=== PATIENT | male | born 1935 | race Caucasian/White ===

== ENCOUNTER 2016-04-04 16:39 | Inpatient (IN) | payer MEDICARE, OTHER ==
[2016-04-04] MEDS ORDERED: ONDANSETRON 4 MG TAB.RAPDIS PO ONE (16:47)
--- NOTE | 2016-04-04 16:47 | ER Document Report ---
ED Medical Screen (RME) - General Stated Complaint: ABDOMINAL PAIN Mode of Arrival: Ambulatory Information source: Patient Notes: 80 y/o M presents to ED c/o burning and squeezing type generalized abd pain with associated nausea over the last 4 days. I have greeted and performed a rapid initial assessment of this patient. A comprehensive ED assessment and evaluation of the patient, analysis of test results and completion of the medical decision making process will be conducted by additional ED providers. TRAVEL OUTSIDE OF THE [place] IN LAST 30 DAYS: No - Related Data Allergies/Adverse Reactions: No Known Allergies Allergy (Verified 04/04/16 16:44) Past Medical History - Past Medical History Cardiac Medical History: Denies: Hx Heart Attack, Hx Hypertension Pulmonary Medical History: Denies: Hx Asthma Neurological Medical History: Denies: Hx Cerebrovascular Accident, Hx Seizures GI Medical History: Denies: Hx Hepatitis, Hx Hiatal Hernia, Hx Ulcer Infectious Medical History: Denies: Hx Hepatitis Past Surgical History: Denies: Hx Open Heart Surgery, Hx Pacemaker Physical Exam - General General appearance: Alert In distress: None - Respiratory Respiratory status: No respiratory distress
[2016-04-04 17:31] LABS: ABSOLUTE BASOPHILS # (AUTO) 0.1 10^3/uL (0.0-0.2); ABSOLUTE MONOCYTES (AUTO) 1.2 10^3/uL (0.1-1.4); ABSOLUTE NEUT (AUTO) 15.4 10^3/uL (1.7-8.2); BASOPHILS % (AUTO) 0.5 % (0-2); EOSINOPHILS % (AUTO) 0.2 % (0-6); HEMATOCRIT 42.9 % (37.9-51.0); HGB HCT DIFFERENCE 2.1; LYMPHOCYTES % (AUTO) 5.9 % (13-45); MEAN CORPUSCULAR HEMOGLOBIN 30.9 pg (27.0-33.4); MEAN CORPUSCULAR HGB CONC 34.9 g/dL (32.0-36.0); MEAN CORPUSCULAR VOLUME 89 fl (80-97); MONOCYTES % (AUTO) 6.7 % (3-13); RED BLOOD COUNT 4.85 10^6/uL (4.35-5.55); RED CELL DISTRIBUTION WIDTH 12.9 % (11.5-14.0); SEGMENTED NEUTROPHILS % (AUTO) 86.7 % (42-78); WHITE BLOOD COUNT 17.8 10^3/uL (4.0-10.5)
[2016-04-04 17:55] LABS: ALANINE AMINOTRANSFERASE 38 U/L (21-72); ALBUMIN 3.5 g/dL (3.5-5.0); ALKALINE PHOSPHATASE 91 U/L (38-126); ANION GAP 12 (5-19); ASPARTATE AMINO TRANSFERASE 35 U/L (17-59); BILIRUBIN,TOTAL 0.8 mg/dL (0.2-1.3); BLOOD UREA NITROGEN 23 mg/dL (7-20); CALCIUM 9.1 mg/dL (8.4-10.2); CARBON DIOXIDE 24 mmol/L (22-30); CHLORIDE 100 mmol/L (98-107); CREATININE RESULT 0.78 mg/dL (0.52-1.25); GLUCOSE 97 mg/dL (75-110); LIPASE 231.4 U/L (23-300); SODIUM 135.8 mmol/L (137-145)
[2016-04-04] MEDS ORDERED: ONDANSETRON HCL INJ/PF 4 MG/2 ML SDV IV ONE (20:38)
[2016-04-04] MEDS ORDERED: NORMAL SALINE 1000 ML 1,000 ML IV ONE (20:38)
[2016-04-04] MEDS ORDERED: MORPHINE SULFATE 10 MG/ML INJ IV ONE (20:38)
--- NOTE | 2016-04-04 20:41 | ER Document Report ---
ED GI/ - General Chief Complaint: Abdominal Pain Stated Complaint: ABDOMINAL PAIN Time seen by provider: 20:30 Mode of Arrival: Ambulatory Notes: Patient is an 80-year-old male that comes emergency department for chief complaint of pain in his abdomen, over almost the entire abdomen, symptoms started almost 4 days ago and have been worsening, he states he has been having difficulty eating today and the pain became unbearable tonight. Patient denies fever. Patient denies abnormal bowel movements, denies vomiting but states he has developed nausea today. Patient denies any daily medications, reports past medical history of orthopedic surgeries on his shoulder and knees, denies any abdominal surgeries. TRAVEL OUTSIDE OF THE [place] IN LAST 30 DAYS: No - Related Data Allergies/Adverse Reactions: No Known Allergies Allergy (Verified 04/04/16 16:44) Past Medical History - General Information source: Patient - Social History Smoking Status: Never Smoker Chew tobacco use (# tins/day): No Frequency of alcohol use: None Drug Abuse: None Lives with: Family Family History: Reviewed & Not Pertinent Patient has suicidal ideation: No Patient has homicidal ideation: No - Past Medical History Cardiac Medical History: Reports: Hx Atrial Fibrillation Denies: Hx Hypertension Pulmonary Medical History: Denies: Hx Asthma Neurological Medical History: Denies: Hx Cerebrovascular Accident, Hx Seizures Renal/ Medical History: Denies: Hx Peritoneal Dialysis GI Medical History: Reports: Hx Gastroesophageal Reflux Disease. Denies: Hx Hepatitis, Hx Hiatal Hernia, Hx Ulcer Infectious Medical History: Denies: Hx Hepatitis Past Surgical History: Reports: Hx Orthopedic Surgery. Denies: Hx Open Heart Surgery, Hx Pacemaker - Immunizations Hx Diphtheria, Pertussis, Tetanus Vaccination: Yes Review of Systems - Review of Systems Constitutional: No symptoms reported EENT: No symptoms reported Cardiovascular: No symptoms reported Respiratory: No symptoms reported Gastrointestinal: See HPI Genitourinary: No symptoms reported Male Genitourinary: No symptoms reported Musculoskeletal: No symptoms reported Skin: No symptoms reported Hematologic/Lymphatic: No symptoms reported Neurological/Psychological: No symptoms reported Physical Exam - Vital signs Vitals: Temp Pulse Resp BP Pulse Ox 100.4 F 86 24 H 143/62 H 96 04/04/16 16:45 04/04/16 16:45 04/04/16 16:45 04/04/16 16:45 04/04/16 16:45 Interpretation: Normal - General General appearance: Appears well In distress: None - Patient does not appear to be in any distress - HEENT Head: Normocephalic, Atraumatic Eyes: Normal Pupils: PERRL - Respiratory Respiratory status: No respiratory distress Chest status: Nontender Breath sounds: Normal. No: Decreased air movement, Wheezing Chest palpation: Normal - Cardiovascular Rhythm: Regular. No: Irregularly irregular, Tachycardia Heart sounds: Normal auscultation, S1 appreciated, S2 appreciated Murmur: No - Abdominal Inspection: Normal Distension: No distension Bowel sounds: Normal Tenderness: Tender - Patient is tender with significant tenderness in the mid right to upper right abdomen; remaining abdomen is soft and benign - Back Back: Normal, Nontender. No: Tender - Extremities General upper extremity: Normal inspection, Nontender, Normal strength, Normal temperature General lower extremity: Normal inspection, Nontender, Normal strength, Normal temperature - Neurological Neuro grossly intact: Yes Cognition: Normal Orientation: AAOx4 [place] Coma Scale Eye Opening: Spontaneous [place] Coma Scale Verbal: Oriented [place] Coma Scale Motor: Obeys Commands [place] Coma Scale Total: 15 Speech: Normal Motor strength normal: LUE, RUE, LLE, RLE Sensory: Normal - Psychological Associated symptoms: Normal affect, Normal mood - Skin Skin Temperature: Warm Skin Moisture: Dry Skin Color: Normal Course - Re-evaluation Re-evalutation: Patient with significant tenderness on examination of the mid and upper right abdomen. Low-grade fever. Leukocytosis at 17,000 with no vomiting or other obvious explanation. Concern for acute abdomen. Acute abdominal series does not show any abnormalities, performing CAT scan. CAT scan suggestive of possible cholecystitis, no other acute abnormalities. Ultrasound will be performed to further evaluate the patient. Patient was discussed with Dr. Hernandez per [facility] guidelines. Patient will be given Invanz antibiotics broad- spectrum coverage. Is being given IV fluids. Patient was given Tylenol for fever. 04/05/16 02:30 Spoke with visitor services information assistant, Dr. Morrow, patient will be admitted for suspected cholecystitis and possible sepsis. Repeated vitals again, repeat vitals show no fever but now patient has tachycardia, moving to a different room. Patient placed on monitor, patient was found to be in atrial fibrillation with RVR, I asked patient if he had a history of A. fib and he states he does, he states that he takes Eliquis and heart rate medication at home. Patient also takes Nexium. I reminded him that he told me he took no daily medications and had no other medical history other than orthopedic surgeries, he states that he forgot. Initial nurse also states patient denied any daily medications. Patient states he has not taken Eliquis for 1 week. Given Cardizem bolus, will place on Cardizem drip. Patient still denies any chest pain, denies shortness of breath. Discussed with Dr. Hernandez again, recommends heparin instead of Lovenox because of upcoming suspected surgery. Called Dr. Morrow back for an update, recommends admit to medicine with surgical consult. Patient's heart rate improved on Cardizem bolus and drip, on heparin drip, patient with no current complaints. Discussed with Dr. Grover, internal medicine, patient will be admitted to the ICU. - Vital Signs Vital signs: Temp Pulse Resp BP Pulse Ox 98.6 F 123 H 24 H 119/75 94 04/05/16 02:18 04/05/16 02:18 04/04/16 16:45 04/05/16 02:18 04/05/16 02:18 - Laboratory Result Diagrams: 04/04/16 17:12 04/04/16 17:12 Laboratory results interpreted by me: 04/04/16 04/04/16 04/04/16 17:12 17:12 21:20 WBC 17.8 H Seg Neutrophils % 86.7 H Lymphocytes % 5.9 L Absolute Neutrophils 15.4 H APTT Sodium 135.8 L BUN 23 H Urine Protein 100 H Urine Ketones TRACE H 04/05/16 04:00 WBC Seg Neutrophils % Lymphocytes % Absolute Neutrophils APTT 40.7 H Sodium BUN Urine Protein Urine Ketones Critical Care Note - Critical Care Note Total time excluding time spent on procedures (mins): 50 - acute cholelithiasis , fever, atrial fibrillation with RVR Comments: Please allow 50 minutes of critical care time for evaluation and treatment of patient with acute cholecystitis and fever with pain medication, IV fluids, antibiotics. Treatment of atrial fibrillation with rapid ventricular response with Cardizem bolus, drip, heparin bolus, heparin drip. Consultation with surgery, consultation with hospitalist, multiple re-evaluations, admission to the ICU. Discharge - Discharge Clinical Impression: Cholecystitis, Atrial fibrillation with rapid ventricular response Abdominal pain Qualifiers: Abdominal location: generalized Qualified Code(s): R10.84 - Generalized abdominal pain Leukocytosis Qualifiers: Leukocytosis type: unspecified Qualified Code(s): D72.829 - Elevated white blood cell count, unspecified Fever Qualifiers: Fever type: unspecified Qualified Code(s): R50.9 - Fever, unspecified Condition: Stable Disposition: ADMITTED INPATIENT Admitting Provider: Hospitalist - Dr. Grover Unit Admitted: ICU
[2016-04-04] MEDS ORDERED: ACETAMINOPHEN 325 MG TABLET PO ONE (20:58)
[2016-04-04 21:44] LABS: APPEARANCE,URINE CLEAR; BILIRUBIN,URINE NEGATIVE (NEGATIVE); GLUCOSE, URINE NEGATIVE (NEGATIVE); KETONES,URINE TRACE mg/dL (NEGATIVE); LEUKOCYTE ESTERASE,URINE NEGATIVE (NEGATIVE); NITRITE,URINE NEGATIVE (NEGATIVE); PROTEIN,URINE 100 mg/dL (NEGATIVE); URINE SPECIFIC GRAVITY 1.027; UROBILINOGEN,URINE NEGATIVE mg/dL (<2.0)
[2016-04-05] MEDS ORDERED: ERTAPENEM SODIUM INJ 1 GM VIAL IV ONE (00:20)
[2016-04-05] MEDS ORDERED: NORMAL SALINE 1000 ML 1,000 ML IV PRN ×2 (02:18→14:32)
[2016-04-05] MEDS ORDERED: NORMAL SALINE 1000 ML 1,000 ML IV ONE (02:24)
[2016-04-05] MEDS ORDERED: DILTIAZEM HCL INJ 25 MG/5 ML VIAL IV ONE (03:14)
[2016-04-05] MEDS ORDERED: DILTIAZEM HCL/D5W 125 ML IV PRN ×3 (03:33→14:35)
[2016-04-05] MEDS ORDERED: HEPARIN SOD (PORCINE) 1,000 UNIT/ML 10 ML VIAL IV ONE (03:34)
[2016-04-05] MEDS ORDERED: HEPARIN SOD (PORCINE) 1,000 UNIT/ML 10 ML VIAL IV PRN ×2 (03:34→07:28)
[2016-04-05] MEDS ORDERED: HEPARIN SODIUM,PORCINE/D5W 250 ML IV PRN ×2 (03:34→07:28)
[2016-04-05 04:15] LABS: PROTHROMBIN TIME 15.1 SEC (11.4-15.4)
[2016-04-05 04:16] LABS: PARTIAL THROMBOPLASTIN TIME 40.7 SEC (23.5-35.8)
[2016-04-05] MEDS ORDERED: ACETAMINOPHEN 325 MG TABLET PO PRN (07:39)
[2016-04-05] MEDS ORDERED: MAGNESIUM HYDROXIDE SUSP 30 ML UDCUP PO PRN (07:39)
[2016-04-05] MEDS ORDERED: DEXTROSE 5%-NORMAL SALINE 1,000 ML IV PRN (07:40)
[2016-04-05] MEDS ORDERED: MORPHINE SULFATE 10 MG/ML INJ IV PRN ×2 (07:43→12:24)
--- NOTE | 2016-04-05 08:24 | PDOC H&P ---
History of Present Illness Admission Date/PCP: 04/05/16 04:39 Dr. Garcia Patient complains of: Abdominal pain History of Present Illness: ESTER CARTER JR is a 80 year old male with underlying chronic atrial fibrillation, on Eliquis for same, along with mild reflux and arthritis who presents to the emergency room for evaluation of a four-day history of slowly progressive mostly upper abdominal combination cramping and sharp pain with associated nausea and nonbloody non-coffee ground emesis. Nothing in particular made the pain worse, just simply gradually increased with time. Patient states he's felt so bad over the last several days that he basically has taken no medication whatsoever, including his Eliquis, along with other medications. No prior such episodes of pain. No specific fatty food intolerance. No previous known gallbladder problems. No dysuria, and only one episode of diarrhea. No fever or chills. No history of peptic ulcer disease. Patient has been discussed with emergency room nurse practitioner who evaluated the patient. Prior to my being contacted, the nurse practitioner did discuss the patient more than once with the on-call surgicalist. Request made to admit to hospitalist service with surgery consult, due to multiple ongoing significant problems.. Patient was noted to be in atrial fibrillation with rapid ventricular response and was started on Cardizem drip by the emergency room staff. When it was realized that patient had been off Eliquis for a number of days, he was also started on heparin drip, also by the emergency room staff. Laboratory results are listed in [employer] and are reviewed. X-ray summary results are listed below, with full report(s) reviewed. . EKG reviewed. No old EKG available for comparison. Social history/personal habits: . Lives alone. Retired. 2 sons. No tobacco use for 30+ years. Rare alcohol use. No illicit drug use. Allergies/adverse reactions NKDA. Home medications Home medications initially autopopulated into [employer] may not accurately reflect patient's true medications, dosages, and/or frequencies. Unfortunately, patient uncertain of medications/dosages/frequencies. Order has been entered for staff to contact family, outpatient physician, and/or pharmacy to more accurately determine medications, dosages, and frequencies and to contact physician when that has been accomplished. REVIEW OF SYSTEMS: Constitutional: No fever or chills. Eyes: Wears glasses. ENT: No swallowing problems or complaints. Partial hearing loss. Pulmonary: No current complaints. Cardiovascular: No current complaints, including chest pain. Gastrointestinal: See history and present illness. Skin: No current complaints, including rashes. Hematologic: No unusual easy bruising or bleeding. Neurologic: No current complaints, including numbness or tingling. Musculoskeletal: Joint pain from arthritis. Psychiatric: No current complaints, including anxiety or depression. [ Endocrine: No current complaints, including polyuria. Genitourinary: No current complaints, including dysuria. PHYSICAL EXAMINATION: 5 feet 6 inches tall. 112 kg. BMI 39.9 kg/m. Blood pressure 134/73. Pulse 118 and slightly irregular. 93% saturation on room air. Respirations are 27 and unlabored. Temperature 98.6; 100.4 upon arrival in the emergency room. Obese but also somewhat stocky, somewhat chronically ill-appearing elderly male, who nevertheless appears a bit younger than his stated age. Pleasant awake alert and cooperative. Appears to be perhaps slightly fatigued, and to feel perhaps a bit under the weather, so to speak. Skin is warm and dry. No grossly obvious evidence of rash in areas of skin examined. No subcutaneous nodules palpated. ENT: Mildly hard of hearing to normal conversation. Tongue midline on protrusion pink and slightly tacky. Eyes: No scleral icterus. Pupils equal and reactive to light at 4 mm. [place] conjunctivae. Neck is supple and nontender to gentle active range of motion and palpation. Midline trachea. No palpable thyroid nodule mass enlargement or tenderness. Lymphatic: No palpable cervical or clavicular nodes. Neck and lymphatic exams limited by patient body habitus. Psychiatric: Fair to reasonable insight into acute and chronic medical issues. Oriented to time location and why here. Rather talkative gentleman. Lungs: Auscultation reveals clear and equal breath sounds bilaterally. No use of accessory respiratory muscles. Cardiovascular: Heart regular rate and rhythm, without gallop murmur or rub. No carotid or abdominal aortic bruits. No ankle or pedal edema. Faintly palpable dorsalis pedis pulses. Abdomen: soft, obese, slightly distended nontender, other than quite scant right upper quadrant tenderness to palpation, with positive bowel sounds. Unable to adequately evaluate abdomen for masses or organomegaly due to body habitus and distention. Extremities: Feet are warm and dry. No calf tenderness to compression. No grossly obvious visual evidence of calf swelling. Gentle manipulation of lower extremities fails to reveal any obvious evidence of injury or instability to knees hips or ankles. Neurologic: Moves upper extremities grossly normally. Patellar reflexes absent. Absent Babinski. Light touch is intact at feet. Dorsiflexion and plantarflexion of feet 5 / 5 and symmetric. Past Medical History Cardiac Medical History: Reports: Atrial Fibrillation Denies: DVT, Myocardial Infarction, Hyperlipidema, Hypertension, Pulmonary Embolism Pulmonary Medical History: Denies: Asthma, Chronic Obstructive Pulmonary Disease (COPD) EENT Medical History: Reports: Eyes - Glasses, Ears - Partial hearing loss Denies: Throat Neurological Medical History: Denies: Hemorrhagic CVA, Ischemic CVA, Seizures Endocrine Medical History: Denies: Diabetes Mellitus Type 1, Diabetes Mellitus Type 2, Hyperthyroidism, Hypothyroidism Renal/ Medical History: Reports: None GI Medical History: Reports: Gastroesophageal Reflux Disease Denies: Cirrhosis, Hepatitis, Hiatal Hernia, Peptic Ulcer Disease Musculoskeltal Medical History: Reports: Arthritis Skin Medical History: Reports: None Psychiatric Medical History: Denies: Alcohol Dependency, Depression, General Anxiety Disorder, Substance Abuse, Tobacco Dependency Hematology: Denies: Anemia Infectious Medical History: Denies: Hepatitis B, Hepatitis C Past Surgical History Past Surgical History: Reports: Orthopedic Surgery - Bilateral total knee replacement. Right shoulder surgery. Social History Information Source: Patient, Emergency Med Personnel, [facility] Records Lives with: Alone Smoking Status: Former Smoker Frequency of Alcohol Use: Rare Drugs: None - Advance Directive Resuscitation Status: Full Code Surrogate healthcare decision maker:: His son Cornelius. Family History Family History: Reviewed & Not Pertinent Parental Family History Reviewed: Yes Children Family History Reviewed: Yes Sibling(s) Family History Reviewed.: Yes Medication/Allergy Home Medications: Apixaban [Eliquis 5 mg Tablet] 5 mg PO BID 04/05/16 Esomeprazole Magnesium [Nexium] 40 mg PO DAILY 04/05/16 Acidoph/L.bulg/Bif.b/S.thermop [Bacid Caplet] 1 each PO BID #20 tablet 04/09/16 Amox Tr/Potassium Clavulanate [Augmentin "500" Tablet] 1 tab PO Q8 #15 tablet 04/09/16 Furosemide [Lasix] 20 mg PO QAM #0 04/09/16 Metoprolol Succinate [Toprol Xl 25 mg Tab.sr] 25 mg PO DAILY #30 tab.sr.24h Tamsulosin HCl [Flomax 0.4 mg Cap.sr] 0.4 mg PO DAILY #30 cap.sr.24h 04/09/16 Allergies/Adverse Reactions: No Known Allergies Allergy (Verified 04/04/16 16:44) Physical Exam Vital Signs: Temp Pulse Resp BP Pulse Ox 98.6 F 123 H 24 H 119/75 94 04/05/16 02:18 04/05/16 02:18 04/04/16 16:45 04/05/16 02:18 04/05/16 02:18 Results Impressions: Abdomen/Pelvis CT 04/04/16 00:00 IMPRESSION: 1. QUESTIONABLE FAINT INFLAMMATION ADJACENT TO THE GALLBLADDER, POSSIBLE CHOLECYSTITIS. NO DEFINITE CALCIFIED STONES IDENTIFIED, ALTHOUGH CT CAN HAVE A LOW SENSITIVITY FOR SMALL CALCULI. 2. FATTY LESION IN THE RIGHT ADRENAL GLAND, POSSIBLE ADENOMA OR MYELOLIPOMA. 3. SMALL CORTICAL CYSTS IN THE LEFT KIDNEY. 4. NO OTHER SIGNIFICANT FINDING. Acute Abdomen Series 04/04/16 16:45 IMPRESSION: NO RADIOGRAPHIC EVIDENCE FOR ACUTE ABDOMINAL DISEASE. Abdomen Ultrasound 04/05/16 00:28 IMPRESSION: SLUDGE IN THE GALLBLADDER. MILD GALLBLADDER WALL THICKENING AND TRACE PERICHOLECYSTIC FLUID. POSSIBLE CHOLECYSTITIS. Assessment & Plan - Diagnosis (1) Atrial fibrillation with rapid ventricular response Is this a current diagnosis for this admission?: YesPlan: Currently on Cardizem drip. Wean as tolerated.Resume home medications as appropriate once these have been determined and reviewed. (2) Cholecystitis Is this a current diagnosis for this admission?: YesPlan: Surgery consult. Preop cardiology consult. Antibiotics will consist of Zosyn along with intravenous Flagyl. I have strongly encouraged patient not to get out of bed without notifying staff , to avoid a fall with injury. Knee high SCDs for DVT prophylaxis; with patient systemically anticoagulated, no need for Lovenox or subcutaneous heparin.]Resume home medications as appropriate once these have been determined and reviewed. Impression and plans were discussed with patient, who concurs. Time spent in evaluation and management of patient: 74 minutes. (3) Noncompliance Is this a current diagnosis for this admission?: Yes (4) Anticoagulated Is this a current diagnosis for this admission?: YesPlan: Resume home medications as appropriate once these have been determined and reviewed. - Inpatient Certification Based on my medical assessment, after consideration of the patient's comorbidities, presenting symptoms, or acuity I expect that the services needed warrant INPATIENT care.: Yes I certify that my determination is in accordance with my understanding of Medicare's requirements for reasonable and necessary INPATIENT services [42 CFR 412.3e].: Yes Medical Necessity: Need Close Monitoring Due to Risk of Patient Decompensation, Need For IV Fluids, Need For Continuous Telemetry Monitoring, Need for IV Antibiotics, Need for Surgery, Risk of Diagnosis Which Will Require Inpatient Eval/Care/Monitoring Post Hospital Care: D/C or Transfer Summary
[2016-04-05] MEDS ORDERED: PIPERACILLIN SODIUM/TAZOBACTAM 4.5 GM in NORMAL SALINE 100 ML IV ONE (08:30)
[2016-04-05] MEDS ORDERED: METRONIDAZOLE 500 MG/NS RTU 100 ML IV ONE (08:30)
[2016-04-05] MEDS ORDERED: BUPIVACAINE HCL 0.25 % INJ/PF (2.5 MG/1 ML) 30 ML VIAL ONE (08:46)
[2016-04-05 08:59] LABS: ABSOLUTE BASOPHILS # (AUTO) 0.1 10^3/uL (0.0-0.2); ABSOLUTE EOSINOPHILS # (AUTO) 0.1 10^3/uL (0.0-0.6); ABSOLUTE NEUT (AUTO) 13.1 10^3/uL (1.7-8.2); BASOPHILS % (AUTO) 0.8 % (0-2); EOSINOPHILS % (AUTO) 0.5 % (0-6); HEMATOCRIT 43.1 % (37.9-51.0); HGB HCT DIFFERENCE 1.9; LYMPHOCYTES % (AUTO) 6.3 % (13-45); MEAN CORPUSCULAR HEMOGLOBIN 31.1 pg (27.0-33.4); MEAN CORPUSCULAR HGB CONC 34.9 g/dL (32.0-36.0); MEAN CORPUSCULAR VOLUME 89 fl (80-97); MONOCYTES % (AUTO) 6.5 % (3-13); RED BLOOD COUNT 4.83 10^6/uL (4.35-5.55); RED CELL DISTRIBUTION WIDTH 12.9 % (11.5-14.0); SEGMENTED NEUTROPHILS % (AUTO) 85.9 % (42-78); WHITE BLOOD COUNT 15.3 10^3/uL (4.0-10.5)
--- NOTE | 2016-04-05 09:13 | CONSULTATION REPORT E ---
Consultation Report NAME: ESTER CARTER : 1935 AGE: 80Y DATE: *------* ED10 A TO: ALBINA HOLLAND M.D. FROM: ENRIQUE ROBERTS M.D. Requesting Physician REQUESTING PHYSICIAN: The patient seen at the request of the Emergency Department. HISTORY OF PRESENT ILLNESS: The patient is an 80-year-old white male, who comes by ground rescue to [facility] Emergency [facility], complaining of acute onset abdominal pain, primarily in the right upper quadrant and epigastric region. This was associated with difficulty eating and some radiation to the back. The symptoms started 4 days ago, but escalated in intensity. He denies vomiting but had some nausea. Bowel movements have been normal otherwise. He has no history of gastrointestinal problems. He was seen in the emergency department, where he was worked up and found to have significant right upper quadrant tenderness, a leukocytosis and ultrasonographic findings consistent with cholecystitis. A CT scan of the abdomen and pelvis performed earlier showed no other pathologic findings. The patient was admitted to the hospitalist service after being found to be in rapid atrial fibrillation. Furthermore, the patient was found to be on Eliquis but had not taken this medicine in approximately 1 week. PAST MEDICAL HISTORY: Significant for: 1. Atrial fibrillation. 2. Osteoarthritis. PAST SURGICAL HISTORY: Significant for: 1. Acute appendicitis with rupture as a child with appendectomy. 2. Bilateral knee replacements. MEDICATIONS: Include Eliquis. SOCIAL HISTORY: The patient does not drink or smoke; he is originally from [place]. He lives in [facility]. REVIEW OF SYSTEMS: CONSTITUTIONAL: The patient denies. CARDIOVASCULAR: As per HPI. GASTROINTESTINAL: As per HPI. MUSCULOSKELETAL: The patient denies. PHYSICAL EXAMINATION: The patient is examined in the emergency department. He is in mild distress. GENERAL: VITAL SIGNS: Heart rate 95, atrial fibrillation. Blood pressure 110/70. GENERAL: In no acute distress. PSYCH: Alert and oriented x4. HEAD: Eyes without icterus. NECK: No adenopathy. LUNGS: Diminished at the bases bilaterally. HEART: Without murmur. ABDOMEN: Exquisitely tenderness in right upper quadrant with guarding. EXTREMITIES: Upper and lower extremities without gross deformity. No edema. LABORATORY PROFILE: White blood cell count 17,000, hemoglobin 15. Coags show a PTT of 40. Sodium 135, BUN 23. Urinalysis unremarkable. Serologies unremarkable. CT scan of the abdomen and pelvis performed with IV and oral contrast show inflammation around the gallbladder and fatty mass involving the right adrenal gland and small cortical cysts. Gallbladder ultrasonography shows sludge in the gallbladder, pericholecystic fluid, and thickened gallbladder wall. IMPRESSION: 1. Acute cholecystitis/cholelithiasis. 2. Atrial fibrillation with rapid ventricular response. 3. History of chronic A-fib. 4. History of obesity. 5. History of arthritis. RECOMMENDATIONS: 1. Agree with plans for admission to hospitalist service. 2. Keep n.p.o. on IV fluids and heparin drip. 3. Agree with cardiology consult, perioperative clearance in anticipation for subsequent laparoscopic cholecystectomy, possible open. 4. Dr. Price, surgicalist for the weekend, will be following up with the patient. DICTATING PHYSICIAN: ALBINA HOLLAND M.D. [id number] PHY#: [id number] ID: [id number] JOB#: [id number] ACCT: [id number] cc:ALBINA HOLLAND M.D. >
[2016-04-05 09:17] LABS: ANION GAP 11 (5-19); BLOOD UREA NITROGEN 18 mg/dL (7-20); CALCIUM 8.8 mg/dL (8.4-10.2); CARBON DIOXIDE 23 mmol/L (22-30); CHLORIDE 103 mmol/L (98-107); CREATINE KINASE 98 U/L (55-170); CREATININE RESULT 0.73 mg/dL (0.52-1.25); GLUCOSE 94 mg/dL (75-110); POTASSIUM 3.6 mmol/L (3.6-5.0); SODIUM 137.2 mmol/L (137-145)
[2016-04-05 09:29] LABS: CREATINE KINASE MB 1.69 ng/mL (<4.55)
[2016-04-05] MEDS ORDERED: FENTANYL CITRATE INJ/PF 250 MCG/5 ML AMPULE ONE (09:29)
[2016-04-05] MEDS ORDERED: MIDAZOLAM 2 MG/2 ML INJ ONE (09:29)
[2016-04-05 09:30] LABS: TROPONIN I < 0.012 ng/mL
[2016-04-05] MEDS ORDERED: ACETAMINOPHEN 100 ML IV ONE (09:30)
[2016-04-05] MEDS ORDERED: DEXMEDETOMIDINE INJ 80 MCG/20 ML VIAL IV ONE (09:30)
[2016-04-05] MEDS ORDERED: PROPOFOL INJ 200 MG/20 ML VIAL IV ONE (09:30)
[2016-04-05] MEDS ORDERED: ROCURONIUM BROMIDE INJ 50 MG/5 ML VIAL IV ONE (09:33)
[2016-04-05] MEDS ORDERED: METOCLOPRAMIDE HCL INJ/PF 10 MG/2 ML SDV ONE (09:33)
[2016-04-05] MEDS ORDERED: GLYCOPYRROLATE INJ 0.4 MG/2 ML VIAL ONE (09:33)
[2016-04-05] MEDS ORDERED: LIDOCAINE 2% INJ-PF (20 MG/ML) 10 ML AMPUL ONE (09:33)
[2016-04-05] MEDS ORDERED: ONDANSETRON HCL INJ/PF 4 MG/2 ML SDV ONE (09:33)
[2016-04-05] MEDS ORDERED: NEOSTIGMINE METHYLSULFATE 10 MG/10 ML VIAL ONE (09:33)
[2016-04-05] MEDS ORDERED: PHENYLEPHRINE HCL INJ/PF 10 MG/1 ML SDV ONE (09:33)
[2016-04-05] MEDS ORDERED: SUCCINYLCHOLINE CHLORIDE INJ 200 MG/10 ML VIAL ONE (09:33)
[2016-04-05] MEDS ORDERED: DEXAMETHASONE SOD PHOSPHATE INJ 4 MG/1 ML VIAL ONE (09:33)
[2016-04-05] MEDS ORDERED: DOCUSATE SODIUM 100 MG/10 ML UDC PO SCH (10:00)
--- NOTE | 2016-04-05 11:52 | XCELERA REPORT ---
[address] [address] Transthoracic Echocardiogram Report Name: ESTER CARTER JR Age: 80 yrs Gender: Male : 1935 Patient Status: Inpatient Patient Location: \S\10\S\A Study Date: 04/05/2016 09:04 AM Height: 66 in Weight: 246 lb BSA: 2.2 m2 Procedure: A complete two-dimensional transthoracic echocardiogram was performed (2D, M-mode, spectral and color flow Doppler). The study was technically adequate with some images being suboptimal in quality. Reason For Study: afib with rvr Ordering Physician: LEXIE RAMOS Performed By: Snow Lebron Interpretation Summary The left ventricular ejection fraction is normal. There is borderline concentric left ventricular hypertrophy. The left ventricle is grossly normal size. Wall motion cannot be accurately commented on, but no definite regional wall motion abnormalities noted. The right ventricle is mildly dilated. The right ventricular systolic function is normal. The right atrium is mildly dilated. The left atrium is mildly dilated. There is no mitral valve stenosis. There is a trace to mild amount of mitral regurgitation There is no aortic valve stenosis No aortic regurgitation is present. There is a trace or physiologic amount of tricuspid regurgitation Tricuspid regurgitation jet envelope not well defined to measure RV systolic pressure accurately. The aortic root is not well visualized. The inferior vena cava was not visualized There is no pericardial effusion. MMode/2D Measurements \T\ Calculations RVDd: 3.3 cm LVIDd: 4.2 cm FS: 33.7 % Ao root diam: 3.1 cm IVSd: 0.98 cm LVIDs: 2.8 cm EDV(Teich): 77.8 ml LVPWd: 0.99 cm ESV(Teich): 28.8 ml Ao root area: 7.4 cm2 EF(Teich): 62.9 % LA dimension: 4.2 cm Doppler Measurements \T\ Calculations MV E max vignesh: MV P1/2t max vignesh: Ao V2 max: LV V1 max P.3 cm/sec 92.8 cm/sec 127.0 cm/sec 3.3 mmHg MV P1/2t: 70.9 msec Ao max PG: LV V1 max: 6.5 mmHg 91.3 cm/sec MVA(P1/2t): 3.1 cm2 MV dec slope: 383.4 cm/sec2 MV dec time: 0.25 sec PA V2 max: TR max vignesh: 96.7 cm/sec 230.0 cm/sec PA max PG: TR max P.2 mmHg 3.7 mmHg Left Ventricle The left ventricle is grossly normal size. There is borderline concentric left ventricular hypertrophy. The left ventricular ejection fraction is normal. LV diastolic function could not be adequately assessed due to atrial fibrilation. Wall motion cannot be accurately commented on, but no definite regional wall motion abnormalities noted. Right Ventricle The right ventricle is mildly dilated. There is normal right ventricular wall thickness. The right ventricular systolic function is normal. Atria The right atrium is mildly dilated. The left atrium is mildly dilated. Interarterial septum not well visualized and not well dopplered. Cannot comment on ASD/PFO presence. Mitral Valve The mitral valve is grossly normal. There is no mitral valve stenosis. There is a trace to mild amount of mitral regurgitation. Aortic Valve The aortic valve is not well visualized secondary to technical limitations. There is no aortic valve stenosis. No aortic regurgitation is present. Tricuspid Valve The tricuspid valve is not well visualized, but is grossly normal. There is no tricuspid stenosis. There is a trace or physiologic amount of tricuspid regurgitation. Tricuspid regurgitation jet envelope not well defined to measure RV systolic pressure accurately. Pulmonic Valve The pulmonic valve is not well visualized. Great Vessels The aortic root is not well visualized. The inferior vena cava was not visualized. Effusions There is no pericardial effusion. : LEXIE RAMOS > Jules Tejeda
[2016-04-05] MEDS ORDERED: PIPERACILLIN SODIUM/TAZOBACTAM 4.5 GM in NORMAL SALINE 100 ML IV SCH (12:00)
--- NOTE | 2016-04-05 12:23 | PDOC CONSULTATION ---
Consultation Consult Date: 04/05/16 Attending physician:: ENRIQUE ROBERTS Consult reason:: Preop clearance, atrial fibrillation History of Present Illness Admission Date/PCP: 04/05/16 07:33 RACHEL BRUCE MD Patient complains of: Abdominal pain History of Present Illness: ESTER CARTER JR is a 80 year old male with underlying chronic atrial fibrillation, on Eliquis for same, along with mild reflux and arthritis who presents to the emergency room for evaluation of a four-day history of slowly progressive mostly upper abdominal combination cramping and sharp pain with associated nausea and nonbloody non-coffee ground emesis. Nothing in particular made the pain worse, just simply gradually increased with time. Patient states he's felt so bad over the last several days that he basically has taken no medication whatsoever, including his Eliquis, along with other medications. No prior such episodes of pain. No specific fatty food intolerance. No previous known gallbladder problems. No dysuria, and only one episode of diarrhea. No fever or chills. No history of peptic ulcer disease. On questioning patient denied any chest pain, shortness of breath. Patient claims he is physically active and is able to dress himself and shop for himself. Past Medical History Cardiac Medical History: Reports: Atrial Fibrillation Denies: DVT, Myocardial Infarction, Hyperlipidema, Hypertension, Pulmonary Embolism Pulmonary Medical History: Denies: Asthma, Chronic Obstructive Pulmonary Disease (COPD) EENT Medical History: Reports: Eyes - Glasses, Ears - Partial hearing loss Denies: Throat Neurological Medical History: Denies: Hemorrhagic CVA, Ischemic CVA, Seizures Endocrine Medical History: Denies: Diabetes Mellitus Type 1, Diabetes Mellitus Type 2, Hyperthyroidism, Hypothyroidism Renal/ Medical History: Reports: None GI Medical History: Reports: Gastroesophageal Reflux Disease Denies: Cirrhosis, Hepatitis, Hiatal Hernia, Peptic Ulcer Disease Musculoskeltal Medical History: Reports: Arthritis Skin Medical History: Reports: None Psychiatric Medical History: Denies: Alcohol Dependency, Depression, General Anxiety Disorder, Substance Abuse, Tobacco Dependency Hematology: Denies: Anemia, Sickle Cell Disease Infectious Medical History: Denies: Hepatitis B, Hepatitis C Past Surgical History Past Surgical History: Reports: Orthopedic Surgery - Bilateral total knee replacement. Right shoulder surgery. Denies: Pacemaker Social History Information Source: Patient Lives with: Alone Smoking Status: Former Smoker Frequency of Alcohol Use: Rare Drugs: None - Advance Directive Resuscitation Status: Full Code Surrogate healthcare decision maker:: Patient to [place] the surrogate decision maker Family History Family History: Reviewed & Not Pertinent Parental Family History Reviewed: Yes Children Family History Reviewed: Yes Sibling(s) Family History Reviewed.: Yes - Negative for premature coronary artery disease or sudden cardiac in the family amongst first degree relatives. Medication/Allergy Home Medications: Apixaban [Eliquis 5 mg Tablet] 5 mg PO BID 04/05/16 Esomeprazole Magnesium [Nexium] 40 mg PO DAILY 04/05/16 Furosemide [Lasix] 40 mg PO QAM 04/05/16 Allergies/Adverse Reactions: No Known Allergies Allergy (Verified 04/04/16 16:44) Review of Systems Review of Systems: Please see history of present illness and past medical history as wall. Constitutional: No fever or chills reported. Head : No recent chronic headaches, recent head injury. Eyes: No recent eye pain, diplopia, redness, discharge, acute visual changes. Ears: No recent chronic ear pain, acute hearing loss, ear discharge. Oral cavity: No recent ulcerations, bleeding, oral cavity discomfort. Neck: No recent acute neck pain reported. Hematologic: No recent easy bruising or bleeding or hematologic malignancy reported. Lymphatic: No recent lymphatic malignancy, chronic lymphadenopathy reported yet Cardiovascular system review: See history of present illness. Respiratory system review: No recent chronic cough, hemoptysis, blood clots in the lungs reported. Mild Shortness of breath on exertion Gastrointestinal system review: Recent abdominal pain associated with nausea and vomiting but no recent hematemesis, melena, recent change in bowel habits. Genitourinary system review: No recent acute or chronic hematuria, flank pain, UTI etc. reported. Skin system review: Negative for any recent abnormal bruising, no rash, no pruritus reported. Neurologic: No prior history of strokes, mini strokes, seizure disorder. Psychologic: No history of major psychosis or depression reported. Musculoskeletal: Minor aches and pains reported. No acute joint swelling reported. Endocrine: No recent polyuria, polydipsia, recent heat or cold intolerance. Physical Exam Vital Signs: Temp Pulse Resp BP Pulse Ox 99.7 F 123 H 11 L 135/75 H 96 04/05/16 08:30 04/05/16 02:18 04/05/16 09:01 04/05/16 09:01 04/05/16 09:01 Intake & Output 04/04/16 04/05/16 04/06/16 06:59 06:59 06:59 Intake Total 1200 Output Total 1450 Balance -250 Exam: GENERAL: well-nourished and in no acute distress. Alert and oriented x3 HEAD: Atraumatic, normocephalic. EYES: Pupils equal round and reactive to light, extraocular movements intact, sclera anicteric, conjunctiva are normal. ENT: TMs normal, nares patent, oropharynx clear without exudates. Moist mucous membranes. No oral ulcerations or bleeding gums noted NECK: supple without lymphadenopathy. Trachea is central. No cervical or axillary lymphadenopathy noted. Carotids are 2+, JVD WNL LUNGS: Respiration seems nonlabored, no significant accessory muscle action noted. Breath sounds clear to auscultation bilaterally and equal noted. No wheezes rales or rhonchi noted. No significant dullness noted on percussion. CHEST: Palpation of the chest wall shows no significant chest wall tenderness. No other significant abnormalities noted. HEART: [place] [employer], No PSH, 1/6 TAMIKO aortic area, 1/6 johnson systolic murmur mitral area, no rubs, no gallops. ABDOMEN: Soft, right upper quadrant and epigastric tenderness appreciated, normoactive bowel sounds. No guarding, no rebound. No rigidity noted . No masses appreciated. EXTREMITIES: Pedal pulses are 1-2+, no calf tenderness noted. No clubbing or cyanosis.trace to 1+ pedal edema noted NEUROLOGICAL: Focused neurological exam showed no significant neurologic deficit. Normal speech, no focal weakness appreciated. PSYCH: Normal mood, normal affect. Judgment and insight within normal limits. SKIN: No significant ecchymosis, rash, ulcerations or signs of pruritus noted. MUSCULOSKELETAL EXAM: No significant joint swelling noted. Results Laboratory Results: 04/05/16 08:41 04/05/16 08:41 04/05/16 04/05/16 08:41 08:41 WBC 15.3 H RBC 4.83 Hgb 15.0 Hct 43.1 MCV 89 MCH 31.1 MCHC 34.9 RDW 12.9 Plt Count 196 Seg Neutrophils % 85.9 H Lymphocytes % 6.3 L Monocytes % 6.5 Eosinophils % 0.5 Basophils % 0.8 Absolute Neutrophils 13.1 H Absolute Lymphocytes 1.0 Absolute Monocytes 1.0 Absolute Eosinophils 0.1 Absolute Basophils 0.1 Sodium 137.2 Potassium 3.6 Chloride 103 Carbon Dioxide 23 Anion Gap 11 BUN 18 Creatinine 0.73 Est GFR ( Amer) > 60 Est GFR (Non-Af Amer) > 60 Glucose 94 Calcium 8.8 04/05/16 04/05/16 08:41 08:41 Creatine Kinase 98 CK-MB (CK-2) 1.69 Troponin I < 0.012 EKG Comments: Atrial fibrillation with rapid ventricular response but no acute ST-T wave changes noted Impressions: Abdomen/Pelvis CT 04/04/16 00:00 IMPRESSION: 1. QUESTIONABLE FAINT INFLAMMATION ADJACENT TO THE GALLBLADDER, POSSIBLE CHOLECYSTITIS. NO DEFINITE CALCIFIED STONES IDENTIFIED, ALTHOUGH CT CAN HAVE A LOW SENSITIVITY FOR SMALL CALCULI. 2. FATTY LESION IN THE RIGHT ADRENAL GLAND, POSSIBLE ADENOMA OR MYELOLIPOMA. 3. SMALL CORTICAL CYSTS IN THE LEFT KIDNEY. 4. NO OTHER SIGNIFICANT FINDING. Acute Abdomen Series 04/04/16 16:45 IMPRESSION: NO RADIOGRAPHIC EVIDENCE FOR ACUTE ABDOMINAL DISEASE. Abdomen Ultrasound 04/05/16 00:28 IMPRESSION: SLUDGE IN THE GALLBLADDER. MILD GALLBLADDER WALL THICKENING AND TRACE PERICHOLECYSTIC FLUID. POSSIBLE CHOLECYSTITIS. Assessment & Plan - Diagnosis (1) Atrial fibrillation with rapid ventricular response Is this a current diagnosis for this admission?: Yes (2) Cholecystitis Is this a current diagnosis for this admission?: Yes (3) Preop cardiovascular exam Is this a current diagnosis for this admission?: Yes (4) Obesity Is this a current diagnosis for this admission?: Yes (5) Abnormal echocardiogram Is this a current diagnosis for this admission?: Yes (6) Sleep disorder breathing Is this a current diagnosis for this admission?: Yes - Notes Notes: Atrial fibrillation with rapid ventricular response: Recommend Cardizem drip or IV beta karie or esmolol drip for rate control. Would hold off on chronic anticoagulation while awaiting for surgery. It will need to be resumed once cleared by surgeon. Acute cholecystitis: Continue current management plans with IV antibiotics. Surgeons following. Preop cardiovascular examination: Patient without any chest pain. He does not seem to be in any CHF. 2-D echo was reviewed. It showed normal LVEF. Patient claims to be physically active. Patient cleared for surgery with acceptable risk. Obesity: Patient will benefit from weight loss but this could be arranged as an outpatient. Right ventricular enlargement: Patient may have underlying sleep apnea syndrome. This could be evaluated as an outpatient. Sleep disordered breathing: This is strongly suspected based on patient's significant obesity, atrial fibrillation, oropharyngeal exam and body habitus. Discussed that he might consider a sleep study as an outpatient since he is in relatively otherwise good health. - Time Time Spent: 30 to 50 Minutes - CODE STATUS was discussed, patient remains full code. Surrogate decision-maker patient's son. Multiple medical problems were addressed.More than 50% of the time spent coordinating care, discussing management plans with involved caregivers. Management plans discussed with involved personnels. Medical decision making was of moderate complexity. Medications reviewed and adjusted accordingly: Yes
[2016-04-05] MEDS ORDERED: PROMETHAZINE HCL INJ 25 MG/1 ML VIAL IV PRN ×2 (12:24)
[2016-04-05] MEDS ORDERED: FENTANYL CITRATE INJ/PF 100 MCG/2 ML AMPUL IV PRN ×3 (12:24)
[2016-04-05] MEDS ORDERED: ONDANSETRON HCL INJ/PF 4 MG/2 ML SDV IV PRN ×2 (12:24→12:45)
[2016-04-05] MEDS ORDERED: DIPHENHYDRAMINE HCL 50 MG/ML VIAL IV PRN (12:24)
[2016-04-05] MEDS ORDERED: MEPERIDINE HCL/PF INJ 25 MG/1 ML DISP.SYRIN IV PRN (12:24)
[2016-04-05] MEDS ORDERED: DILTIAZEM HCL/D5W 125 MG/125 ML RTUINJ IV ONE (12:31)
[2016-04-05] MEDS ORDERED: LORAZEPAM INJ 2 MG/1 ML VIAL ONE (12:36)
[2016-04-05] MEDS ORDERED: HYDROMORPHONE HCL INJ/PF 2 MG/ML AMPULE IV PRN (12:44)
[2016-04-05] MEDS ORDERED: FENTANYL CITRATE INJ/PF 100 MCG/2 ML AMPUL ONE (12:56)
[2016-04-05] MEDS ORDERED: DEXTROSE 5%-NORMAL SALINE 1,000 ML IV ONE (15:00)
[2016-04-05] MEDS: LORAZEPAM INJ 2 MG/1 ML VIAL IV PRN ×3 (15:25→22:03)
[2016-04-05] MEDS: METRONIDAZOLE 500 MG/NS RTU 100 ML IV SCH ×2 (15:26→22:04)
[2016-04-05] MEDS: PIPERACILLIN SODIUM/TAZOBACTAM 3.375 GM in NORMAL SALINE 100 ML IV SCH ×2 (16:27→22:05)
--- NOTE | 2016-04-05 16:55 | EKG REPORT ---
SEVERITY:- ABNORMAL ECG - ATRIAL FIBRILLATION BORDERLINE T ABNORMALITIES, DIFFUSE LEADS : Confirmed by: Oneida Reece MD 05-Apr-2016 16:54:33
--- NOTE | 2016-04-05 17:10 | PDOC PROGRESS REPORT ---
Subjective Progress Note for:: 04/05/16 Subjective:: Reason for visit: Follow-up acute cholecystitis in atrial fibrillation with RVR. 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 Nothing in particular made the pain worse, just simply gradually increased with time. Patient states he's felt so bad over the last several days that he basically has taken no medication whatsoever, including his Eliquis, along with other medications. No prior such episodes of pain. No specific fatty food intolerance. No previous known gallbladder problems. No dysuria, and only one episode of diarrhea. No fever or chills. No history of peptic ulcer disease. Patient has been discussed with emergency room nurse practitioner who evaluated the patient. Prior to my being contacted, the nurse practitioner did discuss the patient more than once with the on-call surgicalist. Request made to admit to hospitalist service with surgery consult, due to multiple ongoing significant problems.. Patient was noted to be in atrial fibrillation with rapid ventricular response and was started on Cardizem drip by the emergency room staff. When it was realized that patient had been off Eliquis for a number of days, he was also started on heparin drip, also by the emergency room staff." Patient was admitted and given broad-spectrum antibiotics, continued on a Cardizem drip, he was seen by general surgery, heparin drip was held and he was taken to the OR for laparoscopic cholecystectomy which he seemed to tolerate without difficulty. Operative note is not yet available. He is having some postoperative confusion requiring soft wrist restraints and this is entirely out of character according to the family gathered at the bedside. Subjective: The patient is too confused at present to provide a reliable review of systems her medical history. ROS: Unobtainable due to mental state. Physical Exam Vital Signs: Temp Pulse Resp BP Pulse Ox 98.7 F 77 22 H 126/60 H 97 04/05/16 15:58 04/05/16 15:58 04/05/16 15:58 04/05/16 14:00 02/24/17 15:58 Intake & Output 04/04/16 04/05/16 04/06/16 06:59 06:59 06:59 Intake Total 2520 Output Total 1420 Balance 1100 Weight 128.1 kg EXAM GENERAL: Mild emotional; well developed, well nourished; morbid obese; confused HEENT: normocephalic, atraumatic; no conjunctival injection, no scleral icterus ; oral mucosa moist; RESPIRATORY: no accessory muscle use, no increased WOB, good air entry bilaterally; no wheezes, rales, rhonchi; no inspiratory crackles CARDIO: no JVD; irregularly irregular; soft holo-systolic murmur; no tachycardia at present GI: soft; rotund; diminished bowel sounds; diffuse tenderness localizes to the right upper quadrant VASCULAR: no carotid bruit; no abdominal bruit; no pallor; 2+ radial, DP pulse ; normal capillary refill EXTREMITIES: no calf tender; no palpable cords in calf; no clubbing, cyanosis , pedal edema PSYCH: Confused SKIN: warm; moist; no petechiae; no telengectasias; no jaundice; no rash Results Laboratory Results: 04/05/16 08:41 04/05/16 08:41 04/05/16 04/05/16 08:41 08:41 WBC 15.3 H RBC 4.83 Hgb 15.0 Hct 43.1 MCV 89 MCH 31.1 MCHC 34.9 RDW 12.9 Plt Count 196 Seg Neutrophils % 85.9 H Lymphocytes % 6.3 L Monocytes % 6.5 Eosinophils % 0.5 Basophils % 0.8 Absolute Neutrophils 13.1 H Absolute Lymphocytes 1.0 Absolute Monocytes 1.0 Absolute Eosinophils 0.1 Absolute Basophils 0.1 Sodium 137.2 Potassium 3.6 Chloride 103 Carbon Dioxide 23 Anion Gap 11 BUN 18 Creatinine 0.73 Est GFR ( Amer) > 60 Est GFR (Non-Af Amer) > 60 Glucose 94 Calcium 8.8 04/05/16 04/05/16 08:41 08:41 Creatine Kinase 98 CK-MB (CK-2) 1.69 Troponin I < 0.012 Labs reviewed, leukocytosis, serum chemistries unremarkable, LFTs okay, influenza negative Impressions: Abdomen/Pelvis CT 04/04/16 00:00 IMPRESSION: 1. QUESTIONABLE FAINT INFLAMMATION ADJACENT TO THE GALLBLADDER, POSSIBLE CHOLECYSTITIS. NO DEFINITE CALCIFIED STONES IDENTIFIED, ALTHOUGH CT CAN HAVE A LOW SENSITIVITY FOR SMALL CALCULI. 2. FATTY LESION IN THE RIGHT ADRENAL GLAND, POSSIBLE ADENOMA OR MYELOLIPOMA. 3. SMALL CORTICAL CYSTS IN THE LEFT KIDNEY. 4. NO OTHER SIGNIFICANT FINDING. Acute Abdomen Series 04/04/16 16:45 IMPRESSION: NO RADIOGRAPHIC EVIDENCE FOR ACUTE ABDOMINAL DISEASE. Abdomen Ultrasound 04/05/16 00:28 IMPRESSION: SLUDGE IN THE GALLBLADDER. MILD GALLBLADDER WALL THICKENING AND TRACE PERICHOLECYSTIC FLUID. POSSIBLE CHOLECYSTITIS. Status: Imported from PACS - Reports reviewed Assessment & Plan - Diagnosis (1) Cholecystitis Is this a current diagnosis for this admission?: YesPlan: Status post Lepper scopic cholecystectomy; continue broad-spectrum antibiotics and aggressive IV fluid resuscitation. [place] diet per general surgery. (2) Sepsis Is this a current diagnosis for this admission?: YesPlan: Evidenced by leukocytosis, tachycardia presentation and unknown source. Continue treatment as noted above. (3) Atrial fibrillation with rapid ventricular response Is this a current diagnosis for this admission?: YesPlan: Continue Cardizem drip and titrate to heart rate less than 110, changed to oral regimen when able. (4) Obesity Is this a current diagnosis for this admission?: YesPlan: Likely complicate his recovery. - Time Time Spent with patient: 25-34 minutes Medications reviewed and adjusted accordingly: Yes Within: within 72 hours
[2016-04-05] MEDS ORDERED: HALOPERIDOL LACTATE INJ 5 MG/1 ML VIAL IV PRN (17:32)
[2016-04-05] MEDS ORDERED: HALOPERIDOL LACTATE INJ 5 MG/1 ML VIAL IV ONE (18:30)
[2016-04-05] MEDS: DOCUSATE SODIUM 100 MG CAPSULE PO SCH (18:50)
[2016-04-06] MEDS: METRONIDAZOLE 500 MG/NS RTU 100 ML IV SCH ×2 (05:08→14:37)
[2016-04-06] MEDS: PIPERACILLIN SODIUM/TAZOBACTAM 3.375 GM in NORMAL SALINE 100 ML IV SCH ×3 (06:40→23:06)
[2016-04-06 07:27] LABS: HEMATOCRIT 37.7 % (37.9-51.0); HEMOGLOBIN 13.4 g/dL (13.5-17.0); HGB HCT DIFFERENCE 2.5; MEAN CORPUSCULAR HEMOGLOBIN 31.5 pg (27.0-33.4); MEAN CORPUSCULAR HGB CONC 35.5 g/dL (32.0-36.0); MEAN CORPUSCULAR VOLUME 89 fl (80-97); RED BLOOD COUNT 4.24 10^6/uL (4.35-5.55); RED CELL DISTRIBUTION WIDTH 13.1 % (11.5-14.0); WHITE BLOOD COUNT 10.7 10^3/uL (4.0-10.5)
[2016-04-06 07:46] LABS: ANION GAP 11 (5-19); BAND NEUTROPHILS % (MANUAL) 1 % (3-5); BASOPHILS % (MANUAL) 0 % (0-2); BLOOD UREA NITROGEN 20 mg/dL (7-20); CALCIUM 8.3 mg/dL (8.4-10.2); CARBON DIOXIDE 21 mmol/L (22-30); CHLORIDE 107 mmol/L (98-107); EOSINOPHILS % (MANUAL) 0 % (0-6); GLUCOSE 105 mg/dL (75-110); LYMPHOCYTES % (MANUAL) 7 % (13-45); MAGNESIUM 2.1 mg/dL (1.6-2.3); PHOSPHORUS 3.5 mg/dL (2.5-4.5); POTASSIUM 3.8 mmol/L (3.6-5.0); SODIUM 138.9 mmol/L (137-145); TOTAL CELLS COUNTED 100
[2016-04-06 07:47] LABS: RBC MORPHOLOGY COMMENT NORMO-CYTIC/CHROMIC
[2016-04-06] MEDS: DOCUSATE SODIUM 100 MG CAPSULE PO SCH ×2 (09:51→17:39)
[2016-04-06] MEDS ORDERED: METOPROLOL SUCCINATE 25 MG TAB.SR.24H PO ONE (11:00)
[2016-04-06] MEDS ORDERED: APIXABAN 5 MG TABLET PO ONE (11:00)
[2016-04-06] MEDS: OXYCODONE-ACETAMINOPHEN 5-325 MG TABLET PO PRN (12:11)
--- NOTE | 2016-04-06 12:47 | PDOC PROGRESS REPORT ---
Subjective Progress Note for:: 04/06/16 Subjective:: Patient status post cholecystectomy. He was noted to be confused and agitated last night. Therefore was in restraints. Today he is feeling better. Also he was noted to have converted to sinus rhythm. Physical Exam Vital Signs: Temp Pulse Resp BP Pulse Ox 98.7 F 73 18 127/58 H 98 04/06/16 07:32 04/06/16 07:32 04/06/16 07:32 04/06/16 07:32 04/06/16 07:32 Intake & Output 04/05/16 04/06/16 04/07/16 06:59 06:59 06:59 Intake Total 6426 Output Total 2450 20 Balance 3976 -20 Weight 137.1 kg Exam: GENERAL: well-nourished and in no acute distress. Alert and oriented x3 HEAD: Atraumatic, normocephalic. EYES: Pupils equal round and reactive to light, extraocular movements intact, sclera anicteric, conjunctiva are normal. ENT: TMs normal, nares patent, oropharynx clear without exudates. Moist mucous membranes. No oral ulcerations or bleeding gums noted NECK: supple without lymphadenopathy. Trachea is central. No cervical or axillary lymphadenopathy noted. Carotids are 2+, JVD WNL LUNGS: Respiration seems nonlabored, no significant accessory muscle action noted. Breath sounds clear to auscultation bilaterally and equal noted. No wheezes rales or rhonchi noted. No significant dullness noted on percussion. CHEST: Palpation of the chest wall shows no significant chest wall tenderness. No other significant abnormalities noted. HEART: [place] [employer], No PSH, 1/6 TAMIKO aortic area, 1/6 johnson systolic murmur mitral area, no rubs, no gallops. ABDOMEN: Soft, mild post surgical right upper quadrant tenderness appreciated, normoactive bowel sounds. No guarding, no rebound. No rigidity noted . No masses appreciated. EXTREMITIES: Pedal pulses are 1-2+, no calf tenderness noted. No clubbing or cyanosis.1+ pedal edema noted. Mild bilateral varicose veins noted in the lower extremities. NEUROLOGICAL: Focused neurological exam showed no significant neurologic deficit. Normal speech, no focal weakness appreciated. PSYCH: Normal mood, normal affect. Judgment and insight within normal limits. SKIN: No significant ecchymosis, rash, ulcerations or signs of pruritus noted. MUSCULOSKELETAL EXAM: No significant joint swelling noted. Results Laboratory Results: 04/06/16 06:29 04/06/16 06:29 04/06/16 04/06/16 06:29 06:29 WBC 10.7 H RBC 4.24 L Hgb 13.4 L Hct 37.7 L MCV 89 MCH 31.5 MCHC 35.5 RDW 13.1 Plt Count 185 Seg Neutrophils % Not Reportable Lymphocytes % Not Reportable Monocytes % Not Reportable Eosinophils % Not Reportable Basophils % Not Reportable Absolute Neutrophils Not Reportable Absolute Lymphocytes Not Reportable Absolute Monocytes Not Reportable Absolute Eosinophils Not Reportable Absolute Basophils Not Reportable Sodium 138.9 Potassium 3.8 Chloride 107 Carbon Dioxide 21 L Anion Gap 11 BUN 20 Creatinine 0.80 Est GFR ( Amer) > 60 Est GFR (Non-Af Amer) > 60 Glucose 105 Calcium 8.3 L Phosphorus 3.5 Magnesium 2.1 04/05/16 04/05/16 08:41 08:41 Creatine Kinase 98 CK-MB (CK-2) 1.69 Troponin I < 0.012 Impressions: Abdomen/Pelvis CT 04/04/16 00:00 IMPRESSION: 1. QUESTIONABLE FAINT INFLAMMATION ADJACENT TO THE GALLBLADDER, POSSIBLE CHOLECYSTITIS. NO DEFINITE CALCIFIED STONES IDENTIFIED, ALTHOUGH CT CAN HAVE A LOW SENSITIVITY FOR SMALL CALCULI. 2. FATTY LESION IN THE RIGHT ADRENAL GLAND, POSSIBLE ADENOMA OR MYELOLIPOMA. 3. SMALL CORTICAL CYSTS IN THE LEFT KIDNEY. 4. NO OTHER SIGNIFICANT FINDING. Acute Abdomen Series 04/04/16 16:45 IMPRESSION: NO RADIOGRAPHIC EVIDENCE FOR ACUTE ABDOMINAL DISEASE. Abdomen Ultrasound 04/05/16 00:28 IMPRESSION: SLUDGE IN THE GALLBLADDER. MILD GALLBLADDER WALL THICKENING AND TRACE PERICHOLECYSTIC FLUID. POSSIBLE CHOLECYSTITIS. Assessment & Plan - Diagnosis (1) Atrial fibrillation with rapid ventricular response Is this a current diagnosis for this admission?: Yes (2) Cholecystitis Is this a current diagnosis for this admission?: Yes (3) Preop cardiovascular exam Is this a current diagnosis for this admission?: Yes (4) Obesity Is this a current diagnosis for this admission?: Yes (5) Abnormal echocardiogram Is this a current diagnosis for this admission?: Yes (6) Sleep disorder breathing Is this a current diagnosis for this admission?: Yes - Notes Notes: Atrial fibrillation, now paroxysmal: Recommend rate control. Resume chronic anticoagulation once cleared by surgeon. Have advised patient to undergo a sleep study as treatment of sleep apnea may help maintain sinus rhythm. Acute cholecystitis: Patient is status post surgery. Patient has done well. Preop cardiovascular examination: Patient did well with surgery. Currently postoperative day one. Obesity: Patient will benefit from weight loss but this could be arranged as an outpatient. Right ventricular enlargement: Patient may have underlying sleep apnea syndrome. This could be evaluated as an outpatient. Sleep disordered breathing: This is strongly suspected based on patient's significant obesity, atrial fibrillation, oropharyngeal exam and body habitus. Discussed that he might consider a sleep study as an outpatient since he is in relatively otherwise good health. - Time Time with patient: 15-25 minutes - CODE STATUS was discussed, patient remains full code. Surrogate decision-maker unchanged. Multiple medical problems were addressed.More than 50% of the time spent coordinating care, discussing management plans with involved caregivers. Management plans discussed with involved personnels. Medical decision making was of moderate complexity.
--- NOTE | 2016-04-06 13:07 | PDOC PROGRESS REPORT ---
Subjective Progress Note for:: 04/06/16 Subjective:: feeling better Physical Exam Vital Signs: Temp Pulse Resp BP Pulse Ox 98.7 F 73 18 127/58 H 98 04/06/16 07:32 04/06/16 07:32 04/06/16 07:32 04/06/16 07:32 04/06/16 07:32 Intake & Output 04/05/16 04/06/16 04/07/16 06:59 06:59 06:59 Intake Total 6426 Output Total 2450 20 Balance 3976 -20 Weight 137.1 kg GI/Abdominal exam: PRESENT: other - soft abdomen brandan serous Results Laboratory Results: 04/06/16 06:29 04/06/16 06:29 04/06/16 04/06/16 06:29 06:29 WBC 10.7 H RBC 4.24 L Hgb 13.4 L Hct 37.7 L MCV 89 MCH 31.5 MCHC 35.5 RDW 13.1 Plt Count 185 Seg Neutrophils % Not Reportable Lymphocytes % Not Reportable Monocytes % Not Reportable Eosinophils % Not Reportable Basophils % Not Reportable Absolute Neutrophils Not Reportable Absolute Lymphocytes Not Reportable Absolute Monocytes Not Reportable Absolute Eosinophils Not Reportable Absolute Basophils Not Reportable Sodium 138.9 Potassium 3.8 Chloride 107 Carbon Dioxide 21 L Anion Gap 11 BUN 20 Creatinine 0.80 Est GFR ( Amer) > 60 Est GFR (Non-Af Amer) > 60 Glucose 105 Calcium 8.3 L Phosphorus 3.5 Magnesium 2.1 04/05/16 04/05/16 08:41 08:41 Creatine Kinase 98 CK-MB (CK-2) 1.69 Troponin I < 0.012 Impressions: Abdomen/Pelvis CT 04/04/16 00:00 IMPRESSION: 1. QUESTIONABLE FAINT INFLAMMATION ADJACENT TO THE GALLBLADDER, POSSIBLE CHOLECYSTITIS. NO DEFINITE CALCIFIED STONES IDENTIFIED, ALTHOUGH CT CAN HAVE A LOW SENSITIVITY FOR SMALL CALCULI. 2. FATTY LESION IN THE RIGHT ADRENAL GLAND, POSSIBLE ADENOMA OR MYELOLIPOMA. 3. SMALL CORTICAL CYSTS IN THE LEFT KIDNEY. 4. NO OTHER SIGNIFICANT FINDING. Acute Abdomen Series 04/04/16 16:45 IMPRESSION: NO RADIOGRAPHIC EVIDENCE FOR ACUTE ABDOMINAL DISEASE. Abdomen Ultrasound 04/05/16 00:28 IMPRESSION: SLUDGE IN THE GALLBLADDER. MILD GALLBLADDER WALL THICKENING AND TRACE PERICHOLECYSTIC FLUID. POSSIBLE CHOLECYSTITIS. Assessment & Plan - Plan Summary Plan Summary: gangrenous cholecystititis Doing better DC Braden Ambulate Diet as tolerated.
--- NOTE | 2016-04-06 13:31 | PDOC PROGRESS REPORT ---
Subjective Progress Note for:: 04/06/16 Subjective:: Reason for visit: Follow-up acute cholecystitis in atrial fibrillation with RVR. 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 Nothing in particular made the pain worse, just simply gradually increased with time. Patient states he's felt so bad over the last several days that he basically has taken no medication whatsoever, including his Eliquis, along with other medications. No prior such episodes of pain. No specific fatty food intolerance. No previous known gallbladder problems. No dysuria, and only one episode of diarrhea. No fever or chills. No history of peptic ulcer disease. Patient has been discussed with emergency room nurse practitioner who evaluated the patient. Prior to my being contacted, the nurse practitioner did discuss the patient more than once with the on-call surgicalist. Request made to admit to hospitalist service with surgery consult, due to multiple ongoing significant problems.. Patient was noted to be in atrial fibrillation with rapid ventricular response and was started on Cardizem drip by the emergency room staff. When it was realized that patient had been off Eliquis for a number of days, he was also started on heparin drip, also by the emergency room staff." Patient was admitted and given broad-spectrum antibiotics, continued on a Cardizem drip, he was seen by general surgery, heparin drip was held and he was taken to the OR for laparoscopic cholecystectomy which he seemed to tolerate without difficulty. Operative note is not yet available. He suffered some postoperative confusion requiring soft wrist restraints which was entirely out of character according to the family gathered at the bedside. This seems to have cleared somewhat overnight and with the use of atypical antipsychotics. Subjective: He remains a bit confused for me when I saw him this morning and largely uncooperative with this exam telling me to "stop that" and would not participate. ROS: Unobtainable due to mental state. Physical Exam Vital Signs: Temp Pulse Resp BP Pulse Ox 98.1 F 73 18 139/60 H 98 04/06/16 12:49 04/06/16 12:49 04/06/16 12:49 04/06/16 12:49 04/06/16 12:49 Intake & Output 04/05/16 04/06/16 04/07/16 06:59 06:59 06:59 Intake Total 6426 0 Output Total 2450 320 Balance 3976 -320 Weight 137.1 kg EXAM GENERAL: Easily agitated; well developed, well nourished; morbid obese; confused HEENT: normocephalic, atraumatic; no conjunctival injection, no scleral icterus ; oral mucosa moist; RESPIRATORY: no accessory muscle use, no increased WOB, good air entry bilaterally; no wheezes, rales, rhonchi; no inspiratory crackles CARDIO: no JVD; RRR; soft holo-systolic murmur; no tachycardia at present, converted to normal sinus rhythm overnight GI: soft; rotund; diminished bowel sounds; diffuse tenderness, EBONI drain in the right upper quadrant with serosanguineous fluid VASCULAR: no pallor; 2+ radial, DP pulse; normal capillary refill EXTREMITIES: no calf tender; no palpable cords in calf; no clubbing, cyanosis , pedal edema PSYCH: Confused SKIN: warm; moist; no petechiae; no telengectasias; no jaundice; no rash Results Laboratory Results: 04/06/16 06:29 04/06/16 06:29 04/06/16 04/06/16 06:29 06:29 WBC 10.7 H RBC 4.24 L Hgb 13.4 L Hct 37.7 L MCV 89 MCH 31.5 MCHC 35.5 RDW 13.1 Plt Count 185 Seg Neutrophils % Not Reportable Lymphocytes % Not Reportable Monocytes % Not Reportable Eosinophils % Not Reportable Basophils % Not Reportable Absolute Neutrophils Not Reportable Absolute Lymphocytes Not Reportable Absolute Monocytes Not Reportable Absolute Eosinophils Not Reportable Absolute Basophils Not Reportable Sodium 138.9 Potassium 3.8 Chloride 107 Carbon Dioxide 21 L Anion Gap 11 BUN 20 Creatinine 0.80 Est GFR ( Amer) > 60 Est GFR (Non-Af Amer) > 60 Glucose 105 Calcium 8.3 L Phosphorus 3.5 Magnesium 2.1 04/05/16 04/05/16 08:41 08:41 Creatine Kinase 98 CK-MB (CK-2) 1.69 Troponin I < 0.012 Labs reviewed in trend is encouraging. Assessment & Plan - Diagnosis (1) Cholecystitis Is this a current diagnosis for this admission?: YesPlan: Gangrenous gallbladder removed, Status post laparoscopic cholecystectomy; continue broad-spectrum antibiotics and aggressive IV fluid resuscitation. advance diet per general surgery. (2) Sepsis Is this a current diagnosis for this admission?: YesPlan: Evidenced by leukocytosis, tachycardia presentation and unknown source. Continue treatment as noted above. (3) Acute metabolic encephalopathy Is this a current diagnosis for this admission?: YesPlan: Likely secondary to the above, continue as needed atypical antipsychotics and anxiolytics. seems improved. (4) Atrial fibrillation with rapid ventricular response Is this a current diagnosis for this admission?: YesPlan: Rapid ventricular response likely secondary to the sepsis. Paroxysmal in nature as he has now converted to normal sinus rhythm, changed to oral Toprol- XL for rate control and resume home eliquis. (5) Obesity Is this a current diagnosis for this admission?: Yes - Time Time Spent with patient: 25-34 minutes Medications reviewed and adjusted accordingly: Yes Anticipated discharge: Home Within: within 48 hours
[2016-04-06] MEDS ORDERED: TAMSULOSIN HCL 0.4 MG CAP.SR.24H PO ONE (15:00)
[2016-04-06] MEDS: APIXABAN 5 MG TABLET PO SCH (17:40)
--- NOTE | 2016-04-06 19:29 | EKG REPORT ---
SEVERITY:- ABNORMAL ECG - SINUS RHYTHM FIRST DEGREE AV BLOCK : Confirmed by: Oneida Reece MD 06-Apr-2016 19:28:27
[2016-04-07] MEDS: METRONIDAZOLE 500 MG/NS RTU 100 ML IV SCH ×4 (00:32→22:11)
[2016-04-07 04:34] LABS: HEMATOCRIT 36.7 % (37.9-51.0); HEMOGLOBIN 12.9 g/dL (13.5-17.0); MEAN CORPUSCULAR HGB CONC 35.1 g/dL (32.0-36.0); MEAN CORPUSCULAR VOLUME 89 fl (80-97); RED BLOOD COUNT 4.15 10^6/uL (4.35-5.55); WHITE BLOOD COUNT 11.6 10^3/uL (4.0-10.5)
[2016-04-07 04:52] LABS: ALANINE AMINOTRANSFERASE 48 U/L (21-72); ALBUMIN 2.5 g/dL (3.5-5.0); ALKALINE PHOSPHATASE 60 U/L (38-126); ANION GAP 9 (5-19); ASPARTATE AMINO TRANSFERASE 18 U/L (17-59); BILIRUBIN,TOTAL 0.5 mg/dL (0.2-1.3); BLOOD UREA NITROGEN 18 mg/dL (7-20); CALCIUM 8.3 mg/dL (8.4-10.2); CARBON DIOXIDE 22 mmol/L (22-30); CHLORIDE 107 mmol/L (98-107); CREATININE RESULT 0.79 mg/dL (0.52-1.25); GLUCOSE 89 mg/dL (75-110); POTASSIUM 3.6 mmol/L (3.6-5.0); SODIUM 137.8 mmol/L (137-145); TOTAL PROTEIN 4.8 g/dL (6.3-8.2)
[2016-04-07] MEDS: PIPERACILLIN SODIUM/TAZOBACTAM 3.375 GM in NORMAL SALINE 100 ML IV SCH ×2 (06:59→15:08)
[2016-04-07] MEDS: METOPROLOL SUCCINATE 25 MG TAB.SR.24H PO SCH (09:13)
[2016-04-07] MEDS: APIXABAN 5 MG TABLET PO SCH ×2 (09:13→17:15)
[2016-04-07] MEDS: TAMSULOSIN HCL 0.4 MG CAP.SR.24H PO SCH (09:13)
[2016-04-07] MEDS: DOCUSATE SODIUM 100 MG CAPSULE PO SCH (09:14)
--- NOTE | 2016-04-07 10:28 | PDOC PROGRESS REPORT ---
Subjective Progress Note for:: 04/07/16 Subjective:: Reason for visit: Follow-up acute cholecystitis in atrial fibrillation with RVR. 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 Nothing in particular made the pain worse, just simply gradually increased with time. Patient states he's felt so bad over the last several days that he basically has taken no medication whatsoever, including his Eliquis, along with other medications. No prior such episodes of pain. No specific fatty food intolerance. No previous known gallbladder problems. No dysuria, and only one episode of diarrhea. No fever or chills. No history of peptic ulcer disease. Patient has been discussed with emergency room nurse practitioner who evaluated the patient. Prior to my being contacted, the nurse practitioner did discuss the patient more than once with the on-call surgicalist. Request made to admit to hospitalist service with surgery consult, due to multiple ongoing significant problems.. Patient was noted to be in atrial fibrillation with rapid ventricular response and was started on Cardizem drip by the emergency room staff. When it was realized that patient had been off Eliquis for a number of days, he was also started on heparin drip, also by the emergency room staff." Patient was admitted and given broad-spectrum antibiotics, continued on a Cardizem drip, he was seen by general surgery, heparin drip was held and he was taken to the OR for laparoscopic cholecystectomy which he seemed to tolerate without difficulty. He suffered some postoperative confusion requiring soft wrist restraints which was entirely out of character according to the family gathered at the bedside. This seems to have cleared somewhat overnight and with the use of atypical antipsychotics such that he is back to baseline, at least for me. Nursing reports intermittent confusion but is transient and he seems to recognize when it happens. Subjective: Nursing reports he is incontinent of urine and stool, because he is too weak to get up for toileting on his own and often doesn't call out until it' s too late which frustrates him mightily as he is usually quite independent. He complains the clear liquid diet is killing him and he wants real food. He states his pain is mild and well-controlled. He denies chest pain, palpitations , fevers or chills. He converted to normal sinus rhythm and remains in same within 24 hours ago. ROS: per HPI plus a total of 10 systems reviewed, pertinent positives and negatives noted above, remaining systems negative. Physical Exam Vital Signs: Temp Pulse Resp BP Pulse Ox 98.7 F 73 20 143/63 H 93 04/07/16 07:21 04/07/16 07:21 04/07/16 07:21 04/07/16 07:21 04/07/16 07:21 Intake & Output 04/06/16 04/07/16 04/08/16 06:59 06:59 06:59 Intake Total 6426 1582 Output Total 2450 910 Balance 3976 672 Weight 137.1 kg EXAM GENERAL: NAD; well developed, well nourished; morbid obese; alert and oriented to person place and situation HEENT: normocephalic, atraumatic; no conjunctival injection, no scleral icterus ; oral mucosa moist; RESPIRATORY: no accessory muscle use, no increased WOB, good air entry bilaterally; no wheezes, rales, rhonchi; no inspiratory crackles CARDIO: no JVD; RRR, seems to be in sinus rhythm at the bedside; soft holo- systolic murmur; no tachycardia GI: soft; rotund; diminished bowel sounds; mild and improved diffuse tenderness VASCULAR: no pallor; 2+ radial, DP pulse; normal capillary refill EXTREMITIES: no calf tender; no palpable cords in calf; no clubbing, cyanosis , pedal edema PSYCH: Normal mood, normal affect SKIN: warm; moist; no petechiae; no telengectasias; no jaundice; no rash Results Laboratory Results: 04/07/16 03:50 04/07/16 03:50 04/07/16 04/07/16 03:50 03:50 WBC 11.6 H RBC 4.15 L Hgb 12.9 L Hct 36.7 L MCV 89 MCH 31.0 MCHC 35.1 RDW 13.0 Plt Count 224 Sodium 137.8 Potassium 3.6 Chloride 107 Carbon Dioxide 22 Anion Gap 9 BUN 18 Creatinine 0.79 Est GFR ( Amer) > 60 Est GFR (Non-Af Amer) > 60 Glucose 89 Calcium 8.3 L Total Bilirubin 0.5 AST 18 ALT 48 Alkaline Phosphatase 60 Total Protein 4.8 L Albumin 2.5 L 04/05/16 04/05/16 08:41 08:41 Creatine Kinase 98 CK-MB (CK-2) 1.69 Troponin I < 0.012 Labs reviewed in very reassuring Assessment & Plan - Diagnosis (1) Cholecystitis Is this a current diagnosis for this admission?: YesPlan: Gangrenous gallbladder removed, Status post laparoscopic cholecystectomy; continue broad-spectrum antibiotics. Advance diet to regular. (2) Sepsis Is this a current diagnosis for this admission?: YesPlan: Improved. Evidenced by leukocytosis, tachycardia presentation and unknown source. Continue treatment as noted above. (3) Acute metabolic encephalopathy Is this a current diagnosis for this admission?: YesPlan: Transient and improving. Likely secondary to the above, continue as needed atypical antipsychotics and anxiolytics. Soft wrist restraints removed more than 24 hours ago. (4) Atrial fibrillation with rapid ventricular response Is this a current diagnosis for this admission?: YesPlan: Rapid ventricular response likely secondary to the sepsis. Paroxysmal in nature as he has now converted to normal sinus rhythm, changed to oral Toprol- XL for rate control and resumed home eliquis. (5) Obesity Is this a current diagnosis for this admission?: Yes - Time Time Spent with patient: 15-24 minutes Medications reviewed and adjusted accordingly: Yes Anticipated discharge: Home Within: within 48 hours
--- NOTE | 2016-04-07 13:51 | PDOC PROGRESS REPORT ---
Subjective Progress Note for:: 04/07/16 Subjective:: feeling better Had BM Tolrating diet Physical Exam Vital Signs: Temp Pulse Resp BP Pulse Ox 98.5 F 83 20 137/60 H 96 04/07/16 12:45 04/07/16 12:45 04/07/16 12:45 04/07/16 12:45 04/07/16 12:45 Intake & Output 04/06/16 04/07/16 04/08/16 06:59 06:59 06:59 Intake Total 6426 1582 222 Output Total 2450 910 Balance 3976 672 222 Weight 137.1 kg GI/Abdominal exam: PRESENT: other - Abdomen soft, nontender Results Laboratory Results: 04/07/16 03:50 04/07/16 03:50 04/07/16 04/07/16 03:50 03:50 WBC 11.6 H RBC 4.15 L Hgb 12.9 L Hct 36.7 L MCV 89 MCH 31.0 MCHC 35.1 RDW 13.0 Plt Count 224 Sodium 137.8 Potassium 3.6 Chloride 107 Carbon Dioxide 22 Anion Gap 9 BUN 18 Creatinine 0.79 Est GFR ( Amer) > 60 Est GFR (Non-Af Amer) > 60 Glucose 89 Calcium 8.3 L Total Bilirubin 0.5 AST 18 ALT 48 Alkaline Phosphatase 60 Total Protein 4.8 L Albumin 2.5 L 04/05/16 04/05/16 08:41 08:41 Creatine Kinase 98 CK-MB (CK-2) 1.69 Troponin I < 0.012 Impressions: Abdomen/Pelvis CT 04/04/16 00:00 IMPRESSION: 1. QUESTIONABLE FAINT INFLAMMATION ADJACENT TO THE GALLBLADDER, POSSIBLE CHOLECYSTITIS. NO DEFINITE CALCIFIED STONES IDENTIFIED, ALTHOUGH CT CAN HAVE A LOW SENSITIVITY FOR SMALL CALCULI. 2. FATTY LESION IN THE RIGHT ADRENAL GLAND, POSSIBLE ADENOMA OR MYELOLIPOMA. 3. SMALL CORTICAL CYSTS IN THE LEFT KIDNEY. 4. NO OTHER SIGNIFICANT FINDING. Acute Abdomen Series 04/04/16 16:45 IMPRESSION: NO RADIOGRAPHIC EVIDENCE FOR ACUTE ABDOMINAL DISEASE. Abdomen Ultrasound 04/05/16 00:28 IMPRESSION: SLUDGE IN THE GALLBLADDER. MILD GALLBLADDER WALL THICKENING AND TRACE PERICHOLECYSTIC FLUID. POSSIBLE CHOLECYSTITIS. Assessment & Plan - Plan Summary Plan Summary: doing better Ambulate My DC home tomorrow.
--- NOTE | 2016-04-07 14:59 | PDOC PROGRESS REPORT ---
Subjective Progress Note for:: 04/07/16 Subjective:: Patient status post cholecystectomy. Patient now alert and oriented 3. Today he is feeling better. Also he was noted to have converted to sinus rhythm and has since then been maintaining sinus rhythm. Patient denying any chest pain or shortness of breath. Physical Exam Vital Signs: Temp Pulse Resp BP Pulse Ox 98.5 F 83 20 137/60 H 96 04/07/16 12:45 04/07/16 12:45 04/07/16 12:45 04/07/16 12:45 04/07/16 12:45 Intake & Output 04/06/16 04/07/16 04/08/16 06:59 06:59 06:59 Intake Total 6426 1582 222 Output Total 2450 910 Balance 3976 672 222 Weight 137.1 kg Exam: GENERAL: well-nourished and in no acute distress. Alert and oriented x3 HEAD: Atraumatic, normocephalic. EYES: Pupils equal round and reactive to light, extraocular movements intact, sclera anicteric, conjunctiva are normal. ENT: TMs normal, nares patent, oropharynx clear without exudates. Moist mucous membranes. No oral ulcerations or bleeding gums noted NECK: supple without lymphadenopathy. Trachea is central. No cervical or axillary lymphadenopathy noted. Carotids are 2+, JVD WNL LUNGS: Respiration seems nonlabored, no significant accessory muscle action noted. Breath sounds clear to auscultation bilaterally and equal noted. No wheezes rales or rhonchi noted. No significant dullness noted on percussion. CHEST: Palpation of the chest wall shows no significant chest wall tenderness. No other significant abnormalities noted. 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 ABDOMEN: Soft, minimal right upper quadrant tenderness appreciated, normoactive bowel sounds. No guarding, no rebound. No rigidity noted . No masses appreciated. EXTREMITIES: Pedal pulses are 1-2+, no calf tenderness noted. No clubbing or cyanosis.trace to 1+ pedal edema noted NEUROLOGICAL: Focused neurological exam showed no significant neurologic deficit. Normal speech, no focal weakness appreciated. PSYCH: Normal mood, normal affect. Judgment and insight within normal limits. SKIN: No significant ecchymosis, rash, ulcerations or signs of pruritus noted. MUSCULOSKELETAL EXAM: No significant joint swelling noted. Results Laboratory Results: 04/07/16 03:50 04/07/16 03:50 04/07/16 04/07/16 03:50 03:50 WBC 11.6 H RBC 4.15 L Hgb 12.9 L Hct 36.7 L MCV 89 MCH 31.0 MCHC 35.1 RDW 13.0 Plt Count 224 Sodium 137.8 Potassium 3.6 Chloride 107 Carbon Dioxide 22 Anion Gap 9 BUN 18 Creatinine 0.79 Est GFR ( Amer) > 60 Est GFR (Non-Af Amer) > 60 Glucose 89 Calcium 8.3 L Total Bilirubin 0.5 AST 18 ALT 48 Alkaline Phosphatase 60 Total Protein 4.8 L Albumin 2.5 L 04/05/16 04/05/16 08:41 08:41 Creatine Kinase 98 CK-MB (CK-2) 1.69 Troponin I < 0.012 Impressions: Abdomen/Pelvis CT 04/04/16 00:00 IMPRESSION: 1. QUESTIONABLE FAINT INFLAMMATION ADJACENT TO THE GALLBLADDER, POSSIBLE CHOLECYSTITIS. NO DEFINITE CALCIFIED STONES IDENTIFIED, ALTHOUGH CT CAN HAVE A LOW SENSITIVITY FOR SMALL CALCULI. 2. FATTY LESION IN THE RIGHT ADRENAL GLAND, POSSIBLE ADENOMA OR MYELOLIPOMA. 3. SMALL CORTICAL CYSTS IN THE LEFT KIDNEY. 4. NO OTHER SIGNIFICANT FINDING. Acute Abdomen Series 04/04/16 16:45 IMPRESSION: NO RADIOGRAPHIC EVIDENCE FOR ACUTE ABDOMINAL DISEASE. Abdomen Ultrasound 04/05/16 00:28 IMPRESSION: SLUDGE IN THE GALLBLADDER. MILD GALLBLADDER WALL THICKENING AND TRACE PERICHOLECYSTIC FLUID. POSSIBLE CHOLECYSTITIS. Assessment & Plan - Diagnosis (1) Atrial fibrillation with rapid ventricular response Is this a current diagnosis for this admission?: Yes (2) Cholecystitis Is this a current diagnosis for this admission?: Yes (3) Preop cardiovascular exam Is this a current diagnosis for this admission?: Yes (4) Obesity Is this a current diagnosis for this admission?: Yes (5) Abnormal echocardiogram Is this a current diagnosis for this admission?: Yes (6) Sleep disorder breathing Is this a current diagnosis for this admission?: Yes - Notes Notes: Atrial fibrillation, now paroxysmal: Recommend rate control. Chronic anti- coagulation resumed. Have advised patient to undergo a sleep study as treatment of sleep apnea may help maintain sinus rhythm. Acute cholecystitis: Patient is status post surgery. Patient has done well. Preop cardiovascular examination: Patient did well with surgery. Currently postoperative second day. Obesity: Patient will benefit from weight loss but this could be arranged as an outpatient. Right ventricular enlargement: Patient may have underlying sleep apnea syndrome. This could be evaluated as an outpatient. Sleep disordered breathing: This is strongly suspected based on patient's significant obesity, atrial fibrillation, oropharyngeal exam and body habitus. Discussed that he might consider a sleep study as an outpatient since he is in relatively otherwise good health. Discussed overall prognosis with the patient and his son. - Time Time with patient: 15-25 minutes - CODE STATUS was discussed, patient remains full code. Surrogate decision-maker unchanged. Multiple medical problems were addressed.More than 50% of the time spent coordinating care, discussing management plans with involved caregivers. Management plans discussed with involved personnels. Medical decision making was of moderate complexity.
[2016-04-07] MEDS: OXYCODONE-ACETAMINOPHEN 5-325 MG TABLET PO PRN (22:12)
[2016-04-08] MEDS: PIPERACILLIN SODIUM/TAZOBACTAM 3.375 GM in NORMAL SALINE 100 ML IV SCH ×3 (00:21→13:18)
[2016-04-08 06:03] LABS: HEMATOCRIT 37.9 % (37.9-51.0); HEMOGLOBIN 13.1 g/dL (13.5-17.0); HGB HCT DIFFERENCE 1.4; MEAN CORPUSCULAR HEMOGLOBIN 30.9 pg (27.0-33.4); MEAN CORPUSCULAR HGB CONC 34.5 g/dL (32.0-36.0); MEAN CORPUSCULAR VOLUME 90 fl (80-97); RED BLOOD COUNT 4.23 10^6/uL (4.35-5.55); RED CELL DISTRIBUTION WIDTH 13.1 % (11.5-14.0)
[2016-04-08] MEDS: METRONIDAZOLE 500 MG/NS RTU 100 ML IV SCH ×2 (06:14→13:17)
[2016-04-08 06:18] LABS: APPEARANCE,URINE CLEAR; BILIRUBIN,URINE NEGATIVE (NEGATIVE); GLUCOSE, URINE NEGATIVE (NEGATIVE); KETONES,URINE NEGATIVE (NEGATIVE); LEUKOCYTE ESTERASE,URINE NEGATIVE (NEGATIVE); NITRITE,URINE NEGATIVE (NEGATIVE); PROTEIN,URINE NEGATIVE (NEGATIVE); URINE SPECIFIC GRAVITY 1.014; UROBILINOGEN,URINE NEGATIVE mg/dL (<2.0)
[2016-04-08] MEDS: TAMSULOSIN HCL 0.4 MG CAP.SR.24H PO SCH (09:04)
[2016-04-08] MEDS: APIXABAN 5 MG TABLET PO SCH ×2 (09:04→17:18)
[2016-04-08] MEDS: METOPROLOL SUCCINATE 25 MG TAB.SR.24H PO SCH (09:05)
--- NOTE | 2016-04-08 09:50 | OPERATIVE REPORT E ---
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 POSTOPERATIVE DIAGNOSES: Acute gangrenous cholecystitis with subhepatic pericholecystic abscess with history of atrial fibrillation. OPERATION: 1. Laparoscopic cholecystectomy. 2. Laparoscopic draining of the subhepatic abscess along with peritoneal washout. SURGEON: CAREN NGUYEN M.D. ANESTHESIA: General. BLOOD LOSS: Less than 30 mL. SPECIMENS: Gallbladder with contents. HISTORY AND INDICATIONS: Patient came to the emergency room with worsening pain for the past 2 weeks. On admittance examination, he had acute, tender abdomen and basically known cardiac arrhythmia with history of ablation. Because of tenderness, gallbladder gangrenous, intervention. DESCRIPTION OF OPERATION: After induction of general anesthesia and placement of SCD boots, abdomen was cleaned and draped in a sterile field. He was given an antibiotic dosing. Initial access 5 mm trocar and then he had to have 3 other 5 mm trocars, one in the epigastrium and two in the right upper quadrant trinity. Findings, gallbladder was omentum and gallbladder. After separation of the gallbladder, the rest of the findings revealed pericholecystic, perihepatic abscess with copious amount of fluid, greenish purulent fluid, probably leaking ruptured gallbladder which all this fluid was drained out. The area was irrigated copiously. After the gallbladder was reviewed again, revealed gangrenous gallbladder. It was dissected carefully at the gallbladder neck and then gallbladder was dissected out from down to gallbladder neck area. At the gallbladder neck, cystic duct, common bile duct area extremely erythematous and inflamed. For this reason, no further dissection was attempted at this point. The gallbladder neck area was securely ligated with 2 applications of Endoloop which is Vicryl Endoloop and then gallbladder was divided right on top of the gallbladder neck to stay away from the common bile duct area. Because of extension there and any further dissection would lead only to trauma or bile duct injury. For that reason, stayed well away from the common bile duct area and gallbladder neck area was securely ligated with 2 application of Endoloop Vicryl and then gallbladder neck was divided sharply and the specimen was returned to the EndoCatch bag. After that, abdominal cavity, , pericolic gutters were copiously irrigated with warm saline until effluent was very clear. Then gallbladder bed was examined and no leaks. No bleeding. No bile leaks. After that confirmation, EBONI drain was placed in the subhepatic gallbladder area prior to the final trocar in the right upper area. Closed with 0 Vicryl for fascia, for the skin. The patient was stable throughout the procedure recommendation We will put him in ICU because of his cardiac problem in the past. DICTATING PHYSICIAN: CAREN NGUYEN M.D. [id number] PHY#: [id number] ID: [id number] JOB#: [id number] ACCT: [id number] cc:CAREN NGUYEN M.D. >
--- NOTE | 2016-04-08 15:01 | PDOC PROGRESS REPORT ---
Subjective Progress Note for:: 04/08/16 Subjective:: Reason for visit: Follow-up acute cholecystitis in atrial fibrillation with RVR. 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 Nothing in particular made the pain worse, just simply gradually increased with time. Patient states he's felt so bad over the last several days that he basically has taken no medication whatsoever, including his Eliquis, along with other medications. No prior such episodes of pain. No specific fatty food intolerance. No previous known gallbladder problems. No dysuria, and only one episode of diarrhea. No fever or chills. No history of peptic ulcer disease. Patient has been discussed with emergency room nurse practitioner who evaluated the patient. Prior to my being contacted, the nurse practitioner did discuss the patient more than once with the on-call surgicalist. Request made to admit to hospitalist service with surgery consult, due to multiple ongoing significant problems.. Patient was noted to be in atrial fibrillation with rapid ventricular response and was started on Cardizem drip by the emergency room staff. When it was realized that patient had been off Eliquis for a number of days, he was also started on heparin drip, also by the emergency room staff." Patient was admitted and given broad-spectrum antibiotics, continued on a Cardizem drip, he was seen by general surgery, heparin drip was held and he was taken to the OR for laparoscopic cholecystectomy which he seemed to tolerate without difficulty. He suffered some postoperative confusion requiring soft wrist restraints which was entirely out of character according to the family gathered at the bedside. This seems to have cleared such that he is back to baseline per family. Subjective: He reports that he is too weak to go home, he walks several feet with physical therapy but by the time he got back to the bed he felt like his legs were going to get out and he was breathless and a bit nauseous. He denies chest pain, palpitations, fevers or chills. He converted to normal sinus rhythm and remains in for the last 48 hours or so. ROS: per HPI plus a total of 10 systems reviewed, pertinent positives and negatives noted above, remaining systems negative. Physical Exam Vital Signs: Temp Pulse Resp BP Pulse Ox 98.2 F 75 20 145/66 H 97 04/08/16 12:39 04/08/16 14:00 04/08/16 12:39 04/08/16 12:39 04/08/16 12:39 Intake & Output 04/07/16 04/08/16 04/09/16 06:59 06:59 06:59 Intake Total 1582 1630 525 Output Total 910 500 475 Balance 672 1130 50 Weight 136.5 kg EXAM GENERAL: NAD; well developed, well nourished; morbid obese; alert and oriented to person place and situation HEENT: normocephalic, atraumatic; no conjunctival injection, no scleral icterus ; oral mucosa moist; RESPIRATORY: no accessory muscle use, no increased WOB, good air entry bilaterally; no wheezes, rales, rhonchi; no inspiratory crackles CARDIO: no JVD; RRR, seems to be in sinus rhythm at the bedside; soft holo- systolic murmur as before; no tachycardia GI: soft; rotund; diminished bowel sounds; mild and improved mostly right upper quadrant tenderness; surgical wounds clean dry and intact VASCULAR: no pallor; 2+ radial, DP pulse; normal capillary refill EXTREMITIES: no calf tender; no palpable cords in calf; no clubbing, cyanosis , pedal edema PSYCH: Normal mood, normal affect SKIN: warm; moist; no petechiae; no telengectasias; no jaundice; no rash Results Laboratory Results: 04/08/16 05:34 04/07/16 03:50 04/08/16 04/08/16 04/08/16 05:20 05:34 10:50 WBC 7.0 RBC 4.23 L Hgb 13.1 L Hct 37.9 MCV 90 MCH 30.9 MCHC 34.5 RDW 13.1 Plt Count 219 Urine Color YELLOW Urine Appearance CLEAR Urine pH 6.0 Ur Specific [place] 1.014 Urine Protein NEGATIVE Urine Glucose (UA) NEGATIVE Urine Ketones NEGATIVE Urine Blood NEGATIVE Urine Nitrite NEGATIVE Ur Leukocyte Esterase NEGATIVE Urine WBC (Auto) 2 Urine RBC (Auto) 1 Stool Occult Blood POSITIVE 04/05/16 04/05/16 08:41 08:41 Creatine Kinase 98 CK-MB (CK-2) 1.69 Troponin I < 0.012 Assessment & Plan - Diagnosis (1) Cholecystitis Is this a current diagnosis for this admission?: YesPlan: Gangrenous gallbladder removed, Status post laparoscopic cholecystectomy; changed to oral Augmentin. Tolerating Advancement in diet to regular. (2) Sepsis Is this a current diagnosis for this admission?: YesPlan: Resolved. Evidenced by leukocytosis, tachycardia presentation and unknown source. Continue treatment as noted above. (3) Acute metabolic encephalopathy Is this a current diagnosis for this admission?: YesPlan: Transient and resolved. Likely secondary to the above. (4) Atrial fibrillation with rapid ventricular response Is this a current diagnosis for this admission?: YesPlan: Resolved. Rapid ventricular response likely secondary to the sepsis. Paroxysmal in nature as he has now converted to normal sinus rhythm, changed to oral Toprol-XL for rate control and resumed home eliquis. (5) Obesity Is this a current diagnosis for this admission?: Yes - Time Time Spent with patient: 35 or more minutes Anticipated discharge: Home with Homehealth, Acute Rehab Within: within 24 hours
--- NOTE | 2016-04-08 20:32 | PDOC PROGRESS REPORT ---
Subjective Progress Note for:: 04/08/16 Subjective:: Patient status post cholecystectomy. Patient has not had any episodes of atrial flutter fibrillation.. Today he is feeling better. Also he was noted to have converted to sinus rhythm earlier this admission and has since then been maintaining sinus rhythm. Patient denying any chest pain or shortness of breath. Physical Exam Vital Signs: Temp Pulse Resp BP Pulse Ox 98.4 F 71 18 138/62 H 94 04/08/16 16:23 04/08/16 16:23 04/08/16 16:23 04/08/16 16:23 04/08/16 16:23 Intake & Output 04/07/16 04/08/16 04/09/16 06:59 06:59 06:59 Intake Total 1582 1630 954 Output Total 910 500 475 Balance 672 1130 479 Weight 136.5 kg Exam: GENERAL: well-nourished and in no acute distress. Alert and oriented x3 HEAD: Atraumatic, normocephalic. EYES: Pupils equal round and reactive to light, extraocular movements intact, sclera anicteric, conjunctiva are normal. ENT: TMs normal, nares patent, oropharynx clear without exudates. Moist mucous membranes. No oral ulcerations or bleeding gums noted NECK: supple without lymphadenopathy. Trachea is central. No cervical or axillary lymphadenopathy noted. Carotids are 2+, JVD WNL LUNGS: Respiration seems nonlabored, no significant accessory muscle action noted. Breath sounds clear to auscultation bilaterally and equal noted. No wheezes rales or rhonchi noted. No significant dullness noted on percussion. CHEST: Palpation of the chest wall shows no significant chest wall tenderness. No other significant abnormalities noted. 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 ABDOMEN: Soft, no significant tenderness appreciated, normoactive bowel sounds. No guarding, no rebound. No rigidity noted . No masses appreciated. EXTREMITIES: Pedal pulses are 1-2+, no calf tenderness noted. No clubbing or cyanosis.trace to 1+ pedal edema noted NEUROLOGICAL: Focused neurological exam showed no significant neurologic deficit. Normal speech, no focal weakness appreciated. PSYCH: Normal mood, normal affect. Judgment and insight within normal limits. SKIN: No significant ecchymosis, rash, ulcerations or signs of pruritus noted. MUSCULOSKELETAL EXAM: No significant joint swelling noted. Results Laboratory Results: 04/08/16 05:34 04/07/16 03:50 04/08/16 04/08/16 04/08/16 05:20 05:34 10:50 WBC 7.0 RBC 4.23 L Hgb 13.1 L Hct 37.9 MCV 90 MCH 30.9 MCHC 34.5 RDW 13.1 Plt Count 219 Urine Color YELLOW Urine Appearance CLEAR Urine pH 6.0 Ur Specific [place] 1.014 Urine Protein NEGATIVE Urine Glucose (UA) NEGATIVE Urine Ketones NEGATIVE Urine Blood NEGATIVE Urine Nitrite NEGATIVE Ur Leukocyte Esterase NEGATIVE Urine WBC (Auto) 2 Urine RBC (Auto) 1 Stool Occult Blood POSITIVE 04/05/16 04/05/16 08:41 08:41 Creatine Kinase 98 CK-MB (CK-2) 1.69 Troponin I < 0.012 Impressions: Abdomen/Pelvis CT 04/04/16 00:00 IMPRESSION: 1. QUESTIONABLE FAINT INFLAMMATION ADJACENT TO THE GALLBLADDER, POSSIBLE CHOLECYSTITIS. NO DEFINITE CALCIFIED STONES IDENTIFIED, ALTHOUGH CT CAN HAVE A LOW SENSITIVITY FOR SMALL CALCULI. 2. FATTY LESION IN THE RIGHT ADRENAL GLAND, POSSIBLE ADENOMA OR MYELOLIPOMA. 3. SMALL CORTICAL CYSTS IN THE LEFT KIDNEY. 4. NO OTHER SIGNIFICANT FINDING. Acute Abdomen Series 04/04/16 16:45 IMPRESSION: NO RADIOGRAPHIC EVIDENCE FOR ACUTE ABDOMINAL DISEASE. Abdomen Ultrasound 04/05/16 00:28 IMPRESSION: SLUDGE IN THE GALLBLADDER. MILD GALLBLADDER WALL THICKENING AND TRACE PERICHOLECYSTIC FLUID. POSSIBLE CHOLECYSTITIS. Assessment & Plan - Diagnosis (1) Atrial fibrillation with rapid ventricular response Is this a current diagnosis for this admission?: Yes (2) Cholecystitis Is this a current diagnosis for this admission?: Yes (3) Preop cardiovascular exam Is this a current diagnosis for this admission?: Yes (4) Obesity Is this a current diagnosis for this admission?: Yes (5) Abnormal echocardiogram Is this a current diagnosis for this admission?: Yes (6) Sleep disorder breathing Is this a current diagnosis for this admission?: Yes - Notes Notes: Atrial fibrillation, now paroxysmal: Recommend rate control. Chronic anti- coagulation resumed. Have advised patient to undergo a sleep study as treatment of sleep apnea may help maintain sinus rhythm. Acute cholecystitis: Patient is status post surgery. Patient has done well. Patient is SPECT taking discharge today. Preop cardiovascular examination: Patient did well with surgery. Will sign off. Obesity: Patient will benefit from weight loss but this could be arranged as an outpatient. Right ventricular enlargement: Patient may have underlying sleep apnea syndrome. This could be evaluated as an outpatient. Sleep disordered breathing: This is strongly suspected based on patient's significant obesity, atrial fibrillation, oropharyngeal exam and body habitus. Discussed that he might consider a sleep study as an outpatient since he is in relatively otherwise good health. Discussed overall prognosis with the patient and his son. Will sign off. Patient has been stable cardiac-bird for several days. - Time Time with patient: 15-25 minutes - CODE STATUS was discussed, patient remains full code. Surrogate decision-maker unchanged. Multiple medical problems were addressed.More than 50% of the time spent coordinating care, discussing management plans with involved caregivers. Management plans discussed with involved personnels. Medical decision making was of moderate complexity.
[2016-04-08] MEDS: OXYCODONE-ACETAMINOPHEN 5-325 MG TABLET PO PRN (21:22)
[2016-04-08] MEDS: AMOXICILLIN TR/POT CLAVULANATE 500-125 MG TAB PO SCH (21:23)
[2016-04-09 05:19] LABS: HEMATOCRIT 37.7 % (37.9-51.0); HEMOGLOBIN 13.3 g/dL (13.5-17.0); HGB HCT DIFFERENCE 2.2; MEAN CORPUSCULAR HEMOGLOBIN 31.1 pg (27.0-33.4); MEAN CORPUSCULAR HGB CONC 35.4 g/dL (32.0-36.0); MEAN CORPUSCULAR VOLUME 88 fl (80-97); RED BLOOD COUNT 4.28 10^6/uL (4.35-5.55); RED CELL DISTRIBUTION WIDTH 12.7 % (11.5-14.0); WHITE BLOOD COUNT 7.7 10^3/uL (4.0-10.5)
[2016-04-09 05:41] LABS: ALANINE AMINOTRANSFERASE 55 U/L (21-72); ALBUMIN 2.5 g/dL (3.5-5.0); ALKALINE PHOSPHATASE 65 U/L (38-126); ANION GAP 9 (5-19); ASPARTATE AMINO TRANSFERASE 40 U/L (17-59); BILIRUBIN,TOTAL 0.3 mg/dL (0.2-1.3); BLOOD UREA NITROGEN 14 mg/dL (7-20); CALCIUM 8.2 mg/dL (8.4-10.2); CARBON DIOXIDE 24 mmol/L (22-30); CHLORIDE 106 mmol/L (98-107); CREATININE RESULT 0.72 mg/dL (0.52-1.25); GLUCOSE 86 mg/dL (75-110); POTASSIUM 3.9 mmol/L (3.6-5.0); SODIUM 139.4 mmol/L (137-145); TOTAL PROTEIN 4.5 g/dL (6.3-8.2)
[2016-04-09] MEDS: AMOXICILLIN TR/POT CLAVULANATE 500-125 MG TAB PO SCH ×3 (05:42→22:55)
--- NOTE | 2016-04-09 08:03 | PDOC PROGRESS REPORT ---
Subjective Progress Note for:: 04/09/16 Subjective:: Late note. Rounding for 04/08/2016. Tolerating diet. No nausea or vomiting. Passing flatus. Still unsteady on feet. Limited ambulation. Physical Exam Vital Signs: Temp Pulse Resp BP Pulse Ox 98.5 F 61 20 139/56 H 95 04/09/16 04:27 04/09/16 06:32 04/09/16 04:27 04/09/16 04:27 04/09/16 04:27 Intake & Output 04/08/16 04/09/16 04/10/16 06:59 06:59 06:59 Intake Total 1630 1304 Output Total 500 925 Balance 1130 379 Weight 136.5 kg 139.2 kg General appearance: PRESENT: no acute distress Head exam: PRESENT: normocephalic GI/Abdominal exam: PRESENT: soft, other - Incisions healing nicely. ABSENT: distended, tenderness Neurological exam: PRESENT: alert, oriented to situation Results Laboratory Results: 04/09/16 04:25 04/09/16 04:25 04/08/16 04/09/16 04/09/16 10:50 04:25 04:25 WBC 7.7 RBC 4.28 L Hgb 13.3 L Hct 37.7 L MCV 88 MCH 31.1 MCHC 35.4 RDW 12.7 Plt Count 245 Sodium 139.4 Potassium 3.9 Chloride 106 Carbon Dioxide 24 Anion Gap 9 BUN 14 Creatinine 0.72 Est GFR ( Amer) > 60 Est GFR (Non-Af Amer) > 60 Glucose 86 Calcium 8.2 L Total Bilirubin 0.3 AST 40 ALT 55 Alkaline Phosphatase 65 Total Protein 4.5 L Albumin 2.5 L Stool Occult Blood POSITIVE 04/05/16 04/05/16 08:41 08:41 Creatine Kinase 98 CK-MB (CK-2) 1.69 Troponin I < 0.012 Impressions: Abdomen/Pelvis CT 04/04/16 00:00 IMPRESSION: 1. QUESTIONABLE FAINT INFLAMMATION ADJACENT TO THE GALLBLADDER, POSSIBLE CHOLECYSTITIS. NO DEFINITE CALCIFIED STONES IDENTIFIED, ALTHOUGH CT CAN HAVE A LOW SENSITIVITY FOR SMALL CALCULI. 2. FATTY LESION IN THE RIGHT ADRENAL GLAND, POSSIBLE ADENOMA OR MYELOLIPOMA. 3. SMALL CORTICAL CYSTS IN THE LEFT KIDNEY. 4. NO OTHER SIGNIFICANT FINDING. Acute Abdomen Series 04/04/16 16:45 IMPRESSION: NO RADIOGRAPHIC EVIDENCE FOR ACUTE ABDOMINAL DISEASE. Abdomen Ultrasound 04/05/16 00:28 IMPRESSION: SLUDGE IN THE GALLBLADDER. MILD GALLBLADDER WALL THICKENING AND TRACE PERICHOLECYSTIC FLUID. POSSIBLE CHOLECYSTITIS. Assessment & Plan - Diagnosis (1) Acute gangrenous cholecystitis Is this a current diagnosis for this admission?: YesPlan: Late note. Rounding for 04/08/2016. Doing well from a surgery perspective. Discontinue IV antibiotics at time of discharge. Discontinue EBONI drain at time of discharge. May need to be discharged to rehabilitation versus to home, will defer to medicine.
[2016-04-09] MEDS: TAMSULOSIN HCL 0.4 MG CAP.SR.24H PO SCH (09:03)
[2016-04-09] MEDS: APIXABAN 5 MG TABLET PO SCH ×2 (09:03→17:04)
[2016-04-09] MEDS: METOPROLOL SUCCINATE 25 MG TAB.SR.24H PO SCH (09:03)
--- NOTE | 2016-04-09 11:38 | PROGRESS NOTE E ---
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 He is doing quite well, and from surgical standpoint, seems ready for discharge. He is up and ambulatory. His surgical wounds are clean and healing well. He is tolerating a regular diet and having bowel movements. PLAN: I spoke with his hospitalist and arrangements are being made for discharge. From the standpoint of Surgery, his Ubaldo-Baker drain has been removed. He is tolerating a regular diet. His wounds are clear. His abdomen is soft and nontender, and he should be ready for discharge with followup with the Surgery Service in approximately 1 week. DICTATING PHYSICIAN: ARSH RUTHERFORD M.D. [id number] PHY#: [id number] ID: [id number] JOB#: [id number] ACCT: [id number] cc: >
--- NOTE | 2016-04-09 11:41 | PDOC DISCHARGE SUMMARY ---
General - Admit/Disc Date/PCP Admission Date/Primary Care Provider: 04/05/16 07:33 RACHEL BRUCE MD Discharge Date: 04/09/16 - Discharge Diagnosis (1) BETHANY (obstructive sleep apnea) Is this a current diagnosis for this admission?: YesSummary: Patient likely has obstructive sleep apnea and obesity hypoventilation syndrome An echocardiogram showed dilated right ventricle Patient should follow up with Dr. Tejeda for sleep studies (2) Acute gangrenous cholecystitis Is this a current diagnosis for this admission?: YesSummary: Patient was admitted with sepsis and acute cholecystitis he underwent surgery on 04/05/2016 surgery was uncomplicated Patient was discharged on 5 days of Augmentin by mouth He is to follow-up with Dr. Morrow as an outpatient (3) Acute metabolic encephalopathy Is this a current diagnosis for this admission?: YesSummary: Secondary to sepsis has resolved (4) Atrial fibrillation with rapid ventricular response Is this a current diagnosis for this admission?: YesSummary: Chronic atrial fibrillation patient was chronically anticoagulated prior to his admission He is to continue Eliquis and Toprol-XL (5) Anticoagulated Is this a current diagnosis for this admission?: YesSummary: Continue Eliquis - Additional Information Resuscitation Status: Full Code Discharge Diet: Cardiac Discharge Activity: Activity As Tolerated Home Medications: Apixaban [Eliquis 5 mg Tablet] 5 mg PO BID 04/05/16 Esomeprazole Magnesium [Nexium] 40 mg PO DAILY 04/05/16 Acidoph/L.bulg/Bif.b/S.thermop [Bacid Caplet] 1 each PO BID #20 tablet 04/09/16 Amox Tr/Potassium Clavulanate [Augmentin "500" Tablet] 1 tab PO Q8 #15 tablet 04/09/16 Furosemide [Lasix] 20 mg PO QAM #0 04/09/16 Metoprolol Succinate [Toprol Xl 25 mg Tab.sr] 25 mg PO DAILY #30 tab.sr.24h Tamsulosin HCl [Flomax 0.4 mg Cap.sr] 0.4 mg PO DAILY #30 cap.sr.24h 04/09/16 History of Present Illness Patient complains of: abdominal pain History of Present Illness: 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 Nothing in particular made the pain worse, just simply gradually increased with time. Patient states he's felt so bad over the last several days that he basically has taken no medication whatsoever, including his Eliquis, along with other medications. No prior such episodes of pain. No specific fatty food intolerance. No previous known gallbladder problems. No dysuria, and only one episode of diarrhea. No fever or chills. No history of peptic ulcer disease. Patient has been discussed with emergency room nurse practitioner who evaluated the patient. Prior to my being contacted, the nurse practitioner did discuss the patient more than once with the on-call surgicalist. Request made to admit to hospitalist service with surgery consult, due to multiple ongoing significant problems.. Patient was noted to be in atrial fibrillation with rapid ventricular response and was started on Cardizem drip by the emergency room staff. When it was realized that patient had been off Eliquis for a number of days, he was also started on heparin drip, also by the emergency room staff Hospital Course Hospital Course: See above Physical Exam Vital Signs: Temp Pulse Resp BP Pulse Ox 99.0 F 64 20 141/60 H 97 04/09/16 08:00 04/09/16 10:00 04/09/16 08:00 04/09/16 08:00 04/09/16 08:00 Intake & Output 04/08/16 04/09/16 04/10/16 00:59 00:59 00:59 Intake Total 1982 1661 123 Output Total 500 1175 Balance 1482 486 123 Weight 136.5 kg 139.2 kg General appearance: PRESENT: no acute distress, well-developed, well-nourished Head exam: PRESENT: atraumatic, normocephalic Eye exam: PRESENT: conjunctiva pink, EOMI, PERRLA. ABSENT: scleral icterus Ear exam: PRESENT: normal external ear exam Mouth exam: PRESENT: moist, tongue midline Neck exam: ABSENT: carotid bruit, JVD, lymphadenopathy, thyromegaly Respiratory exam: PRESENT: clear to auscultation genny. ABSENT: rales, rhonchi, wheezes Cardiovascular exam: PRESENT: RRR. ABSENT: diastolic murmur, rubs, systolic murmur Pulses: PRESENT: normal dorsalis pedis pul Vascular exam: PRESENT: normal capillary refill GI/Abdominal exam: PRESENT: normal bowel sounds, soft. ABSENT: distended, guarding, mass, organolmegaly, rebound, tenderness Rectal exam: PRESENT: deferred Extremities exam: PRESENT: full ROM. ABSENT: calf tenderness, clubbing, pedal edema Neurological exam: PRESENT: alert, awake, oriented to person, oriented to place , oriented to time, oriented to situation, CN II-XII grossly intact. ABSENT: motor sensory deficit Psychiatric exam: PRESENT: appropriate affect, normal mood. ABSENT: homicidal ideation, suicidal ideation Skin exam: PRESENT: dry, intact, warm. ABSENT: cyanosis, rash Results Laboratory Results: 04/09/16 04:25 04/09/16 04:25 04/08/16 04/09/16 04/09/16 10:50 04:25 04:25 WBC 7.7 RBC 4.28 L Hgb 13.3 L Hct 37.7 L MCV 88 MCH 31.1 MCHC 35.4 RDW 12.7 Plt Count 245 Sodium 139.4 Potassium 3.9 Chloride 106 Carbon Dioxide 24 Anion Gap 9 BUN 14 Creatinine 0.72 Est GFR ( Amer) > 60 Est GFR (Non-Af Amer) > 60 Glucose 86 Calcium 8.2 L Total Bilirubin 0.3 AST 40 ALT 55 Alkaline Phosphatase 65 Total Protein 4.5 L Albumin 2.5 L Stool Occult Blood POSITIVE 04/05/16 04/05/16 08:41 08:41 Creatine Kinase 98 CK-MB (CK-2) 1.69 Troponin I < 0.012 Impressions: Abdomen/Pelvis CT 04/04/16 00:00 IMPRESSION: 1. QUESTIONABLE FAINT INFLAMMATION ADJACENT TO THE GALLBLADDER, POSSIBLE CHOLECYSTITIS. NO DEFINITE CALCIFIED STONES IDENTIFIED, ALTHOUGH CT CAN HAVE A LOW SENSITIVITY FOR SMALL CALCULI. 2. FATTY LESION IN THE RIGHT ADRENAL GLAND, POSSIBLE ADENOMA OR MYELOLIPOMA. 3. SMALL CORTICAL CYSTS IN THE LEFT KIDNEY. 4. NO OTHER SIGNIFICANT FINDING. Acute Abdomen Series 04/04/16 16:45 IMPRESSION: NO RADIOGRAPHIC EVIDENCE FOR ACUTE ABDOMINAL DISEASE. Abdomen Ultrasound 04/05/16 00:28 IMPRESSION: SLUDGE IN THE GALLBLADDER. MILD GALLBLADDER WALL THICKENING AND TRACE PERICHOLECYSTIC FLUID. POSSIBLE CHOLECYSTITIS. Plan Discharge Plan: Patient will be discharged home with outpatient physical therapy Follow-up with his primary care physician and surgical attending
--- NOTE | 2016-04-09 14:35 | Progress Note ---
Provider Note Provider Note: Patient at this time wishes to be discharged to short-term rehabilitation patient lives alone; process planner is sending referrals to local longterm facilities
[2016-04-09] MEDS: OXYCODONE-ACETAMINOPHEN 5-325 MG TABLET PO PRN (22:55)
[2016-04-10] MEDS: AMOXICILLIN TR/POT CLAVULANATE 500-125 MG TAB PO SCH ×2 (05:31→14:41)
[2016-04-10 06:44] LABS: HEMATOCRIT 39.9 % (37.9-51.0); HEMOGLOBIN 13.9 g/dL (13.5-17.0); HGB HCT DIFFERENCE 1.8; MEAN CORPUSCULAR HGB CONC 34.9 g/dL (32.0-36.0); MEAN CORPUSCULAR VOLUME 89 fl (80-97); RED CELL DISTRIBUTION WIDTH 12.9 % (11.5-14.0); WHITE BLOOD COUNT 7.8 10^3/uL (4.0-10.5)
[2016-04-10] MEDS: APIXABAN 5 MG TABLET PO SCH (09:08)
[2016-04-10] MEDS: TAMSULOSIN HCL 0.4 MG CAP.SR.24H PO SCH (09:08)
[2016-04-10] MEDS: METOPROLOL SUCCINATE 25 MG TAB.SR.24H PO SCH (09:09)
--- NOTE | 2016-04-10 10:37 | Progress Note ---
Provider Note Provider Note: 04/10/16 Patient is transferred to short-term rehabilitation Please see transfer note dictated yesterday There is no change in clinical status
[2016-04-10 12:11] VITALS: BP 137/59
== END 2016-04-10 15:55 | DRG 417 ==
LOC: ER 16:39 → EH 04-05 04:39 → UNDOADMIN 04-05 04:39 → EH 04-05 07:33 → 3S 04-05 13:43
PROVIDERS: ADMIT Family Medicine; ATTEND Family Medicine
PROC: 0W9F0ZZ Drainage of Abdominal Wall, Open Approach (ICD-10-PCS; 2016-04-05)
PROC: 0FT44ZZ Resection of Gallbladder, Percutaneous Endoscopic Approach (ICD-10-PCS; principal; 2016-04-05 10:00)
DX: K81.0 Acute cholecystitis (principal); G93.41 Metabolic encephalopathy; E66.2 Morbid (severe) obesity with alveolar hypoventilation; Z68.42 Body mass index [BMI] 45.0-49.9, adult; Q61.02 Congenital multiple renal cysts; I48.2 Chronic atrial fibrillation; I48.91 Unspecified atrial fibrillation; M19.90 Unspecified osteoarthritis, unspecified site; K21.9 Gastro-esophageal reflux disease without esophagitis; Z78.1 Physical restraint status; Z96.653 Presence of artificial knee joint, bilateral; Z87.891 Personal history of nicotine dependence; Z60.2 Problems related to living alone; Z79.01 Long term (current) use of anticoagulants; Z79.899 Other long term (current) drug therapy
CPT/HCPCS: 00790; 36415; 74022; 74177; 76705; 80048; 80053; 80076; 81001; 82272; 82550; 82553; 82962; 83690; 83735; 84100; 84484; 85025; 85027; 85610; 85730; 87040; 87804; 88304; 93005; 93010; 93306; 96361; 96374; 96375; 99291; G8978-GP; G8979-GP; J0131; J0330; J1100; J1170; J1644; J2060; J2250; J2270; J2370; J2405; J2543; J2704; J2765; J3010; J3490; J7030; S0119

== ENCOUNTER 2019-08-25 18:13 | Inpatient (IN) | payer MEDICARE ==
[2019-08-25 18:53] LABS: HEMATOCRIT 47.8 % (37.9-51.0); HEMOGLOBIN 16.8 g/dL (13.5-17.0); MEAN CORPUSCULAR HEMOGLOBIN 31.8 pg (27.0-33.4); MEAN CORPUSCULAR HGB CONC 35.2 g/dL (32.0-36.0); MEAN CORPUSCULAR VOLUME 90 fl (80-97); PLATELET COUNT 259 10^3/uL (150-450); RED CELL DISTRIBUTION WIDTH 13.1 % (11.5-14.0); WHITE BLOOD COUNT 16.1 10^3/uL (4.0-10.5)
[2019-08-25 18:58] LABS: INTERNATIONAL RATION (INR) 1.25; PROTHROMBIN TIME 15.7 SEC (11.4-15.4)
--- NOTE | 2019-08-25 19:07 | RADIOLOGY REPORT (SQ) ---
EXAM DESCRIPTION: CT HEAD WITHOUT IMAGES COMPLETED DATE/TIME: 08/25/2019 6:53 pm REASON FOR STUDY: ams COMPARISON: None. TECHNIQUE: Axial images acquired through the brain without intravenous contrast. Images reviewed wi th bone, brain and subdural windows. Additional sagittal and coronal reconstructions were generated. Images stored on PACS. All CT scanners at this facility use dose modulation, iterative reconstruction, and/or weight based d osing when appropriate to reduce radiation dose to as low as reasonably achievable (ALARA). [facility]: Dose Right [facility]: CareDose [facility]: Dose Right [facility]: Teradose 4D [facility]: PixelFish RADIATION DOSE: CT Rad equipment meets quality standard of care and radiation dose reduction techniq ues were employed. CTDIvol: 53.2 mGy. DLP: 1203 mGy-cm. mGy. LIMITATIONS: None. FINDINGS: VENTRICLES: Prominent ventricles secondary to involutional atrophy. CEREBRUM: No masses. No hemorrhage. No midline shift. No evidence for acute infarction. Normal gra y/white matter differentiation. No areas of low density in the white matter. CEREBELLUM: No masses. No hemorrhage. No alteration of density. No evidence for acute infarction. EXTRAAXIAL SPACES: No fluid collections. No masses. ORBITS AND GLOBE: No intra- or extraconal masses. Normal contour of globe without masses. CALVARIUM: No fracture. PARANASAL SINUSES: No fluid or mucosal thickening. SOFT TISSUES: No mass or hematoma. OTHER: No other significant finding. IMPRESSION: Mild involutional changes with no acute intracranial imaging findings. EVIDENCE OF ACUTE STROKE: NO. COMMENT: Quality ID # [id number]: Final reports with documentation of one or more dose reduction techniques (e.g., Automated exposure control, adjustment of the mA and/or kV according to patient size, use of iterative reconstruction technique) TECHNICAL DOCUMENTATION: JOB ID: [id number] 2010 [employer] All Rights Reserved Reading location - IP/workstation name: [email or web address]
[2019-08-25 19:10] LABS: ALBUMIN 4.2 g/dL (3.5-5.0); ALKALINE PHOSPHATASE 88 U/L (38-126); ANION GAP 6 (5-19); ASPARTATE AMINO TRANSFERASE 154 U/L (17-59); BILIRUBIN,TOTAL 1.3 mg/dL (0.2-1.3); BLOOD UREA NITROGEN 27 mg/dL (7-20); CALCIUM 9.3 mg/dL (8.4-10.2); CARBON DIOXIDE 30 mmol/L (22-30); CHLORIDE 101 mmol/L (98-107); GLUCOSE 128 mg/dL (75-110); POTASSIUM 3.7 mmol/L (3.6-5.0); TOTAL PROTEIN 7.3 g/dL (6.3-8.2)
[2019-08-25 19:17] LABS: ABSOLUTE LYMPHOCYTES# (MANUAL) 0.3 10^3/uL (0.5-4.7); ABSOLUTE MONOCYTES # (MANUAL) 0.8 10^3/uL (0.1-1.4); BASOPHILS % (MANUAL) 0 % (0-2); EOSINOPHILS % (MANUAL) 0 % (0-6); LYMPHOCYTES % (MANUAL) 2 % (13-45); MONOCYTES % (MANUAL) 5 % (3-13); SEGMENTED NEUTROPHILS % (MAN) 93 % (42-78); TOTAL CELLS COUNTED 100
[2019-08-25 19:18] LABS: PLATELET COMMENT ADEQUATE; RBC MORPHOLOGY COMMENT NORMO-CYTIC/CHROMIC
[2019-08-25 19:30] LABS: AMORPHOUS SEDIMENT,URINE TRACE /HPF; APPEARANCE,URINE SLIGHTLY-CLOUDY; BILIRUBIN,URINE NEGATIVE (NEGATIVE); COLOR,URINE AMBER; GLUCOSE, URINE NEGATIVE (NEGATIVE); KETONES,URINE TRACE mg/dL (NEGATIVE); LEUKOCYTE ESTERASE,URINE NEGATIVE (NEGATIVE); NITRITE,URINE NEGATIVE (NEGATIVE); PROTEIN,URINE 100 mg/dL (NEGATIVE); URINE SPECIFIC GRAVITY 1.025; UROBILINOGEN,URINE NEGATIVE mg/dL (<2.0)
--- NOTE | 2019-08-25 19:34 | ER Document Report ---
ED General - General Chief Complaint: Altered Mental Status Stated Complaint: ALTERED MENTAL STAUS Time Seen by Provider: 08/25/19 18:28 Primary Care Provider: VIRAL HIGHTOWER MD [Primary Care Provider] - Follow up as needed Mode of Arrival: Medic Information source: Patient TRAVEL OUTSIDE OF THE [place] IN LAST 30 DAYS: No - HPI Notes: Patient is brought in by ambulance after being found down on the floor by a neighbor. The neighbor states he last saw the patient normal about noon when he went over at approximately 6 PM patient was lying on the ground and confused. Patient is unable to tell me why he was lying on the ground. He does not know of any recent vomiting or diarrhea that he has had. He states he has had no known covert virus exposures. He states he has not had a cough or cold. He does states he tried calling on his knees to get up but was unable to get off of the ground. The pain in his knees is mild. It is intermittent. It is worse if touched and better if left alone. They do radiate up both legs. He states he also feels weak. Patient also complains of some right shoulder pain - Related Data Allergies/Adverse Reactions: No Known Allergies Allergy (Verified 12/05/16 11:41) Home Medications: tramadol, spironolactone, bumrtandine, docusate Past Medical History - General Information source: Patient - Social History Smoking Status: Former Smoker Frequency of alcohol use: Occasional Drug Abuse: None Family History: Reviewed & Not Pertinent - Past Medical History Cardiac Medical History: Reports: Hx Atrial Fibrillation Denies: Hx DVT, Hx Heart Attack, Hx Hypercholesterolemia, Hx Hypertension, Hx Pulmonary Embolism Pulmonary Medical History: Denies: Hx Asthma, Hx COPD Neurological Medical History: Denies: Hx Cerebrovascular Accident, Hx Seizures Endocrine Medical History: Denies: Hx Diabetes Mellitus Type 1, Hx Diabetes Mellitus Type 2, Hx Hyperthyroidism, Hx Hypothyroidism Renal/ Medical History: Denies: Hx Peritoneal Dialysis GI Medical History: Reports: Hx Gastroesophageal Reflux Disease. Denies: Hx Cirrhosis, Hx Hepatitis, Hx Hiatal Hernia, Hx Ulcer Musculoskeletal Medical History: Reports Hx Arthritis Psychiatric Medical History: Denies: Hx Depression Infectious Medical History: Denies: Hx Hepatitis Past Surgical History: Reports: Hx Orthopedic Surgery - Bilateral total knee replacement. Right shoulder surgery.. Denies: Hx Open Heart Surgery, Hx Pacemaker - Immunizations Hx Diphtheria, Pertussis, Tetanus Vaccination: Yes Review of Systems - Review of Systems Constitutional: Malaise, Weakness Cardiovascular: denies: Chest pain, Palpitations Respiratory: denies: Cough, Short of breath -: Yes All other systems reviewed and negative Physical Exam - Vital signs Vitals: Temp Pulse Resp BP Pulse Ox 100.9 F H 78 21 H 146/72 H 96 08/25/19 18:48 08/25/19 18:48 08/25/19 18:48 08/25/19 18:48 08/25/19 18:48 Interpretation: Hypertensive, Febrile - General General appearance: Alert In distress: None - HEENT Head: Normocephalic, Atraumatic Eyes: Normal Pupils: PERRL - Respiratory Respiratory status: No respiratory distress Chest status: Nontender Breath sounds: Normal Chest palpation: Normal - Cardiovascular Rhythm: Regular Heart sounds: Normal auscultation Murmur: No - Abdominal Inspection: Normal Distension: No distension Bowel sounds: Normal Tenderness: Nontender Organomegaly: No organomegaly - Back Back: Normal, Nontender - Extremities General upper extremity: Normal inspection, Normal color, Normal temperature, Other - Right shoulder is diffusely tender to palpation and has limited range of motion General lower extremity: Normal temperature, Other - Patient has bilateral erythema and abrasions to both knees. I do not appreciate a significant effusion to either knee. The right knee was mildly tender to palpation but is not an exam that would be consistent with acute infection.. No: Clarisse's sign - Neurological Neuro grossly intact: Yes Cognition: Normal Orientation: Disoriented to time Elsa Coma Scale Eye Opening: Spontaneous [place] Coma Scale Verbal: Confused [place] Coma Scale Motor: Obeys Commands Elsa Coma Scale Total: 14 Speech: Normal Sensory: Normal - Psychological Associated symptoms: Normal affect, Normal mood - Skin Skin Temperature: Warm Skin Moisture: Dry Skin Color: Normal - Except as noted Course - Re-evaluation Re-evalutation: 08/25/19 19:34 Patient was brought in confused after being found on the ground. He is febrile. No obvious source for the fever can be found at this time. He also appears to be on the ground longer than stated as he has already developed significant rhabdo myelitis. Head CT shows no evidence of acute intracranial process however patient is still confused. A COVID test is pending. Patient has some redness to his knees bilaterally but I do not believe he has had joint infection of either knee. He does admit he was crawling across the floor trying to get up and I believe that is why they are erythematous and mildly tender. He also has some diffuse right shoulder pain with limited range of motion. At this time an x-ray of this area is pending but I would find this an unlikely source of an infection as well. Patient has been covered empirically with antibiotics. I have discussed the case with the hospitalist. 08/25/19 20:21 08/25/19 20:31 - Vital Signs Vital signs: Temp Pulse Resp BP Pulse Ox 100.9 F H 78 21 H 146/72 H 96 08/25/19 18:48 08/25/19 18:48 08/25/19 18:48 08/25/19 18:48 08/25/19 18:48 - Laboratory Result Diagrams: 08/25/19 18:30 08/25/19 18:30 Laboratory results interpreted by me: 08/25/19 08/25/19 08/25/19 18:30 18:30 18:30 WBC 16.1 H Seg Neuts % (Manual) 93 H Lymphocytes % (Manual) 2 L Abs Neuts (Manual) 15.0 H Abs Lymphs (Manual) 0.3 L PT 15.7 H BUN 27 H Glucose 128 H AST 154 H ALT 51 H Creatine Kinase 7276 H Urine Protein Urine Ketones Urine Blood 08/25/19 18:30 WBC Seg Neuts % (Manual) Lymphocytes % (Manual) Abs Neuts (Manual) Abs Lymphs (Manual) PT BUN Glucose AST ALT Creatine Kinase Urine Protein 100 H Urine Ketones TRACE H Urine Blood LARGE H - Diagnostic Test Radiology reviewed: Image reviewed, Reports reviewed - EKG Interpretation by Me EKG shows normal: Sinus rhythm Rate: Normal - 77 Rhythm: NSR [place]/QRS: No: Right axis deviation, Left axis deviation Discharge - Discharge Clinical Impression: Confusion Fever Qualifiers: Fever type: unspecified Qualified Code(s): R50.9 - Fever, unspecified Rhabdomyolysis Qualifiers: Rhabdomyolysis type: traumatic Encounter type: initial encounter Qualified Code(s): T79.6XXA - Traumatic ischemia of muscle, initial encounter Condition: Serious Disposition: ADMITTED INPATIENT Admitting Provider: Vianney (Hospitalist) Referrals: VIRAL HIGHTOWER MD [Primary Care Provider] - Follow up as needed
[2019-08-25 19:36] LABS: URINE AMPHETAMINES SCREEN NEGATIVE; URINE BARBITURATES SCREEN NEGATIVE; URINE BENZODIAZEPINES SCREEN NEGATIVE; URINE COCAINE SCREEN NEGATIVE; URINE MARIJUANA (THC) SCREEN NEGATIVE; URINE METHADONE SCREEN NEGATIVE; URINE PHENCYCLIDINE SCREEN NEGATIVE
--- NOTE | 2019-08-25 19:47 | RADIOLOGY REPORT (SQ) ---
EXAM DESCRIPTION: CHEST SINGLE VIEW IMAGES COMPLETED DATE/TIME: 08/25/2019 7:38 pm REASON FOR STUDY: ams COMPARISON: 03/02/2008 EXAM PARAMETERS: NUMBER OF VIEWS: One view. TECHNIQUE: Single frontal radiographic view of the chest acquired. RADIATION DOSE: NA LIMITATIONS: None. FINDINGS: LUNGS AND PLEURA: No opacities, masses or pneumothorax. No pleural effusion. MEDIASTINUM AND HILAR STRUCTURES: No masses. Contour normal. HEART AND VASCULAR STRUCTURES: Heart normal in size. Normal vasculature. BONES: No acute findings. HARDWARE: None in the chest. OTHER: No other significant finding. IMPRESSION: NO ACUTE RADIOGRAPHIC FINDING IN THE CHEST. TECHNICAL DOCUMENTATION: JOB ID: [id number] 2010 [employer]- All Rights Reserved Reading location - IP/workstation name: [email or web address]
[2019-08-25 20:02] LABS: ALCOHOL < 10 mg/dL (NONE DETECTED); CREATINE KINASE 7276 U/L (55-170)
[2019-08-25] MEDS ORDERED: NORMAL SALINE 1000 ML 1,000 ML IV ONE ×2 (20:14)
[2019-08-25] MEDS ORDERED: ACETAMINOPHEN 325 MG TABLET PO ONE (20:15)
[2019-08-25] MEDS ORDERED: VANCOMYCIN HCL INJ 1000 MG VIAL IV ONE (20:30)
[2019-08-25] MEDS ORDERED: CEFTRIAXONE 2 GM/D5W RTU 2 GM/50 ML RTUPB IV ONE ×2 (20:30→23:00)
[2019-08-25] MEDS ORDERED: ACETAMINOPHEN 325 MG TABLET PO PRN (21:09)
[2019-08-25] MEDS ORDERED: ONDANSETRON HCL INJ/PF 4 MG/2 ML SDV IV PRN (21:09)
--- NOTE | 2019-08-25 21:17 | RADIOLOGY REPORT (SQ) ---
EXAM DESCRIPTION: XR SHOULDER 2 OR MORE VIEWS COMPLETED DATE/TME: 08/25/2019 20:15 CLINICAL HISTORY: 84 years, Male, pain COMPARISON: Prior chest radiograph from earlier the same day NUMBER OF VIEWS: 3 TECHNIQUE: Internal/external and transscapular Y projections were obtained LIMITATIONS: None. FINDINGS: Postsurgical changes of right shoulder arthroplasty. Orthopedic hardware appears overall well seated and intact. Underlying moderate AC joint arthrosis is noted, designated by joint space narrowing. No acute fracture or dislocation is evident. Visualized portions of the right lung are clear. IMPRESSION: Postsurgical changes, as above. No underlying acute osseous anomaly. copyright 2010 [employer]- All Rights Reserved
--- NOTE | 2019-08-25 21:28 | PDOC H&P ---
History of Present Illness Admission Date/PCP: VIRAL HIGHTOWER MD History of Present Illness: ESTER CARTER JR is a 84 year old male who was found down on the floor in his home by a neighbor who said they had not seen him in a while. Patient was found down on the floor and EMS said he smelled like urine and there was a little bit of blood on him as well. He had some skin tears on his upper extremity and bruise over his right scapula. Patient is unable to answer questions appropri ately. He does know his name and where he is but he thought I was his jeweler. He had a fever whenever he first came in but he has no obvious source of infection. He was given a dose of vancomycin and Rocephin in the ER but no blood cultures were obtained prior to administration of the antibiotic. Chest x-ray was clear. Head CT was unremarkable. He did have a leukocytosis and an elevated CPK but otherwise had no substantial lab abnormalities. Past Medical History Cardiac Medical History: Reports: Atrial Fibrillation Denies: DVT, Myocardial Infarction, Hyperlipidema, Hypertension, Pulmonary Embolism Pulmonary Medical History: Denies: Asthma, Chronic Obstructive Pulmonary Disease (COPD) Neurological Medical History: Denies: Seizures Endocrine Medical History: Denies: Diabetes Mellitus Type 1, Diabetes Mellitus Type 2, Hyperthyroidism, Hypothyroidism GI Medical History: Reports: Gastroesophageal Reflux Disease Denies: Cirrhosis, Hepatitis, Hiatal Hernia Musculoskeltal Medical History: Reports: Arthritis Psychiatric Medical History: Denies: Depression Hematology: Denies: Anemia, Sickle Cell Disease Past Surgical History Past Surgical History: Reports: Orthopedic Surgery - Bilateral total knee replacement. Right shoulder surgery. Denies: Pacemaker Social History Smoking Status: Former Smoker Frequency of Alcohol Use: Rare Hx Recreational Drug Use: No Drugs: None Hx Prescription Drug Abuse: No Family History Family History: Reviewed & Not Pertinent Parental Family History Reviewed: No - Unable to obtain Children Family History Reviewed: No - Unable to obtain Sibling(s) Family History Reviewed.: No - Unable to obtain Medication/Allergy Home Medications: Apixaban [Eliquis 5 mg Tablet] 5 mg PO BID 04/05/16 Tamsulosin HCl [Flomax 0.4 mg Cap.sr] 0.4 mg PO DAILY #30 cap.sr.24h 04/09/16 Carvedilol 3.125 mg PO BID 12/05/16 Furosemide [Lasix] 60 mg PO BID 12/05/16 Potassium Chloride [K-Tab ER] 40 meq PO DAILY #6 tablet.er 12/05/16 Allergies/Adverse Reactions: No Known Allergies Allergy (Verified 12/05/16 11:41) Review of Systems ROS unobtainable: Due to mental status Physical Exam Vital Signs: Temp Pulse Resp BP Pulse Ox 100.9 F H 78 21 H 146/72 H 96 08/25/19 18:48 08/25/19 18:48 08/25/19 18:48 08/25/19 18:48 08/25/19 18:48 Intake & Output 08/24/19 08/25/19 08/26/19 06:59 06:59 06:59 Weight 106.4 kg General appearance: PRESENT: disheveled, mild distress, morbidly obese, other - He appeared to have some mild chills Head exam: PRESENT: atraumatic, normocephalic Eye exam: PRESENT: EOMI, PERRLA. ABSENT: conjunctival injection, nystagmus, sc leral icterus Ear exam: PRESENT: normal external ear exam Mouth exam: PRESENT: dry mucosa, neck supple Teeth exam: PRESENT: poor dentation Throat exam: ABSENT: post pharyngeal erythema Neck exam: PRESENT: full ROM. ABSENT: carotid bruit, JVD, lymphadenopathy, meningismus, tenderness, thyromegaly Respiratory exam: PRESENT: clear to auscultation genny, symmetrical, unlabored. ABSENT: accessory muscle use, chest wall tenderness, crackles, prolonged expiratory phas, rhonchi, tachypnea, wheezes Cardiovascular exam: PRESENT: RRR, +S1, +S2 Pulses: PRESENT: normal carotid pulses Vascular exam: PRESENT: normal capillary refill GI/Abdominal exam: PRESENT: normal bowel sounds, soft. ABSENT: distended, guarding, rebound, tenderness Extremities exam: ABSENT: clubbing, pedal edema Musculoskeletal exam: PRESENT: normal inspection, other - Had an old surgical scar over the right knee and right shoulder. ABSENT: deformity Neurological exam: PRESENT: awake, oriented to person, oriented to place, CN II- XII grossly intact. ABSENT: oriented to situation, motor sensory deficit Psychiatric exam: PRESENT: agitated Skin exam: PRESENT: dry, warm Results Laboratory Results: 08/25/19 18:30 08/25/19 18:30 08/25/19 08/25/1908/24/20 18:30 18:30 18:30 WBC 16.1 H RBC 5.30 Hgb 16.8 Hct 47.8 MCV 90 MCH 31.8 MCHC 35.2 RDW 13.1 Plt Count 259 Seg Neutrophils % Not Reportable Sodium 137.2 Potassium 3.7 Chloride 101 Carbon Dioxide 30 Anion Gap 6 BUN 27 H Creatinine 0.98 Est GFR ( Amer) > 60 Glucose 128 H Lactic Acid 1.8 Calcium 9.3 Magnesium 2.2 Total Bilirubin 1.3 AST 154 H Alkaline Phosphatase 88 Total Protein 7.3 Albumin 4.2 Urine Color Urine Appearance Urine pH Ur Specific [place] Urine Protein Urine Glucose (UA) Urine Ketones Urine Blood Urine Nitrite Ur Leukocyte Esterase Urine WBC (Auto) Urine RBC (Auto) 08/25/19 18:30 WBC RBC Hgb Hct MCV MCH MCHC RDW Plt Count Seg Neutrophils % Sodium Potassium Chloride Carbon Dioxide Anion Gap BUN Creatinine Est GFR ( Amer) Glucose Lactic Acid Calcium Magnesium Total Bilirubin AST Alkaline Phosphatase Total Protein Albumin Urine Color MARIA ELENA Urine Appearance SLIGHTLY-CLOUDY Urine pH 5.0 Ur Specific [place] 1.025 Urine Protein 100 H Urine Glucose (UA) NEGATIVE Urine Ketones TRACE H Urine Blood LARGE H Urine Nitrite NEGATIVE Ur Leukocyte Esterase NEGATIVE Urine WBC (Auto) 2 Urine RBC (Auto) 2 08/25/19 08/25/19 18:30 18:30 Creatine Kinase 7276 H Troponin I 0.013 Impressions: Head CT 08/25/19 18:34 IMPRESSION: Mild involutional changes with no acute intracranial imaging findings. EVIDENCE OF ACUTE STROKE: NO. Chest X-Ray 08/25/19 19:18 IMPRESSION: NO ACUTE RADIOGRAPHIC FINDING IN THE CHEST. Assessment and Plan - Diagnosis (1) Fever of unknown origin (FUO) Is this a current diagnosis for this admission?: Yes Plan: I went ahead and ordered some blood cultures but they had ordered antibiotics on him before we can get the blood culture sent and if anything is going to show up or not. He has no evidence of a skin infection. He does have a couple of small skin tears on his upper extremities but they do not look infected he does not have a pressure ulcer anywhere that I could see. He is not complaining of any cough or shortness of breath and his chest x-ray was clear. He is not complaining of any abdominal pain and had a benign abdominal exam. Urinalysis was unremarkable. This could be from his rhabdomyolysis. I am going to hold off on giving him any further antibiotics and see how he responds to hydration. If he has a worsening of his fever I will initiate empiric antibiotics while we look for a source. (2) Rhabdomyolysis Qualifiers: Rhabdomyolysis type: traumatic Encounter type: initial encounter Qualified Code(s): T79.6XXA - Traumatic ischemia of muscle, initial encounter Is this a current diagnosis for this admission?: Yes Plan: Likely from a crush injury from prolonged downtime. Renal function is intact. We will give him IV fluids and monitor his urine output and electrolytes and the follow the trend in his CPK. (3) BPH (benign prostatic hyperplasia) Qualifiers: Lower urinary tract symptom presence: unspecified whether lower urinary tract symptoms present Qualified Code(s): N40.0 - Benign prostatic hyperplasia wi thout lower urinary tract symptoms Is this a current diagnosis for this admission?: Yes Plan: He is on Flomax at home which we will continue (4) Acute metabolic encephalopathy Is this a current diagnosis for this admission?: Yes Plan: Secondary to his prolonged downtime with rhabdomyolysis and fever of unknown origin. I do not know what his baseline mental status is but we will monitor for any changes. (5) Anticoagulated Is this a current diagnosis for this admission?: Yes Plan: He is on Eliquis but I do not know why. We will continue this and hopefully we can find out why he takes this medication. He had a sinus rhythm on his EKG and he only takes a very small dose of Coreg. He is also on Lasix but I do not know if he has a history of heart failure. - Time Time Spent with patient: 35 or more minutes - Inpatient Certification Based on my medical assessment, after consideration of the patient's comorbidities, presenting symptoms, or acuity I expect that the services needed warrant INPATIENT care.: Yes I certify that my determination is in accordance with my understanding of Medicare's requirements for reasonable and necessary INPATIENT services [42 CFR 412.3e].: Yes Medical Necessity: Significant Comorbidiites Make Outpatient Treatment Too Risky, Need Close Monitoring Due to Risk of Patient Decompensation, Need For IV Fluids, Need For Continuous Telemetry Monitoring, Need for Neurological Checks, Risk of Complication if Not Cared For in Hospital
[2019-08-26] MEDS: RINGERS SOLUTION,LACTATED 1,000 ML IV PRN ×3 (01:38→23:56)
[2019-08-26 04:25] LABS: ABSOLUTE BASOPHILS # (AUTO) 0.1 10^3/uL (0.0-0.2); ABSOLUTE EOSINOPHILS # (AUTO) 0.1 10^3/uL (0.0-0.6); ABSOLUTE LYMPHOCYTES (AUTO) 1.3 10^3/uL (0.5-4.7); ABSOLUTE MONOCYTES (AUTO) 1.3 10^3/uL (0.1-1.4); ABSOLUTE NEUT (AUTO) 11.2 10^3/uL (1.7-8.2); BASOPHILS % (AUTO) 0.5 % (0-2); EOSINOPHILS % (AUTO) 0.7 % (0-6); HEMATOCRIT 44.2 % (37.9-51.0); HEMOGLOBIN 15.7 g/dL (13.5-17.0); LYMPHOCYTES % (AUTO) 9.1 % (13-45); MEAN CORPUSCULAR HEMOGLOBIN 31.8 pg (27.0-33.4); MEAN CORPUSCULAR HGB CONC 35.5 g/dL (32.0-36.0); MEAN CORPUSCULAR VOLUME 90 fl (80-97); MONOCYTES % (AUTO) 9.4 % (3-13); PLATELET COUNT 197 10^3/uL (150-450); RED BLOOD COUNT 4.93 10^6/uL (4.35-5.55); RED CELL DISTRIBUTION WIDTH 13.1 % (11.5-14.0); SEGMENTED NEUTROPHILS % (AUTO) 80.3 % (42-78); TOTAL CELLS COUNTED % (AUTO) 100 %
[2019-08-26 04:39] LABS: ALBUMIN 3.5 g/dL (3.5-5.0); ALKALINE PHOSPHATASE 75 U/L (38-126); ANION GAP 6 (5-19); ASPARTATE AMINO TRANSFERASE 174 U/L (17-59); BLOOD UREA NITROGEN 25 mg/dL (7-20); CALCIUM 8.8 mg/dL (8.4-10.2); CARBON DIOXIDE 28 mmol/L (22-30); CHLORIDE 104 mmol/L (98-107); GLUCOSE 102 mg/dL (75-110); POTASSIUM 3.8 mmol/L (3.6-5.0); TOTAL PROTEIN 6.4 g/dL (6.3-8.2)
[2019-08-26 04:57] LABS: CREATINE KINASE 5792 U/L (55-170)
[2019-08-26] MEDS ORDERED: HEPARIN SOD (PORCINE) 5,000 UNIT/ML 1 ML VIAL ONE (04:59)
[2019-08-26] MEDS: HEPARIN SOD (PORCINE) 5,000 UNIT/ML 1 ML VIAL SUBCUT SCH ×3 (05:43→23:00)
[2019-08-26] MEDS: NYSTATIN CREAM 15 GM TP SCH ×2 (12:52→17:18)
--- NOTE | 2019-08-26 13:20 | EKG REPORT ---
SEVERITY:- BORDERLINE ECG - SINUS RHYTHM BORDERLINE T ABNORMALITIES, ANTERIOR LEADS : Confirmed by: George Darnell MD 26-Aug-2019 13:19:36
--- NOTE | 2019-08-26 15:00 | PDOC PROGRESS REPORT ---
Subjective Progress Note for:: 08/26/19 Subjective:: The patient is an 84-year-old male with a past medical history significant for atrial fibrillation, obesity, arthritis who was admitted 08/25/2019 with fever of unknown origin, rhabdomyolysis, and acute metabolic encephalopathy. Patient was seen on morning rounds. He was found resting in bed, comfortably, on room air. He is alert and oriented to person, place, year; but does not recall the events leading up to his admission. He is able to tell me that his neighbor told him he was lying on the floor but he cannot recall how he ended up on the floor, or how long he was there. He denies pain today related to possible injury during fall. He does report fatigue and generalized weakness, but otherwise states he is feeling well. He specifically denies fever, chills, chest pain, palpitations, dyspnea, cough, abdominal pain, nausea vomiting diarrhea. He has good appetite; ate most of his breakfast this morning. He has no other questions or concerns at this time. Nursing recommends physical therapy/Occupational Therapy consultation and discharge planning referral. Reason For Visit: RHABDOMYOLYSIS,FUO Physical Exam Vital Signs: Temp Pulse Resp BP Pulse Ox 98.9 F 87 31 H 133/63 H 97 08/26/19 12:00 08/26/19 12:00 08/26/19 12:44 08/26/19 12:44 08/26/19 12:00 Intake & Output 08/25/19 08/26/19 08/27/19 06:59 06:59 06:59 Intake Total 2050 1300 Output Total 190 150 Balance 1860 1150 Weight 107.8 kg General appearance: PRESENT: no acute distress, cooperative, disheveled, obese, well-developed, well-nourished Head exam: PRESENT: atraumatic, normocephalic Eye exam: PRESENT: conjunctiva pink, EOMI, PERRLA. ABSENT: scleral icterus Mouth exam: PRESENT: moist, tongue midline Teeth exam: PRESENT: poor dentation Respiratory exam: PRESENT: clear to auscultation genny, symmetrical, unlabored. ABSENT: rales, rhonchi, wheezes Cardiovascular exam: PRESENT: RRR. ABSENT: diastolic murmur, rubs, systolic murmur Pulses: PRESENT: normal dorsalis pedis pul Vascular exam: PRESENT: normal capillary refill GI/Abdominal exam: PRESENT: normal bowel sounds, soft. ABSENT: distended, guarding, mass, organolmegaly, rebound, tenderness Rectal exam: PRESENT: deferred Extremities exam: PRESENT: full ROM. ABSENT: calf tenderness, clubbing, pedal edema Neurological exam: PRESENT: alert, awake, oriented to person, oriented to place, oriented to time, oriented to situation, CN II-XII grossly intact. ABSENT: motor sensory deficit Psychiatric exam: PRESENT: appropriate affect, normal mood. ABSENT: homicidal ideation, suicidal ideation Skin exam: PRESENT: dry, intact, warm, other - Bruising to right posterior shoulder, abrasion to posterior scalp. ABSENT: cyanosis, rash Results Laboratory Results: 08/26/19 04:09 08/26/19 04:09 08/25/19 08/25/19 08/25/19 18:30 18:30 18:30 WBC 16.1 H RBC 5.30 Hgb 16.8 Hct 47.8 MCV 90 MCH 31.8 MCHC 35.2 RDW 13.1 Plt Count 259 Seg Neutrophils % Not Reportable Sodium 137.2 Potassium 3.7 Chloride 101 Carbon Dioxide 30 Anion Gap 6 BUN 27 H Creatinine 0.98 Est GFR ( Amer) > 60 Glucose 128 H Lactic Acid 1.8 Calcium 9.3 Magnesium 2.2 Total Bilirubin 1.3 AST 154 H Alkaline Phosphatase 88 Total Protein 7.3 Albumin 4.2 Urine Color Urine Appearance Urine pH Ur Specific [place] Urine Protein Urine Glucose (UA) Urine Ketones Urine Blood Urine Nitrite Ur Leukocyte Esterase Urine WBC (Auto) Urine RBC (Auto) 08/25/19 08/26/19 08/26/19 18:30 04:09 04:09 WBC 14.0 H RBC 4.93 Hgb 15.7 Hct 44.2 MCV 90 MCH 31.8 MCHC 35.5 RDW 13.1 Plt Count 197 Seg Neutrophils % 80.3 H Sodium 138.3 Potassium 3.8 Chloride 104 Carbon Dioxide 28 Anion Gap 6 BUN 25 H Creatinine 0.87 Est GFR ( Amer) > 60 Glucose 102 Lactic Acid Calcium 8.8 Magnesium 2.2 Total Bilirubin 1.0 AST 174 H Alkaline Phosphatase 75 Total Protein 6.4 Albumin 3.5 Urine Color [place] Urine Appearance SLIGHTLY-CLOUDY Urine pH 5.0 Ur Specific [place] 1.025 Urine Protein 100 H Urine Glucose (UA) NEGATIVE Urine Ketones TRACE H Urine Blood LARGE H Urine Nitrite NEGATIVE Ur Leukocyte Esterase NEGATIVE Urine WBC (Auto) 2 Urine RBC (Auto) 2 08/25/19 08/25/19 08/26/19 18:30 18:30 04:09 Creatine Kinase 7276 H 5792 H Troponin I 0.013 Impressions: Head CT 08/25/19 18:34 IMPRESSION: Mild involutional changes with no acute intracranial imaging findings. EVIDENCE OF ACUTE STROKE: NO. Chest X-Ray 08/25/19 19:18 IMPRESSION: NO ACUTE RADIOGRAPHIC FINDING IN THE CHEST. Shoulder X-Ray 08/25/19 20:15 IMPRESSION: Postsurgical changes, as above. No underlying acute osseous anomaly. copyright 2010 [employer]- All Rights Reserved Assessment and Plan - Diagnosis (1) Rhabdomyolysis Qualifiers: Rhabdomyolysis type: traumatic Encounter type: initial encounter Qualified Code(s): T79.6XXA - Traumatic ischemia of muscle, initial encounter Is this a current diagnosis for this admission?: Yes Plan: Likely from a crush injury from prolonged downtime. Renal function is intact. CPK trending down; 7276-> 5792 Continue generous IV fluids. Encourage p.o. fluids. Follow-up chemistry and CK (2) Fever of unknown origin (FUO) Is this a current diagnosis for this admission?: Yes Plan: Tmax 100.9/24 hrs Leukocytosis is trending down; 16.1->14.0 Blood cultures are pending. Urinalysis is negative for UTI. Chest x-ray is benign. He is noted to have mild skin irritation to skin folds. COVID pending. Possibly related to rhabdomyolysis. We will hold on additional antibiotics and continue to observe for signs of infectious process. (3) Acute metabolic encephalopathy Is this a current diagnosis for this admission?: Yes Plan: Secondary to his prolonged downtime with rhabdomyolysis and fever of unknown origin. Currently alert and oriented x4, though with intermittent forgetfulness and repetitiveness. Unclear on baseline mentation. Management of #1 and 2 as above. Supportive care. Fall precautions. Discharge planning consulted. (4) BPH (benign prostatic hyperplasia) Qualifiers: Lower urinary tract symptom presence: unspecified whether lower urinary tract symptoms present Qualified Code(s): N40.0 - Benign prostatic hyperplasia without lower urinary tract symptoms Is this a current diagnosis for this admission?: Yes Plan: He is on Flomax at home which we will continue (5) Anticoagulated Is this a current diagnosis for this admission?: No Plan: The patient's home medications have now been reconciled. It does not appear that he is currently on Eliquis. He does have a history of paroxysmal atrial fibrillation with RVR (ED visit 2017). He is currently in sinus rhythm. Continue monitor on telemetry. - Time Time Spent with patient: 35 or more minutes Medications reviewed and adjusted accordingly: Yes Anticipated discharge: Home with Homehealth
[2019-08-27] MEDS: HEPARIN SOD (PORCINE) 5,000 UNIT/ML 1 ML VIAL SUBCUT SCH (05:04)
[2019-08-27 05:43] LABS: ABSOLUTE BASOPHILS # (AUTO) 0.1 10^3/uL (0.0-0.2); ABSOLUTE EOSINOPHILS # (AUTO) 0.1 10^3/uL (0.0-0.6); ABSOLUTE LYMPHOCYTES (AUTO) 1.1 10^3/uL (0.5-4.7); ABSOLUTE MONOCYTES (AUTO) 0.7 10^3/uL (0.1-1.4); ABSOLUTE NEUT (AUTO) 8.6 10^3/uL (1.7-8.2); BASOPHILS % (AUTO) 0.6 % (0-2); EOSINOPHILS % (AUTO) 1.4 % (0-6); HEMATOCRIT 40.1 % (37.9-51.0); HEMOGLOBIN 14.5 g/dL (13.5-17.0); LYMPHOCYTES % (AUTO) 10.4 % (13-45); MEAN CORPUSCULAR HEMOGLOBIN 32.2 pg (27.0-33.4); MEAN CORPUSCULAR HGB CONC 36.1 g/dL (32.0-36.0); MEAN CORPUSCULAR VOLUME 89 fl (80-97); MONOCYTES % (AUTO) 6.6 % (3-13); PLATELET COUNT 198 10^3/uL (150-450); RED BLOOD COUNT 4.49 10^6/uL (4.35-5.55); TOTAL CELLS COUNTED % (AUTO) 100 %; WHITE BLOOD COUNT 10.6 10^3/uL (4.0-10.5)
[2019-08-27 06:04] LABS: ALBUMIN 2.8 g/dL (3.5-5.0); ALKALINE PHOSPHATASE 65 U/L (38-126); ANION GAP 8 (5-19); ASPARTATE AMINO TRANSFERASE 199 U/L (17-59); BILIRUBIN,TOTAL 0.6 mg/dL (0.2-1.3); BLOOD UREA NITROGEN 18 mg/dL (7-20); CALCIUM 8.6 mg/dL (8.4-10.2); CARBON DIOXIDE 23 mmol/L (22-30); CHLORIDE 106 mmol/L (98-107); GLUCOSE 88 mg/dL (75-110); TOTAL PROTEIN 5.3 g/dL (6.3-8.2)
[2019-08-27 06:26] LABS: CREATINE KINASE 4388 U/L (55-170)
[2019-08-27] MEDS: NYSTATIN CREAM 15 GM TP SCH ×2 (09:29→17:10)
[2019-08-27] MEDS ORDERED: METOPROLOL TARTRATE 25 MG TABLET PO ONE (13:31)
--- NOTE | 2019-08-27 13:37 | PDOC PROGRESS REPORT ---
Subjective Progress Note for:: 08/27/19 Subjective:: The patient is an 84-year-old male with a past medical history significant for atrial fibrillation, obesity, arthritis who was admitted 08/25/2019 with fever of unknown origin, rhabdomyolysis, and acute metabolic encephalopathy. Patient was seen on morning rounds. He was found resting in bed, comfortably, on room air. He is alert and oriented to person, place, year; but does not recall the events leading up to his admission. Overall improved from yesterday. He denies all complaints; reports he is feeling well. Pleased that he was able to get out of bed and walk with PT today. He denies fever, chills, chest pain, palpitations, dyspnea, cough, abdominal pain, nausea vomiting diarrhea. Reports good appetite. He has no questions or concerns at this time. No concerns per nursing. Reason For Visit: RHABDOMYOLYSIS,FUO Physical Exam Vital Signs: Temp Pulse Resp BP Pulse Ox 98.1 F 29 L 19 140/65 H 98 08/27/19 11:09 08/27/19 11:09 08/27/19 11:09 08/27/19 11:09 08/27/19 11:09 Intake & Output 08/26/19 08/27/19 08/28/19 06:59 06:59 06:59 Intake Total 2050 2500 360 Output Total 190 350 Balance 1860 2150 360 Weight 107.8 kg 107.8 kg General appearance: PRESENT: no acute distress, cooperative, obese, well- developed, well-nourished Head exam: PRESENT: atraumatic, normocephalic Eye exam: PRESENT: conjunctiva pink, EOMI, PERRLA. ABSENT: scleral icterus Mouth exam: PRESENT: moist, tongue midline Respiratory exam: PRESENT: clear to auscultation genny, symmetrical, unlabored. ABSENT: rales, rhonchi, wheezes Cardiovascular exam: PRESENT: irregular rhythm, +S1, +S2. ABSENT: diastolic murmur, rubs, systolic murmur Pulses: PRESENT: normal dorsalis pedis pul Vascular exam: PRESENT: normal capillary refill GI/Abdominal exam: PRESENT: normal bowel sounds, soft. ABSENT: distended, guarding, mass, organolmegaly, rebound, tenderness Rectal exam: PRESENT: deferred Extremities exam: PRESENT: full ROM. ABSENT: calf tenderness, clubbing, pedal edema Musculoskeletal exam: PRESENT: ambulatory Neurological exam: PRESENT: alert, awake, oriented to person, oriented to place, oriented to time, oriented to situation, CN II-XII grossly intact. ABSENT: motor sensory deficit Psychiatric exam: PRESENT: appropriate affect, normal mood. ABSENT: homicidal ideation, suicidal ideation Skin exam: PRESENT: dry, intact, warm. ABSENT: cyanosis, rash Results Laboratory Results: 08/27/19 04:52 08/27/19 04:52 08/27/19 08/27/19 04:52 04:52 WBC 10.6 H RBC 4.49 Hgb 14.5 Hct 40.1 MCV 89 MCH 32.2 MCHC 36.1 H RDW 13.0 Plt Count 198 Seg Neutrophils % 81.0 H Sodium 136.8 L Potassium 4.0 Chloride 106 Carbon Dioxide 23 Anion Gap 8 BUN 18 Creatinine 0.72 Est GFR ( Amer) > 60 Glucose 88 Calcium 8.6 Magnesium 2.0 Total Bilirubin 0.6 AST 199 H Alkaline Phosphatase 65 Total Protein 5.3 L Albumin 2.8 L 08/25/19 08/25/19 08/26/19 18:30 18:30 04:09 Creatine Kinase 7276 H 5792 H Troponin I 0.013 08/27/19 04:52 Creatine Kinase 4388 H Troponin I Impressions: Head CT 08/25/19 18:34 IMPRESSION: Mild involutional changes with no acute intracranial imaging findings. EVIDENCE OF ACUTE STROKE: NO. Chest X-Ray 08/25/19 19:18 IMPRESSION: NO ACUTE RADIOGRAPHIC FINDING IN THE CHEST. Shoulder X-Ray 08/25/19 20:15 IMPRESSION: Postsurgical changes, as above. No underlying acute osseous anomaly. copyright 2010 [employer] All Rights Reserved Assessment and Plan - Diagnosis (1) Rhabdomyolysis Qualifiers: Rhabdomyolysis type: traumatic Encounter type: initial encounter Qualified Code(s): T79.6XXA - Traumatic ischemia of muscle, initial encounter Is this a current diagnosis for this admission?: Yes Plan: Likely from a crush injury from prolonged downtime. Renal function is intact. CPK trending down; 7276-> 5792-> 4388 Continue generous IV fluids. Encourage p.o. fluids. Hold home dose spironolactone and Bumex. Follow-up chemistry and CK (2) Fever of unknown origin (FUO) Is this a current diagnosis for this admission?: Yes Plan: Tmax 100.9/48 hrs. afebrile x24 Leukocytosis is trending down; 16.1->14.0-> 10.6 Blood cultures NGTD Urinalysis is negative for UTI. Chest x-ray is benign. He is noted to have mild skin irritation to skin folds. COVID pending. Likely related to rhabdomyolysis. We will hold on additional antibiotics and continue to observe for signs of infectious process. (3) Acute metabolic encephalopathy Is this a current diagnosis for this admission?: Yes Plan: Significantly improved. A&O x4; remembers me from yesterday. Engages in detailed conversations. Secondary to his prolonged downtime with rhabdomyolysis and fever of unknown origin. Management of #1 and 2 as above. Supportive care. Fall precautions. Discharge planning consulted. (4) BPH (benign prostatic hyperplasia) Qualifiers: Lower urinary tract symptom presence: unspecified whether lower urinary tract symptoms present Qualified Code(s): N40.0 - Benign prostatic hyperplasia without lower urinary tract symptoms Is this a current diagnosis for this admission?: Yes Plan: He is on Flomax at home which we will continue (5) Anticoagulated Is this a current diagnosis for this admission?: No Plan: He does have a history of paroxysmal atrial fibrillation with RVR (ED visit 2017). Patient confirms longstanding history of atrial fibrillation. He confirms that he should be on Eliquis twice daily. We will resume Eliquis 5 mg twice daily Continue monitor on telemetry. (6) Atrial fibrillation Qualifiers: Atrial fibrillation type: paroxysmal Qualified Code(s): I48.0 - Paroxysmal atrial fibrillation Is this a current diagnosis for this admission?: Yes Plan: Patient confirms a history of paroxysmal atrial fibrillation. This admission, he has been noted to have intermittent normal sinus rhythm and A. fib. Will start on low-dose metoprolol 12.5 mg XL twice daily for rate control. Continue home dose Eliquis. Monitor on telemetry. Would benefit from outpatient cardiology follow-up. - Time Time Spent with patient: 35 or more minutes Medications reviewed and adjusted accordingly: Yes Anticipated discharge: Home with Homehealth Within: within 72 hours
[2019-08-27] MEDS: RINGERS SOLUTION,LACTATED 1,000 ML IV PRN ×2 (14:00→21:22)
[2019-08-27] MEDS: APIXABAN 5 MG TABLET PO SCH (17:10)
[2019-08-27] MEDS ORDERED: METOPROLOL TARTRATE 25 MG TABLET PO SCH (22:00)
[2019-08-27] MEDS: METOPROLOL TARTRATE 25 MG TABLET PO SCH (22:01)
[2019-08-28] MEDS: RINGERS SOLUTION,LACTATED 1,000 ML IV PRN ×2 (05:31→17:12)
[2019-08-28 06:51] LABS: ABSOLUTE BASOPHILS # (AUTO) 0.1 10^3/uL (0.0-0.2); ABSOLUTE EOSINOPHILS # (AUTO) 0.2 10^3/uL (0.0-0.6); ABSOLUTE LYMPHOCYTES (AUTO) 1.2 10^3/uL (0.5-4.7); ABSOLUTE MONOCYTES (AUTO) 0.7 10^3/uL (0.1-1.4); ABSOLUTE NEUT (AUTO) 7.1 10^3/uL (1.7-8.2); EOSINOPHILS % (AUTO) 2.5 % (0-6); HEMATOCRIT 43.2 % (37.9-51.0); HEMOGLOBIN 15.3 g/dL (13.5-17.0); LYMPHOCYTES % (AUTO) 13.3 % (13-45); MEAN CORPUSCULAR HEMOGLOBIN 31.9 pg (27.0-33.4); MEAN CORPUSCULAR HGB CONC 35.4 g/dL (32.0-36.0); MEAN CORPUSCULAR VOLUME 90 fl (80-97); MONOCYTES % (AUTO) 7.4 % (3-13); PLATELET COUNT 213 10^3/uL (150-450); RED CELL DISTRIBUTION WIDTH 13.1 % (11.5-14.0); SEGMENTED NEUTROPHILS % (AUTO) 75.8 % (42-78); TOTAL CELLS COUNTED % (AUTO) 100 %; WHITE BLOOD COUNT 9.3 10^3/uL (4.0-10.5)
[2019-08-28 07:16] LABS: ALKALINE PHOSPHATASE 65 U/L (38-126); ANION GAP 6 (5-19); ASPARTATE AMINO TRANSFERASE 161 U/L (17-59); BILIRUBIN,TOTAL 0.6 mg/dL (0.2-1.3); BLOOD UREA NITROGEN 16 mg/dL (7-20); CALCIUM 8.8 mg/dL (8.4-10.2); CARBON DIOXIDE 22 mmol/L (22-30); CHLORIDE 109 mmol/L (98-107); GLUCOSE 89 mg/dL (75-110); POTASSIUM 4.2 mmol/L (3.6-5.0); TOTAL PROTEIN 5.6 g/dL (6.3-8.2)
[2019-08-28 07:45] LABS: CREATINE KINASE 2471 U/L (55-170)
[2019-08-28] MEDS: APIXABAN 5 MG TABLET PO SCH ×2 (09:20→17:10)
[2019-08-28] MEDS: METOPROLOL TARTRATE 25 MG TABLET PO SCH ×2 (09:20→21:25)
[2019-08-28] MEDS: NYSTATIN CREAM 15 GM TP SCH ×2 (11:43→17:18)
--- NOTE | 2019-08-28 14:07 | PDOC PROGRESS REPORT ---
Subjective Progress Note for:: 08/28/19 Subjective:: The patient is an 84-year-old male with a past medical history significant for atrial fibrillation, obesity, arthritis who was admitted 08/25/2019 with fever of unknown origin, rhabdomyolysis, and acute metabolic encephalopathy. Patient was seen on morning rounds. He was sitting up to the recliner, comfortably, on room air. He is A&Ox4. Did "slide" out of bed this morning to the floor, without injury; reports that he has generalized weakness worse than his baseline. Otherwise, is feeling well. He would like to d/c home with home health services; reports good social support. He denies fever, chills, chest pain, palpitations, dyspnea, cough, abdominal pain, nausea vomiting diarrhea. Reports good appetite. He has no questions or concerns at this time. No other concerns per nursing. Reason For Visit: RHABDOMYOLYSIS,FUO Physical Exam Vital Signs: Temp Pulse Resp BP Pulse Ox 98.3 F 65 18 123/72 91 L 08/28/19 11:22 08/28/19 11:22 08/28/19 11:22 08/28/19 11:22 08/28/19 11:22 Intake & Output 08/27/19 08/28/19 08/29/19 06:59 06:59 06:59 Intake Total 2500 3641 838 Output Total 350 100 100 Balance 2150 3541 738 Weight 107.8 kg 110.5 kg General appearance: PRESENT: no acute distress, cooperative - pleasant, obese, well-developed, well-nourished Head exam: PRESENT: atraumatic, normocephalic Eye exam: PRESENT: conjunctiva pink, EOMI, PERRLA. ABSENT: scleral icterus Mouth exam: PRESENT: moist, tongue midline Respiratory exam: PRESENT: clear to auscultation genny, symmetrical, unlabored. ABSENT: rales, rhonchi, wheezes Cardiovascular exam: PRESENT: RRR. ABSENT: diastolic murmur, rubs, systolic murmur Pulses: PRESENT: normal dorsalis pedis pul Vascular exam: PRESENT: normal capillary refill Extremities exam: PRESENT: full ROM. ABSENT: calf tenderness, clubbing, pedal edema Neurological exam: PRESENT: alert, awake, oriented to person, oriented to place, oriented to time, oriented to situation, CN II-XII grossly intact. ABSENT: motor sensory deficit Psychiatric exam: PRESENT: appropriate affect - tearful; discussing decreased independence, normal mood. ABSENT: homicidal ideation, suicidal ideation Skin exam: PRESENT: dry, warm. ABSENT: cyanosis, intact - abrasions bilateral elbows (POA), rash Results Laboratory Results: 08/28/19 06:25 08/28/19 06:25 08/28/19 08/28/19 06:25 06:25 WBC 9.3 RBC 4.80 Hgb 15.3 Hct 43.2 MCV 90 MCH 31.9 MCHC 35.4 RDW 13.1 Plt Count 213 Seg Neutrophils % 75.8 Sodium 136.6 L Potassium 4.2 Chloride 109 H Carbon Dioxide 22 Anion Gap 6 BUN 16 Creatinine 0.67 Est GFR ( Amer) > 60 Glucose 89 Calcium 8.8 Magnesium 2.0 Total Bilirubin 0.6 AST 161 H Alkaline Phosphatase 65 Total Protein 5.6 L Albumin 3.0 L 08/25/19 08/25/19 08/26/19 18:30 18:30 04:09 Creatine Kinase 7276 H 5792 H Troponin I 0.013 08/27/19 08/28/19 04:52 06:25 Creatine Kinase 4388 H 2471 H Troponin I Impressions: Head CT 08/25/19 18:34 IMPRESSION: Mild involutional changes with no acute intracranial imaging findings. EVIDENCE OF ACUTE STROKE: NO. Chest X-Ray 08/25/19 19:18 IMPRESSION: NO ACUTE RADIOGRAPHIC FINDING IN THE CHEST. Shoulder X-Ray 08/25/19 20:15 IMPRESSION: Postsurgical changes, as above. No underlying acute osseous anomaly. copyright 2010 [employer]- All Rights Reserved Assessment and Plan - Diagnosis (1) Rhabdomyolysis Qualifiers: Rhabdomyolysis type: traumatic Encounter type: initial encounter Qualified Code(s): T79.6XXA - Traumatic ischemia of muscle, initial encounter Is this a current diagnosis for this admission?: Yes Plan: Improved. Likely from a crush injury from prolonged downtime. Renal function is intact. CPK trending down; 7276-> 5792-> 4388-> 2471 Continue generous IV fluids. Encourage p.o. fluids. Hold home dose spironolactone and Bumex. Follow-up chemistry and CK (2) Fever of unknown origin (FUO) Is this a current diagnosis for this admission?: Yes Plan: Resolved. At admission 100.9/48 hrs. Afebrile since; >48 hours Leukocytosis has resolved. Blood cultures NGTD Urinalysis is negative for UTI. Chest x-ray is benign. He is noted to have mild skin irritation to skin folds. COVID negative. Likely related to rhabdomyolysis. No indications for antibiotics at this time. (3) Acute metabolic encephalopathy Is this a current diagnosis for this admission?: Yes Plan: Resolved. A&O x4 Secondary to his prolonged downtime with rhabdomyolysis and fever of unknown origin. Management of #1 Supportive care. Fall precautions. Discharge planning consulted. (4) BPH (benign prostatic hyperplasia) Qualifiers: Lower urinary tract symptom presence: unspecified whether lower urinary tract symptoms present Qualified Code(s): N40.0 - Benign prostatic hyperplasia without lower urinary tract symptoms Is this a current diagnosis for this admission?: Yes Plan: He is on Flomax at home which we will continue (5) Anticoagulated Is this a current diagnosis for this admission?: No Plan: He does have a history of paroxysmal atrial fibrillation with RVR (ED visit 2017). Patient confirms longstanding history of atrial fibrillation. He confirms that he should be on Eliquis twice daily. We will resume Eliquis 5 mg twice daily Continue monitor on telemetry. (6) Atrial fibrillation Qualifiers: Atrial fibrillation type: paroxysmal Qualified Code(s): I48.0 - Paroxysmal atrial fibrillation Is this a current diagnosis for this admission?: Yes Plan: Patient confirms a history of paroxysmal atrial fibrillation. This admission, he has been noted to have intermittent normal sinus rhythm and A. fib. Will start on low-dose metoprolol 12.5 mg XL twice daily for rate control. Continue home dose Eliquis. Monitor on telemetry. Would benefit from outpatient cardiology follow-up. (7) Generalized weakness Is this a current diagnosis for this admission?: Yes Plan: PT consulted. Fall precautions. Discharge planning consulted. - Plan Summary Summary: Discussed with patient's son, Warren (and daughter in law), by phone. - Time Time Spent with patient: 35 or more minutes Medications reviewed and adjusted accordingly: Yes Anticipated discharge: Home with Homehealth Within: within 72 hours - pending resolution of CK
[2019-08-29 07:29] LABS: ALBUMIN 3.5 g/dL (3.5-5.0); ALKALINE PHOSPHATASE 70 U/L (38-126); ANION GAP 6 (5-19); ASPARTATE AMINO TRANSFERASE 133 U/L (17-59); BILIRUBIN,TOTAL 0.6 mg/dL (0.2-1.3); BLOOD UREA NITROGEN 18 mg/dL (7-20); CARBON DIOXIDE 25 mmol/L (22-30); CHLORIDE 105 mmol/L (98-107); CREATINE KINASE 1004 U/L (55-170); GLUCOSE 82 mg/dL (75-110); POTASSIUM 4.3 mmol/L (3.6-5.0); TOTAL PROTEIN 6.2 g/dL (6.3-8.2)
[2019-08-29] MEDS: APIXABAN 5 MG TABLET PO SCH ×2 (09:49→18:27)
[2019-08-29] MEDS: METOPROLOL TARTRATE 25 MG TABLET PO SCH (09:50)
[2019-08-29] MEDS: RINGERS SOLUTION,LACTATED 1,000 ML IV PRN ×2 (11:25→20:07)
[2019-08-29] MEDS: NYSTATIN CREAM 15 GM TP SCH ×2 (11:27→18:31)
--- NOTE | 2019-08-29 12:42 | PDOC PROGRESS REPORT ---
Subjective Progress Note for:: 08/29/19 Subjective:: The patient is an 84-year-old male with a past medical history significant for atrial fibrillation, obesity, arthritis who was admitted 08/25/2019 with fever of unknown origin, rhabdomyolysis, and acute metabolic encephalopathy. Patient was seen on morning rounds. He was sitting up to the recliner, comfortably, on room air. He is A&Ox4. Feeling well today and appreciative of care. He is somewhat tearful; states that he is just grateful for the kindness of the nursing staff. He states that he spoke with his son at length yesterday, is interested in home health services. He denies depressive symptoms, does admit to some loneliness. Continues to have generalized weakness, although, improved mobility today. He denies fever, chills, chest pain, palpitations, dyspnea, cough, abdominal pain, nausea vomiting diarrhea. Reports good appetite. He has no questions or concerns at this time. No other concerns per nursing. Reason For Visit: RHABDOMYOLYSIS,FUO Physical Exam Vital Signs: Temp Pulse Resp BP Pulse Ox 97.9 F 80 19 133/84 H 97 08/29/19 11:30 08/29/19 11:30 08/29/19 11:30 08/29/19 11:30 08/29/19 11:30 Intake & Output 08/28/19 08/29/19 08/30/19 06:59 06:59 06:59 Intake Total 3641 2078 Output Total 100 600 Balance 3541 1478 Weight 110.5 kg 111.4 kg General appearance: PRESENT: no acute distress, cooperative - pleasant, morbidly obese, well-developed, well-nourished Head exam: PRESENT: atraumatic, normocephalic Eye exam: PRESENT: conjunctiva pink, EOMI, PERRLA. ABSENT: scleral icterus Mouth exam: PRESENT: moist, tongue midline Respiratory exam: PRESENT: clear to auscultation genny, symmetrical, unlabored. ABSENT: rales, rhonchi, wheezes Cardiovascular exam: PRESENT: RRR, +S1, +S2. ABSENT: diastolic murmur, rubs, systolic murmur Vascular exam: PRESENT: normal capillary refill Extremities exam: PRESENT: full ROM. ABSENT: calf tenderness, clubbing, pedal edema Musculoskeletal exam: PRESENT: ambulatory - w/ FWW and min assist Neurological exam: PRESENT: alert, awake, oriented to person, oriented to place, oriented to time, oriented to situation, CN II-XII grossly intact. ABSENT: motor sensory deficit Psychiatric exam: PRESENT: appropriate affect - tearful, normal mood. ABSENT: homicidal ideation, suicidal ideation Skin exam: PRESENT: dry, intact, warm. ABSENT: cyanosis, rash Results Laboratory Results: 08/28/19 06:25 08/29/19 05:56 08/29/19 05:56 Sodium 136.1 L Potassium 4.3 Chloride 105 Carbon Dioxide 25 Anion Gap 6 BUN 18 Creatinine 0.77 Est GFR ( Amer) > 60 Glucose 82 Calcium 9.0 Total Bilirubin 0.6 AST 133 H Alkaline Phosphatase 70 Total Protein 6.2 L Albumin 3.5 08/25/19 08/25/19 08/26/19 18:30 18:30 04:09 Creatine Kinase 7276 H 5792 H Troponin I 0.013 08/27/19 08/28/19 08/29/19 04:52 06:25 05:56 Creatine Kinase 4388 H 2471 H 1004 H Troponin I Impressions: Head CT 08/25/19 18:34 IMPRESSION: Mild involutional changes with no acute intracranial imaging findings. EVIDENCE OF ACUTE STROKE: NO. Chest X-Ray 08/25/19 19:18 IMPRESSION: NO ACUTE RADIOGRAPHIC FINDING IN THE CHEST. Shoulder X-Ray 08/25/19 20:15 IMPRESSION: Postsurgical changes, as above. No underlying acute osseous anomaly. copyright 2010 [employer]- All Rights Reserved Assessment and Plan - Diagnosis (1) Rhabdomyolysis Qualifiers: Rhabdomyolysis type: traumatic Encounter type: initial encounter Aung lified Code(s): T79.6XXA - Traumatic ischemia of muscle, initial encounter Is this a current diagnosis for this admission?: Yes Plan: Improved. Likely from a crush injury from prolonged downtime. Renal function is intact. CPK trending down; 7276-> 5792-> 4388-> 2471-> 1004 Continue generous IV fluids. Encourage p.o. fluids. Hold home dose spironolactone and Bumex. Follow-up chemistry and CK (2) Fever of unknown origin (FUO) Is this a current diagnosis for this admission?: Yes Plan: Resolved. At admission 100.9/48 hrs. Afebrile since; >48 hours Leukocytosis has resolved. Blood cultures NGTD Urinalysis is negative for UTI. Chest x-ray is benign. He is noted to have mild skin irritation to skin folds. COVID negative. Likely related to rhabdomyolysis. No indications for antibiotics at this time. (3) Acute metabolic encephalopathy Is this a current diagnosis for this admission?: Yes Plan: Resolved. A&O x4 Secondary to his prolonged downtime with rhabdomyolysis and fever of unknown origin. Management of #1 Supportive care. Fall precautions. Discharge planning consulted. (4) BPH (benign prostatic hyperplasia) Qualifiers: Lower urinary tract symptom presence: unspecified whether lower urinary tract symptoms present Qualified Code(s): N40.0 - Benign prostatic hyperplasia without lower urinary tract symptoms Is this a current diagnosis for this admission?: Yes Plan: He is on Flomax at home which we will continue (5) Anticoagulated Is this a current diagnosis for this admission?: No Plan: He does have a history of paroxysmal atrial fibrillation with RVR (ED visit 2017). Patient confirms longstanding history of atrial fibrillation. He confirms that he should be on Eliquis twice daily. We will resume Eliquis 5 mg twice daily Continue monitor on telemetry. (6) Atrial fibrillation Qualifiers: Atrial fibrillation type: paroxysmal Qualified Code(s): I48.0 - Paroxysmal atrial fibrillation Is this a current diagnosis for this admission?: Yes Plan: Patient confirms a history of paroxysmal atrial fibrillation. This admission, he has been noted to have intermittent normal sinus rhythm and A. fib. Continue metoprolol 25 mg XL twice daily for rate control. Continue home dose Eliquis. Monitor on telemetry. Would benefit from outpatient cardiology follow-up. (7) Generalized weakness Is this a current diagnosis for this admission?: Yes Plan: PT consulted. Fall precautions. Discharge planning consulted. (8) Tearfulness Is this a current diagnosis for this admission?: Yes Plan: Denies depressive symptoms prior to admission. Though very tearful at each interaction w/ healthcare staff. Talks about loneliness and loss of independence. Accepting of need to ask for/accept help offered. Will start Lexapro 10 mg nightly. Agreeable to home health services; discharge planning consulted. - Time Time Spent with patient: 35 or more minutes Medications reviewed and adjusted accordingly: Yes Anticipated discharge: Home with Homehealth Within: within 48 hours
[2019-08-29] MEDS: METOPROLOL SUCCINATE 25 MG TAB.SR.24H PO SCH (22:13)
[2019-08-29] MEDS: ESCITALOPRAM OXALATE 10 MG TABLET PO SCH (22:13)
[2019-08-30] MEDS ORDERED: FUROSEMIDE INJ/PF 40 MG/4 ML SDV IV ONE (04:45)
[2019-08-30 10:35] LABS: ANION GAP 7 (5-19); BLOOD UREA NITROGEN 15 mg/dL (7-20); CALCIUM 8.7 mg/dL (8.4-10.2); CARBON DIOXIDE 25 mmol/L (22-30); CHLORIDE 104 mmol/L (98-107); CREATINE KINASE 346 U/L (55-170); GLUCOSE 104 mg/dL (75-110); POTASSIUM 4.1 mmol/L (3.6-5.0)
[2019-08-30] MEDS: APIXABAN 5 MG TABLET PO SCH ×2 (11:05→18:48)
[2019-08-30] MEDS: NYSTATIN CREAM 15 GM TP SCH ×2 (11:05→18:50)
[2019-08-30] MEDS: METOPROLOL SUCCINATE 25 MG TAB.SR.24H PO SCH ×2 (11:05→21:24)
[2019-08-30] MEDS ORDERED: ONDANSETRON HCL INJ/PF 4 MG/2 ML SDV IV PRN (12:30)
[2019-08-30] MEDS ORDERED: FUROSEMIDE INJ/PF 20 MG/2 ML SDV IV ONE (13:34)
--- NOTE | 2019-08-30 13:45 | PDOC PROGRESS REPORT ---
Subjective Progress Note for:: 08/30/19 Subjective:: The patient is an 84-year-old male with a past medical history significant for atrial fibrillation, obesity, arthritis who was admitted 08/25/2019 with fever of unknown origin, rhabdomyolysis, and acute metabolic encephalopathy. Patient was seen on morning rounds. He was sitting up to the recliner, comfortably, on room air after returning to the room after ambulating with physical therapy. He is A&Ox4. Feeling well today and appreciative of care. Somewhat fatigued after ambulating, but encouraged by improvement. Plans to call friends and arrange for "a lot of company at the house tomorrow" so that he will not be alone initially upon return home. He denies fever, chills, chest pain, palpitations, dyspnea, cough, abdominal pain, nausea vomiting diarrhea. He has no other questions or concerns at this time. No other concerns per nursing. Reason For Visit: RHABDOMYOLYSIS,FUO Physical Exam Vital Signs: Temp Pulse Resp BP Pulse Ox 97.4 F 76 18 116/80 100 08/30/19 11:55 08/30/19 11:55 08/30/19 11:55 08/30/19 11:55 08/30/19 11:55 Intake & Output 08/29/19 08/30/19 08/31/19 06:59 06:59 06:59 Intake Total 3078 2980 627 Output Total 600 1975 575 Balance 2478 1005 52 Weight 111.4 kg 111.9 kg General appearance: PRESENT: no acute distress, cooperative - pleasant, obese, well-developed, well-nourished Head exam: PRESENT: atraumatic, normocephalic Eye exam: PRESENT: conjunctiva pink, EOMI, PERRLA. ABSENT: scleral icterus Mouth exam: PRESENT: moist, tongue midline Respiratory exam: PRESENT: clear to auscultation genny, symmetrical, unlabored. ABSENT: rales, rhonchi, wheezes Cardiovascular exam: PRESENT: RRR. ABSENT: diastolic murmur, rubs, systolic murmur Vascular exam: PRESENT: normal capillary refill GI/Abdominal exam: PRESENT: normal bowel sounds, soft. ABSENT: distended, guarding, mass, organolmegaly, rebound, tenderness Rectal exam: PRESENT: deferred Extremities exam: PRESENT: full ROM, pedal edema, +2 edema - BLE. ABSENT: calf tenderness, clubbing Musculoskeletal exam: PRESENT: ambulatory - w/ FWW Neurological exam: PRESENT: alert, awake, oriented to person, oriented to place, oriented to time, oriented to situation, CN II-XII grossly intact. ABSENT: motor sensory deficit Psychiatric exam: PRESENT: appropriate affect, normal mood. ABSENT: homicidal ideation, suicidal ideation Skin exam: PRESENT: dry, intact, warm. ABSENT: cyanosis, rash Results Laboratory Results: 08/28/19 06:25 08/30/19 09:38 08/30/19 09:38 Sodium 135.9 L Potassium 4.1 Chloride 104 Carbon Dioxide 25 Anion Gap 7 BUN 15 Creatinine 0.78 Est GFR ( Amer) > 60 Glucose 104 Calcium 8.7 08/25/19 08/25/19 08/26/19 18:30 18:30 04:09 Creatine Kinase 7276 H 5792 H Troponin I 0.013 08/27/19 08/28/19 08/29/19 04:52 06:25 05:56 Creatine Kinase 4388 H 2471 H 1004 H Troponin I 08/30/19 09:38 Creatine Kinase 346 H Troponin I Impressions: Head CT 08/25/19 18:34 IMPRESSION: Mild involutional changes with no acute intracranial imaging findings. EVIDENCE OF ACUTE STROKE: NO. Chest X-Ray 08/25/19 19:18 IMPRESSION: NO ACUTE RADIOGRAPHIC FINDING IN THE CHEST. Shoulder X-Ray 08/25/19 20:15 IMPRESSION: Postsurgical changes, as above. No underlying acute osseous anomaly. copyright 2010 [employer]- All Rights Reserved Assessment and Plan - Diagnosis (1) Rhabdomyolysis Qualifiers: Rhabdomyolysis type: traumatic Encounter type: initial encounter Qualified Code(s): T79.6XXA - Traumatic ischemia of muscle, initial encounter Is this a current diagnosis for this admission?: Yes Plan: Resolved. Likely from a crush injury from prolonged downtime. Renal function is intact. CPK trending down; 7276-> 5792-> 4388-> 2471-> 1004-> 346 Resume 1/2 home dose bumex and spironolactone today. Did receive IV furosemide x1 r/t edema IVF discontinued. Encourage p.o. fluids. (2) Fever of unknown origin (FUO) Is this a current diagnosis for this admission?: Yes Plan: Resolved. At admission 100.9/48 hrs. Afebrile since; >48 hours Leukocytosis has resolved. Blood cultures NGTD Urinalysis is negative for UTI. Chest x-ray is benign. He is noted to have mild skin irritation to skin folds. COVID negative. Likely related to rhabdomyolysis. No indications for antibiotics at this time. (3) Acute metabolic encephalopathy Is this a current diagnosis for this admission?: Yes Plan: Resolved. A&O x4 Secondary to his prolonged downtime with rhabdomyolysis and fever of unknown origin. Management of #1 Supportive care. Fall precautions. Discharge planning consulted. (4) BPH (benign prostatic hyperplasia) Qualifiers: Lower urinary tract symptom presence: unspecified whether lower urinary tract symptoms present Qualified Code(s): N40.0 - Benign prostatic hyperplasia without lower urinary tract symptoms Is this a current diagnosis for this admission?: Yes Plan: He is on Flomax at home which we will continue (5) Anticoagulated Is this a current diagnosis for this admission?: No Plan: He does have a history of paroxysmal atrial fibrillation with RVR (ED visit 2017). Patient confirms longstanding history of atrial fibrillation. He confirms that he should be on Eliquis twice daily. We will resume Eliquis 5 mg twice daily Continue monitor on telemetry. (6) Atrial fibrillation Qualifiers: Atrial fibrillation type: paroxysmal Qualified Code(s): I48.0 - Paroxysmal atrial fibrillation Is this a current diagnosis for this admission?: Yes Plan: Patient confirms a history of paroxysmal atrial fibrillation. This admission, he has been noted to have intermittent normal sinus rhythm and A. fib. Continue metoprolol 25 mg XL twice daily for rate control. Continue home dose Eliquis. Monitor on telemetry. Would benefit from outpatient cardiology follow-up. (7) Generalized weakness Is this a current diagnosis for this admission?: Yes Plan: PT consulted. Fall precautions. Discharge planning consulted. (8) Tearfulness Is this a current diagnosis for this admission?: Yes Plan: Improved. Denies depressive symptoms prior to admission. Though very tearful at each interaction w/ healthcare staff. Talks about loneliness and loss of independence. Accepting of need to ask for/accept help offered. Will start Lexapro 10 mg nightly. Agreeable to home health services; discharge planning consulted. (9) Edema Qualifiers: Edema type: unspecified Qualified Code(s): R60.9 - Edema, unspecified Is this a current diagnosis for this admission?: Yes Plan: +2, nonpitting, BLE edema secondary to IV fluid resuscitation in setting of rhabdomyolysis. IV fluids were discontinued. IV furosemide x1 early this morning. Resume one half his normal dosing of bumetanide and spironolactone. RAY hose Keep legs elevated when not ambulatory - Time Time Spent with patient: 25-34 minutes Medications reviewed and adjusted accordingly: Yes Anticipated discharge: Home with Homehealth Within: within 24 hours
[2019-08-30] MEDS ORDERED: BUMETANIDE 1 MG TABLET PO ONE (14:30)
[2019-08-30] MEDS ORDERED: BUMETANIDE 1 MG PO SCH (18:00)
[2019-08-30] MEDS: BUMETANIDE 1 MG TABLET PO SCH (18:48)
[2019-08-30] MEDS: ESCITALOPRAM OXALATE 10 MG TABLET PO SCH (21:24)
[2019-08-31] MEDS: BUMETANIDE 1 MG TABLET PO SCH (09:14)
[2019-08-31] MEDS: APIXABAN 5 MG TABLET PO SCH (09:15)
[2019-08-31] MEDS: METOPROLOL SUCCINATE 25 MG TAB.SR.24H PO SCH (09:15)
[2019-08-31] MEDS: NYSTATIN CREAM 15 GM TP SCH (09:16)
[2019-08-31] MEDS ORDERED: SPIRONOLACTONE 25 MG TABLET PO SCH (10:00)
--- NOTE | 2019-08-31 10:14 | PDOC DISCHARGE SUMMARY ---
Impression - Admit/DC Date/PCP Admission Date/Primary Care Provider: 08/25/19 21:29 VIRAL HIGHTOWER MD Discharge Date: 08/31/19 - Discharge Diagnosis (1) Rhabdomyolysis Is this a current diagnosis for this admission?: Yes (2) Fever of unknown origin (FUO) Is this a current diagnosis for this admission?: Yes (3) Acute metabolic encephalopathy Is this a current diagnosis for this admission?: Yes (4) BPH (benign prostatic hyperplasia) Is this a current diagnosis for this admission?: Yes (5) Anticoagulated Is this a current diagnosis for this admission?: No (6) Atrial fibrillation Is this a current diagnosis for this admission?: Yes (7) Generalized weakness Is this a current diagnosis for this admission?: Yes (8) Tearfulness Is this a current diagnosis for this admission?: Yes (9) Edema Is this a current diagnosis for this admission?: Yes - Additional Information Discharge Diet: Cardiac Discharge Activity: Activity As Tolerated, Balance Activity w/Rest, Slowly Increase Activity Referrals: VIRAL HIGHTOWER MD [Primary Care Provider] - 09/09/19 11:15 am (Follow up within 1 week.) Prescriptions: Spironolactone [Aldactone 25 mg Tablet] 25 mg PO DAILY #30 tablet Bumetanide [Bumex 1 mg Tablet] 1 mg PO BID #60 tablet Apixaban [Eliquis 5 mg Tablet] 5 mg PO BID #60 tablet Escitalopram Oxalate [Lexapro 10 mg Tablet] 10 mg PO QHS #30 tablet Metoprolol Succinate [Toprol Xl 25 mg Tab.sr] 25 mg PO Q12 #60 tab.sr.24h Home Medications: Docusate Sodium [Colace 100 mg Capsule] 100 mg PO QID 08/25/19 Tramadol HCl [Ultram] 50 mg PO DAILYP PRN 08/25/19 Acetaminophen [Tylenol 325 mg Tablet] 650 mg PO Q4HP PRN tablet 08/31/19 Apixaban [Eliquis 5 mg Tablet] 5 mg PO BID #60 tablet 08/31/19 Bumetanide [Bumex 1 mg Tablet] 1 mg PO BID #60 tablet 08/31/19 Escitalopram Oxalate [Lexapro 10 mg Tablet] 10 mg PO QHS #30 tablet 08/31/19 Metoprolol Succinate [Toprol Xl 25 mg Tab.sr] 25 mg PO Q12 #60 tab.sr.24h 08/31/19 Spironolactone [Aldactone 25 mg Tablet] 25 mg PO DAILY #30 tablet 08/31/19 History of Present Illiness History of Present Illness: Per h&P by Dr. Faith: ESTER CARTER JR is a 84 year old male who was found down on the floor in his home by a neighbor who said they had not seen him in a while. Patient was found down on the floor and EMS said he smelled like urine and there was a little bit of blood on him as well. He had some skin tears on his upper extremity and bruise over his right scapula. Patient is unable to answer questions appropriately. He does know his name and where he is but he thought I was his jeweler. He had a fever whenever he first came in but he has no obvious source of infection. He was given a dose of vancomycin and Rocephin in the ER but no blood cultures were obtained prior to administration of the antibiotic. Chest x-ray was clear. Head CT was unremarkable. He did have a leukocytosis and an elevated CPK but otherwise had no substantial lab abnormalities. Hospital Course Hospital Course: (1) Rhabdomyolysis Resolved. Likely from a crush injury from prolonged downtime. Renal function is intact. CPK trending down; 7276-> 5792-> 4388-> 2471-> 1004-> 346 Resume 1/2 home dose bumex and spironolactone Did receive IV furosemide x2 r/t edema IVF discontinued. Encourage p.o. fluids. (2) Fever of unknown origin (FUO) Resolved. At admission 100.9/48 hrs. Afebrile since; >48 hours Leukocytosis has resolved. Blood cultures NGTD Urinalysis is negative for UTI. Chest x-ray is benign. He is noted to have mild skin irritation to skin folds. COVID negative. Likely related to rhabdomyolysis. No indications for antibiotics at this time. (3) Acute metabolic encephalopathy Resolved. A&O x4 Secondary to his prolonged downtime with rhabdomyolysis and fever of unknown origin. Management of #1 Supportive care. Fall precautions. Discharge planning consulted. (4) BPH (benign prostatic hyperplasia) He is on Flomax at home which we will continue (5) Anticoagulated He does have a history of paroxysmal atrial fibrillation with RVR (ED visit 2017). Patient confirms longstanding history of atrial fibrillation. He confirms that he should be on Eliquis twice daily. We will resume Eliquis 5 mg twice daily (6) Atrial fibrillation Patient confirms a history of paroxysmal atrial fibrillation. This admission, he has been noted to have intermittent normal sinus rhythm and A. fib. Continue metoprolol 25 mg XL twice daily for rate control. Continue home dose Eliquis. Would benefit from outpatient cardiology follow-up. (7) Generalized weakness PT consulted; doing well w/ FWW Fall precautions. Discharge planning consulted. (8) Tearfulness Improved. Denies depressive symptoms prior to admission. Though very tearful at each interaction w/ healthcare staff. Talks about loneliness and loss of independence. Accepting of need to ask for/accept help offered. Will start Lexapro 10 mg nightly. Agreeable to home health services; discharge planning consulted. (9) Edema Improved. BLE edema secondary to IV fluid resuscitation in setting of rhabdomyolysis. IV fluids were discontinued. IV furosemide x2 prior to discharge with improvement. Resumed 1/2 his normal dosing of bumetanide and spironolactone. RAY hose Keep legs elevated when not ambulatory Physical Exam Vital Signs: Temp Pulse Resp BP Pulse Ox 97.5 F 51 L 18 117/59 L 95 08/31/19 08:13 08/31/19 08:13 08/31/19 08:13 08/31/19 08:13 08/31/19 08:13 Intake & Output 08/30/19 08/31/19 09/01/19 06:59 06:59 06:59 Intake Total 2980 1103 Output Total 6898 2525 Balance 1005 -1422 Weight 111.9 kg 111.9 kg General appearance: PRESENT: no acute distress, cooperative, obese, well- developed, well-nourished Head exam: PRESENT: atraumatic, normocephalic Eye exam: PRESENT: conjunctiva pink, EOMI, PERRLA. ABSENT: scleral icterus Mouth exam: PRESENT: moist, tongue midline Respiratory exam: PRESENT: clear to auscultation genny, symmetrical, unlabored. ABSENT: rales, rhonchi, wheezes Cardiovascular exam: PRESENT: RRR, +S1, +S2. ABSENT: diastolic murmur, rubs, systolic murmur Pulses: PRESENT: normal dorsalis pedis pul Vascular exam: PRESENT: normal capillary refill Extremities exam: PRESENT: full ROM, +1 edema - BLE; imrpoved from yesterday. ABSENT: calf tenderness, clubbing Musculoskeletal exam: PRESENT: ambulatory - independent w/ walker Neurological exam: PRESENT: alert, awake, oriented to person, oriented to place, oriented to time, oriented to situation, CN II-XII grossly intact. ABSENT: motor sensory deficit Psychiatric exam: PRESENT: appropriate affect, normal mood. ABSENT: homicidal ideation, suicidal ideation Skin exam: PRESENT: dry, intact, warm. ABSENT: cyanosis, rash Results Laboratory Results: WBC 9.3 10^3/uL (4.0-10.5) 08/28/19 06:25 RBC 4.80 10^6/uL (4.35-5.55) 08/28/19 06:25 Hgb 15.3 g/dL (13.5-17.0) 08/28/19 06:25 Hct 43.2 % (37.9-51.0) 08/28/19 06:25 MCV 90 fl (80-97) 08/28/19 06:25 MCH 31.9 pg (27.0-33.4) 08/28/19 06:25 MCHC 35.4 g/dL (32.0-36.0) 08/28/19 06:25 RDW 13.1 % (11.5-14.0) 08/28/19 06:25 Plt Count 213 10^3/uL (150-450) 08/28/19 06:25 Lymph % (Auto) 13.3 % (13-45) 08/28/19 06:25 Mathews % (Auto) 7.4 % (3-13) 08/28/19 06:25 Eos % (Auto) 2.5 % (0-6) 08/28/19 06:25 Baso % (Auto) 1.0 % (0-2) 08/28/19 06:25 Absolute Neuts (auto) 7.1 10^3/uL (1.7-8.2) 08/28/19 06:25 Absolute Lymphs (auto) 1.2 10^3/uL (0.5-4.7) 08/28/19 06:25 Absolute Monos (auto) 0.7 10^3/uL (0.1-1.4) 08/28/19 06:25 Absolute Eos (auto) 0.2 10^3/uL (0.0-0.6) 08/28/19 06:25 Absolute Basos (auto) 0.1 10^3/uL (0.0-0.2) 08/28/19 06:25 Total Counted 100 08/25/19 18:30 Seg Neutrophils % 75.8 % (42-78) 08/28/19 06:25 Seg Neuts % (Manual) 93 % (42-78) H 08/25/19 18:30 Lymphocytes % (Manual) 2 % (13-45) L 08/25/19 18:30 Monocytes % (Manual) 5 % (3-13) 08/25/19 18:30 Eosinophils % (Manual) 0 % (0-6) 08/25/19 18:30 Basophils % (Manual) 0 % (0-2) 08/25/19 18:30 Abs Neuts (Manual) 15.0 10^3/uL (1.7-8.2) H 08/25/19 18:30 Abs Lymphs (Manual) 0.3 10^3/uL (0.5-4.7) L 08/25/19 18:30 Abs Monocytes (Manual) 0.8 10^3/uL (0.1-1.4) 08/25/19 18:30 Absolute Eos (Manual) 0.0 10^3/uL (0.0-0.6) 08/25/19 18:30 Abs Basophils (Manual) 0.0 10^3/uL (0.0-0.2) 08/25/19 18:30 Platelet Comment ADEQUATE 08/25/19 18:30 RBC Morph Comment NORMO-CYTIC/CHROMIC 08/25/19 18:30 PT 15.7 SEC (11.4-15.4) H 08/25/19 18:30 INR 1.25 08/25/19 18:30 Sodium 135.9 mmol/L (137-145) L 08/30/19 09:38 Potassium 4.1 mmol/L (3.6-5.0) 08/30/19 09:38 Chloride 104 mmol/L (98-107) 08/30/19 09:38 Carbon Dioxide 25 mmol/L (22-30) 08/30/19 09:38 Anion Gap 7 (5-19) 08/30/19 09:38 BUN 15 mg/dL (7-20) 08/30/19 09:38 Creatinine 0.78 mg/dL (0.52-1.25) 08/30/19 09:38 Est GFR ( Amer) > 60 (>60) 08/30/19 09:38 Est GFR (MDRD) Non-Af > 60 (>60) 08/30/19 09:38 Glucose 104 mg/dL (75-110) 08/30/19 09:38 Lactic Acid 1.8 mmol/L (0.7-2.1) 08/25/19 18:30 Calcium 8.7 mg/dL (8.4-10.2) 08/30/19 09:38 Magnesium 2.0 mg/dL (1.6-2.3) 08/28/19 06:25 Total Bilirubin 0.6 mg/dL (0.2-1.3) 08/29/19 05:56 Direct Bilirubin 0.0 mg/dL (0.0-0.4) 08/29/19 05:56 Neonat Total Bilirubin Not Reportable 08/29/19 05:56 Neonat Direct Bilirubin Not Reportable 08/29/19 05:56 Neonat Indirect Bili Not Reportable 08/29/19 05:56 AST 133 U/L (17-59) H 08/29/19 05:56 ALT 95 U/L (<50) H 08/29/19 05:56 Alkaline Phosphatase 70 U/L (38-126) 08/29/19 05:56 Creatine Kinase 346 U/L (55-170) H 08/30/19 09:38 Troponin I 0.013 ng/mL 08/25/19 18:30 Total Protein 6.2 g/dL (6.3-8.2) L 08/29/19 05:56 Albumin 3.5 g/dL (3.5-5.0) 08/29/19 05:56 Urine Color MARIA ELENA 08/25/19 18:30 Urine Appearance SLIGHTLY-CLOUDY 08/25/19 18:30 Urine pH 5.0 (5.0-9.0) 08/25/19 18:30 Ur Specific Lyman 1.025 08/25/19 18:30 Urine Protein 100 mg/dL (NEGATIVE) H 08/25/19 18:30 Urine Glucose (UA) NEGATIVE mg/dL (NEGATIVE) 08/25/19 18:30 Urine Ketones TRACE mg/dL (NEGATIVE) H 08/25/19 18:30 Urine Blood LARGE (NEGATIVE) H 08/25/19 18:30 Urine Nitrite NEGATIVE (NEGATIVE) 08/25/19 18:30 Urine Bilirubin NEGATIVE (NEGATIVE) 08/25/19 18:30 Urine Urobilinogen NEGATIVE mg/dL (<2.0) 08/25/19 18:30 Ur Leukocyte Esterase NEGATIVE (NEGATIVE) 08/25/19 18:30 Urine WBC (Auto) 2 /HPF 08/25/19 18:30 Urine RBC (Auto) 2 /HPF 08/25/19 18:30 U Hyaline Cast (Auto) 1 /LPF 08/25/19 18:30 Squamous Epi Cells Auto 1 /HPF 08/25/19 18:30 Amorphous Sediment Auto TRACE /HPF 08/25/19 18:30 Urine Mucus (Auto) MOD /LPF 08/25/19 18:30 Urine Ascorbic Acid NEGATIVE (NEGATIVE) 08/25/19 18:30 Urine Opiates Screen NEGATIVE 08/25/19 18:30 Urine Methadone Screen NEGATIVE 08/25/19 18:30 Ur Barbiturates Screen NEGATIVE 08/25/19 18:30 Ur Phencyclidine Scrn NEGATIVE 08/25/19 18:30 Ur Amphetamines Screen NEGATIVE 08/25/19 18:30 U Benzodiazepines Scrn NEGATIVE 08/25/19 18:30 Urine Cocaine Screen NEGATIVE 08/25/19 18:30 U Marijuana (THC) Screen NEGATIVE 08/25/19 18:30 Serum Alcohol < 10 mg/dL (NONE DETECTED) 08/25/19 18:30 COVID-19 Source NASOPHARYNGEAL 08/25/19 22:24 COVID-19 (GRZEGORZ) NOT DETECTED 08/25/19 22:24 08/25/19 18:30 Troponin I 0.013 Impressions: Head CT 08/25/19 18:34 IMPRESSION: Mild involutional changes with no acute intracranial imaging findings. EVIDENCE OF ACUTE STROKE: NO. Chest X-Ray 08/25/19 19:18 IMPRESSION: NO ACUTE RADIOGRAPHIC FINDING IN THE CHEST. Shoulder X-Ray 08/25/19 20:15 IMPRESSION: Postsurgical changes, as above. No underlying acute osseous anomaly. copyright 2010 [employer]- All Rights Reserved Plan Plan of Treatment: Patient is discharged home in stable condition. Has made arrangements for him to receive home health nursing, PT/OT, aide, and social work administrator services. He is advised to follow-up with his primary care provider within 1 week. He has been educated that many of his antihypertensive medications no change; specifically have reduced the dose of his furosemide and spironolactone. He is encouraged to drink plenty of water and his follow daily weight; report any weight changes to his provider as this would prompt adjustments to his diuretic medications. He is further advised of the importance of avoiding heat exposure. He is encouraged to return to the emergency department as needed for concerning symptoms. Time Spent: Greater than 30 Minutes Stroke Is this a Stroke Patient?: No Acute Heart Failure - Is this a Heart Failure Patient?: No
[2019-08-31 12:58] VITALS: BP 124/84
== END 2019-08-31 14:50 | disposition home health service (06) | DRG 557 ==
LOC: ER 18:13 → EH 21:29 → ICU 08-26 01:03 → 3N 08-26 14:20 → 4N 08-28 07:36
PROVIDERS: ADMIT Family Medicine; ATTEND Registered Nurse
DX: M62.82 Rhabdomyolysis (principal); G93.41 Metabolic encephalopathy; I48.0 Paroxysmal atrial fibrillation; N40.0 Benign prostatic hyperplasia without lower urinary tract symptoms; K21.9 Gastro-esophageal reflux disease without esophagitis; M19.90 Unspecified osteoarthritis, unspecified site; R53.1 Weakness; R50.9 Fever, unspecified; R40.2242 Coma scale, best verbal response, confused conversation, at arrival to emergency department; R40.2142 Coma scale, eyes open, spontaneous, at arrival to emergency department; R40.2362 Coma scale, best motor response, obeys commands, at arrival to emergency department; S51.012A Laceration without foreign body of left elbow, initial encounter; S51.011A Laceration without foreign body of right elbow, initial encounter; E66.01 Morbid (severe) obesity due to excess calories; W18.39XA Other fall on same level, initial encounter; Y93.89 Activity, other specified; Y92.018 Other place in single-family (private) house as the place of occurrence of the external cause; Z79.01 Long term (current) use of anticoagulants; Z79.899 Other long term (current) drug therapy; Z20.828 Contact with and (suspected) exposure to other viral communicable diseases; Z96.653 Presence of artificial knee joint, bilateral
CPT/HCPCS: 36415; 70450; 71045; 80048; 80053; 80307; 81001; 82550; 83605; 83735; 84484; 85025; 85610; 87040; 87635; 93005; 93010; 96365; 99285; C9803; J0696; J1644; J1940; J3370; J3490; J7030; J7120